=== PATIENT | male | born 1940 | race Caucasian/White ===

== ENCOUNTER → 2016-05-14 | Outpatient (CLI) | payer BC ==
[~2016-05-14] MED LIST: ASCO100T PO; CYAN3INJ IM; CYNI1000 INJ; ERGO1CAP35 PO; ERGO500037 PO; METO50TA7 PO; PANT40TA PO; PLN5 PO; SIMV40TA2 PO
[2016-05-14 15:48] LABS: BLOOD UREA NITROGEN 40 mg/dl (7-18); BUN/CREATININE RATIO 12.4 (10-20); CALCIUM 8.6 mg/dl (8.5-10.1); CARBON DIOXIDE 17 mmol/L (21-32); CHLORIDE 116 mmol/L (98-107); GLUCOSE 117 mg/dl (70-99); PHOSPHORUS 3.2 mg/dl (2.5-4.9); POTASSIUM 4.9 mmol/L (3.5-5.1); SODIUM 141 mmol/L (136-145)
[2016-05-14 15:57] LABS: THYROID STIMULATING HORMONE 0.054 uIu/ml (0.300-4.500)
[2016-05-14 15:58] LABS: URINE PROTIEN/CREAT RATIO 0.7 (0-0.2); URINE TOTAL PROTEIN 56.2 mg/dl (0-11.9)
[2016-05-14 16:02] LABS: HEMATOCRIT 35.1 % (42-52); MEAN CELL VOLUME 94.1 fL (80-100); MEAN CORPUSCULAR HEMOGLOBIN 31.9 pg (25-34); MEAN CORPUSCULAR HGB CONC 33.9 g/dl (32-36); MEAN PLATELET VOLUME 11.2 fL (7.4-10.4); PLATELET COUNT 97 K/uL (130-400); RED BLOOD COUNT 3.73 M/uL (4.7-6.1); WHITE BLOOD COUNT 7.57 K/uL (4.8-10.8)
== END | disposition home or self-care (01) ==
LOC: C.LAB1850 14:18
PROVIDERS: ATTEND Internal Medicine Nephrology
DX: E03.9 Hypothyroidism, unspecified (principal); E55.9 Vitamin D deficiency, unspecified; I12.9 Hypertensive chronic kidney disease with stage 1 through stage 4 chronic kidney disease, or unspecified chronic kidney disease; D64.9 Anemia, unspecified; N18.4 Chronic kidney disease, stage 4 (severe)

== ENCOUNTER 2016-09-03 09:46 | Inpatient (IN) | payer BC, OTHER ==
[2016-09-03] VITALS (8 sets, daily range): BP systolic 111–137; BP diastolic 71–84; PULSE 86–125; TEMP 36.3–36.8; O2SAT 90–94; Ht 185.4 cm; Wt 86.6 kg
[~2016-09-03] VITALS: Ht 185.4 cm; Wt 86.6 kg
[~2016-09-03 09:46] MED LIST changes: -CYNI1000 INJ; -ERGO500037 PO
[2016-09-03] MEDS ORDERED: ALBUT/IPRATROP 3MG/0.5MG NEB 3 ML VIAL INH ONE (10:30)
[2016-09-03 10:36] LABS: ISTAT CREATININE 3.3 mg/dl (0.6-1.3); ISTAT HEMOGLOBIN 15.3 g/dl (14.0-18.0); ISTAT IONIZED CALCIUM 1.23 mmol/l (1.12-1.32)
--- NOTE | 2016-09-03 10:36 | EMERGENCY ROOM VISIT NOTE ---
History Report prepared by Wilder: Harris Peralta Under the Supervision of: Dr. Jessee Genao M.D. First contact with patient: 09:58 Chief Complaint: SHORTNESS OF BREATH Stated Complaint: KIDNEY PROBLEMS, COUGHING UP BLOOD Nursing Triage Summary: Pt c/o kidney disease "I haven't been to dialysis yet but I think I'm headed that way, I'm short of breath". Does have a fistula. SOB worse since last night. States last night he ate pie and it tasted weird and started coughing and coughed up blood then vomited. Pt place on 2L NC in triage. History of Present Illness The patient is a 76 year old male who presents to the Emergency Room with complaints of constant shortness of breath starting around 0230 this morning. The patient states that he had a piece of pie last night, and then he went to sleep. He states that he then woke up about an hour later with some chest pain and then shortness of breath and coughing up blood. He additionally states that around 0600 he started to vomit. The patient states that he is not dialysis yet for his kidney disease. He states that he has a fistula in his left arm, and he is not on oxygen at home. Source of History: patient Onset: 0230 Position: other (global) Quality: other (shortness of breath) Timing: constant Associated Symptoms: + cough (blood), + chest pain, + vomiting Review of Systems See HPI for pertinent positives & negatives. A total of 10 systems reviewed and were otherwise negative. Past Medical & Surgical Medical Problems: (1) CHF (congestive heart failure) (2) Hemoptysis Social History Smoking Status: Former Smoker Marital Status: Occupation Status: retired Current/Historical Medications Scheduled Ascorbic Acid (Vitamin C), 100 MG PO QAM Cyanocobalamin (Cyanocobalamin), 1 ML INJ Q4WK Ergocalciferol (Vitamin D 85715 Unit), 50,000 UNIT PO Q4WK Felodipine (Felodipine ER), 2.5 MG PO QAM Metoprolol Succ (Toprol Xl) (Toprol-Xl), 75 MG PO BID Pantoprazole (Protonix), 40 MG PO QAM Simvastatin (Zocor), 60 MG PO QPM Allergies Coded Allergies: Hydrochlorothiazide (Verified Allergy, Unknown, PT. DOESN'T REMEMBER REACTION, 09/03/16) Aspirin (Verified Adverse Reaction, Intermediate, LARGE DOSES ASPIRIN- BLEEDING AND ABDOMINAL IRRITATION, 09/03/16) CAN TAKE 81 MG. ASPIRIN Q2D Paroxetine (Verified Adverse Reaction, Mild, UPSET STOMACH, 09/03/16) Sertraline (Verified Adverse Reaction, Mild, UPSET STOMACH, 09/03/16) Clopidogrel (Verified Adverse Reaction, Unknown, UPSET STOMACH, 09/03/16) Physical Exam Vital Signs Date Time Temp Pulse Resp B/P (MAP) Pulse Ox O2 Delivery O2 Flow Rate FiO2 09/03/16 11:01 156/92 09/03/16 10:46 98 17 98 09/03/16 10:35 93 16 94 Nasal Cannula 3.0 09/03/16 10:18 97 09/03/16 10:05 94 Nasal Cannula 4.0 09/03/16 10:05 94 Nasal Cannula 4.0 09/03/16 10:03 156/93 09/03/16 09:58 Nasal Cannula 2.0 09/03/16 09:55 88 Room Air 09/03/16 09:49 36.4 107 22 142/80 88 Room Air Physical Exam GENERAL: Patient is a healthy-appearing well-nourished male HEAD: Normocephalic atraumatic EYES: Ocular movements intact pupils equal and react to light OROPHARYNX mucous membranes are moist no exudates present no erythema or edema present NECK: Supple no nuchal rigidity CHEST: Good equal expansion LUNGS: Wheezes throughout lung mercado CARDIAC: Normal S1 and S2 ABDOMEN: Soft nontender no guarding BACK: No CVA tenderness EXTREMITIES: No pain upon palpation normal muscle strength in all groups no clubbing cyanosis or edema NEURO: Patient is following commands and answering questions appropriately. Alert and oriented x3 Cranial Nerves 2-12 grossly intact Medical Decision & Procedures ER Provider Diagnostic Interpretation: Radiology results as stated below per my review and radiologist interpretation: CHEST ONE VIEW PORTABLE CLINICAL HISTORY: Atypical chest pain and hemoptysis COMPARISON STUDY: No previous studies for comparison. FINDINGS: The heart is borderline enlarged. There is an asymmetric right lung pulmonary edema pattern. Clinical correlation is advocated as an infectious/inflammatory process could appear similar. Small pleural effusions are suspected. IMPRESSION: Asymmetric pulmonary edema pattern. Clinical and radiographic follow-up is recommended. Electronically signed by: Garry Higgins M.D. 09/03/2016 10:44 AM Dictated Date/Time: 09/03/2016 10:41 AM (CHEST) THORAX WITHOUT CLINICAL HISTORY: 76 years-old Male presenting with occult pneumonia, history of colorectal carcinoma. TECHNIQUE: Multidetector CT angiography was performed without the use of intravenous contrast. IV contrast: None. COMPARISON: Correlation made to PET/CT from 2013. CT DOSE: The estimated cumulative dose is 304.10 mGy.cm. FINDINGS: Operations Administrator topogram: Diffuse reticular opacities. On soft tissue windows, normal thyroid and thoracic inlet. Multiple subcentimeter mediastinal lymph nodes, possibly reactive. Atherosclerosis of the aortic arch. Top normal heart size. Aortic valve and coronary artery calcification. No pericardial effusion. Small bilateral pleural effusions. Upper abdomen unremarkable for multiple well-defined hypodensities in the liver, unchanged since 2013 and likely hepatic cysts or hamartomas. Enlarged lymph node in the gastrohepatic region measuring 11 mm in the short axis (series 2 image 61), also unchanged since 2013. On lung windows, diffuse emphysematous changes with superimposed groundglass and more solid consolidation primarily involving the right lung and dependent portions of the left lung. Airways remain patent. On bone windows, multilevel degenerative changes of the thoracic spine. IMPRESSION: 1. Multifocal pneumonia superimposed on diffuse emphysema. 2. Bilateral small parapneumonic effusions. No pleural thickening at this time to suggest pleuritis/empyema, allowing for noncontrast technique. Electronically signed by: Davis Wilkinson M.D. 09/03/2016 12:58 PM Dictated Date/Time: 09/03/2016 12:49 PM Laboratory Results 09/03/16 00:00 Red Blood Count 4.20, Mean Corpuscular Volume 93.8, Mean Corpuscular Hemoglobin 31.4, Mean Corpuscular Hemoglobin Concent 33.5, Mean Platelet Volume 10.5, Neutrophils (%) (Auto) 85.3, Lymphocytes (%) (Auto) 6.1, Monocytes (%) (Auto) 8.2, Eosinophils (%) (Auto) 0.1, Basophils (%) (Auto) 0.1, Neutrophils # (Auto) 11.59, Lymphocytes # (Auto) 0.83, Monocytes # (Auto) 1.12, Eosinophils # (Auto) 0.01, Basophils # (Auto) 0.01 09/03/16 11:12 Test 09/03/16 00:00 09/03/16 10:15 09/03/16 10:25 09/03/16 11:12 White Blood Count 13.59 K/uL (4.8-10.8) Red Blood Count 4.20 M/uL (4.7-6.1) Hemoglobin 13.2 g/dL (14.0-18.0) Hematocrit 39.4 % (42-52) Mean Corpuscular Volume 93.8 fL (80-100) Mean Corpuscular Hemoglobin 31.4 pg (25-34) Mean Corpuscular Hemoglobin Concent 33.5 g/dl (32-36) Platelet Count 86 K/uL (130-400) Mean Platelet Volume 10.5 fL (7.4-10.4) Neutrophils (%) (Auto) 85.3 % Lymphocytes (%) (Auto) 6.1 % Monocytes (%) (Auto) 8.2 % Eosinophils (%) (Auto) 0.1 % Basophils (%) (Auto) 0.1 % Neutrophils # (Auto) 11.59 K/uL (1.4-6.5) Lymphocytes # (Auto) 0.83 K/uL (1.2-3.4) Monocytes # (Auto) 1.12 K/uL (0.11-0.59) Eosinophils # (Auto) 0.01 K/uL (0-0.5) Basophils # (Auto) 0.01 K/uL (0-0.2) RDW Standard Deviation 46.7 fL (36.4-46.3) RDW Coefficient of Variation 13.7 % (11.5-14.5) Immature Granulocyte % (Auto) 0.2 % Immature Granulocyte # (Auto) 0.03 K/uL (0.00-0.02) Platelet Estimate DECREASED Total Bilirubin 0.9 mg/dl (0.2-1) Direct Bilirubin mg/dl (0-0.2) Aspartate Amino Transf (AST/SGOT) U/L (15-37) Alanine Aminotransferase (ALT/SGPT) 16 U/L (12-78) Alkaline Phosphatase 73 U/L (45-117) Total Creatine Kinase U/L (39-308) Creatine Kinase MB 16.8 ng/ml (0.5-3.6) Creatine Kinase MB Ratio (0-3.0) Total Protein 7.9 gm/dl (6.4-8.2) Albumin 3.7 gm/dl (3.4-5.0) Lipase 172 U/L (73-393) Bedside Hemoglobin 15.3 g/dl (14.0-18.0) Bedside Hematocrit 45 % (42-52) Bedside Sodium 141 mEq/L (135-144) Bedside Potassium 5.3 mEq/L (3.3-5.0) Bedside Chloride 114 mEq/L (101-112) Bedside Total CO2 18 mEq/l (24-31) Bedside Blood Urea Nitrogen 52 mg/dl (7-18) Bedside Creatinine 3.3 mg/dl (0.6-1.3) Bedside Glucose (other) 188 mg/dl (70-99) Bedside Ionized Calcium (Janes) 1.23 mmol/l (1.12-1.32) Prothrombin Time 10.9 SECONDS (9.0-12.0) Prothromb Time International Ratio 1.0 (0.9-1.1) Activated Partial Thromboplast Time 26.9 SECONDS (21.0-31.0) Partial Thromboplastin Ratio 1.0 Anion Gap 10.0 mmol/L (3-11) Est Creatinine Clear Calc Drug Dose 21.5 ml/min Estimated GFR () 19.9 Estimated GFR (Non- 17.2 BUN/Creatinine Ratio 14.1 (10-20) Calcium Level 9.2 mg/dl (8.5-10.1) Labs reviewed by ED physician. Medications Administered Medications (Trade) Dose Ordered Sig/Edilson Route Start Time Stop Time Status Last Admin Dose Admin Albuterol/ Ipratropium (Duoneb) 12 ml ONE ONCE INH 09/03/16 10:30 09/03/16 10:31 DC 09/03/16 10:35 12 ML Morphine Sulfate (MoRPHine SULFATE INJ) 2 mg Q30M PRN IV 09/03/16 11:30 09/17/16 11:29 09/03/16 13:03 2 MG ECG Indication: SOB/dyspnea Rate (beats per minute): 100 Rhythm: sinus rhythm Findings: 1st degree AV block, RBBB, ST elevation, other (AVR. Depression in the anterior leads) Change: POSTERIOR EKG showed: Normal sinus rhythm at 98. 1st degree AV block and Right bundle branch block ED Course 1012: Past medical records reviewed. The patient was evaluated in room C8. A complete history and physical examination was performed. 1030: DuoNeb 12ml INH 1120: I reevaluated the patient, and he was resting. 1125: I discussed the patient's case with Elaine Arredondo. He is going to evaluate the patient for further treatment. Medical Decision Differential diagnosis: Etiologies such as infections, reactive airway disease, pneumonia, pneumothorax , COPD, CHF, cardiac ischemia, pulmonary embolism, musculoskeletal, gastrointestinal, as well as others were entertained. Blood Pressure Screening: Patient was found to have an elevated blood pressure and was referred to their primary care doctor for recheck and further treatment Medication Reconciliation: I attest that I have personally reviewed the patient' s current medication list This is a 76-year-old male who presents emergency department complaining of hypoxia. The patient has a history of renal failure describing today's 3.3. His chest x-rays concerning for pulmonary edema. He was given an hour-long breathing treatment in the emergency department however I am most concerned patient may have a blood clot. I did discuss the case with the hospitalist service who agreed to admit the patient. Patient was in agreement with the treatment plan. Consults Time Called: 112 Consulting Physician: Elaine Arredondo Returned Call: 1125 I discussed the patient's case with Elaine Arredondo. He is going to evaluate the patient for further treatment. Impression Primary Impression: Hypoxia Scribe Attestation The scribe's documentation has been prepared under my direction and personally reviewed by me in its entirety. I confirm that the note above accurately reflects all work, treatment, procedures, and medical decision making performed by me. Departure Information Dispostion Being Evaluated By Hospitalist Referrals No Doctor, Assigned (PCP)
--- NOTE | 2016-09-03 10:46 | DIAGNOSTIC IMAGING REPORT ---
CHEST ONE VIEW PORTABLE CLINICAL HISTORY: Atypical chest pain and hemoptysis COMPARISON STUDY: No previous studies for comparison. FINDINGS: The heart is borderline enlarged. There is an asymmetric right lung pulmonary edema pattern. Clinical correlation is advocated as an infectious/inflammatory process could appear similar. Small pleural effusions are suspected. IMPRESSION: Asymmetric pulmonary edema pattern. Clinical and radiographic follow-up is recommended. Electronically signed by: Garry Higgins M.D. 09/03/2016 10:44 AM Dictated Date/Time: 09/03/2016 10:41 AM
[2016-09-03] MEDS ORDERED: ATROPINE SULFATE 0.1 MG/ML 10 ML SYR IV ONE (10:59)
[2016-09-03] MEDS ORDERED: DEXTROSE 50% 50 ML SYR IV ONE (10:59)
[2016-09-03] MEDS ORDERED: AMIODARONE HCL INJ 50 MG/ML 3 ML VIAL IV ONE (10:59)
[2016-09-03] MEDS ORDERED: DOBUTamine 500MG / 250ML D5W IV ONE (10:59)
[2016-09-03] MEDS ORDERED: SODIUM CHLORIDE 0.9% 10ML FLUSH IV ONE (10:59)
[2016-09-03] MEDS ORDERED: MAGNESIUM SULFATE 1GM / D5W 1 GM BAG IV ONE (10:59)
[2016-09-03] MEDS ORDERED: DEXTROSE 5% 100 ML BAG IV ONE (10:59)
[2016-09-03] MEDS ORDERED: SODIUM BICARB 8.4% INJ 50 MEQ/50 ML SYR IV ONE (10:59)
[2016-09-03 11:20] LABS: ALKALINE PHOSPHATASE 73 U/L (45-117); ALT/SGPT 16 U/L (12-78); BLOOD UREA NITROGEN 49 mg/dl (7-18); BUN/CREATININE RATIO 14.3 (10-20); CARBON DIOXIDE 17 mmol/L (21-32); CHLORIDE 114 mmol/L (98-107); GLUCOSE 181 mg/dl (70-99); SODIUM 141 mmol/L (136-145)
[2016-09-03] MEDS ORDERED: ACETAMINOPHEN 325 MG TAB PO PRN (11:30)
[2016-09-03] MEDS ORDERED: ALUMINUM/MAGNESIUM/SIMETH (MAALOX MAX) 30 ML UDC PO PRN (11:30)
[2016-09-03] MEDS ORDERED: NITROGLYCERIN 0.4 MG SL PER TAB CHARGE SL PRN (11:30)
[2016-09-03] MEDS ORDERED: POLYETHYLENE (MIRALAX) 17 GM PACK PO PRN (11:30)
[2016-09-03] MEDS ORDERED: MAGNESIUM HYDROXIDE SUSP 30 ML UDC PO PRN (11:30)
[2016-09-03 11:52] LABS: BASO % 0.1 %; BASO ABS # 0.01 K/uL (0-0.2); COMPLETE YES; EOS % 0.1 %; HEMATOCRIT 39.4 % (42-52); IG% 0.2 %; LYMPH % 6.1 %; LYMPH ABS # 0.83 K/uL (1.2-3.4); MEAN CELL VOLUME 93.8 fL (80-100); MEAN CORPUSCULAR HEMOGLOBIN 31.4 pg (25-34); MEAN CORPUSCULAR HGB CONC 33.5 g/dl (32-36); MEAN PLATELET VOLUME 10.5 fL (7.4-10.4); MONO % 8.2 %; NEUT % 85.3 %; PLATELET COUNT 86 K/uL (130-400); PLT ESTIMATE DECREASED; WHITE BLOOD COUNT 13.59 K/uL (4.8-10.8)
[2016-09-03 11:52] LABS: PROTHROMBIN TIME (PATIENT) 10.9 SECONDS (9.0-12.0)
[2016-09-03] MEDS ORDERED: ERGO500037 PO (11:52)
[2016-09-03] MEDS ORDERED: CYNI1000 INJ (11:53)
[2016-09-03 11:58] LABS: BUN/CREATININE RATIO 14.1 (10-20); CALCIUM 9.2 mg/dl (8.5-10.1); CREATININE 3.3 mg/dl (0.60-1.40); POTASSIUM 4.9 mmol/L (3.5-5.1)
--- NOTE | 2016-09-03 12:29 | History and Physical ---
History & Physical Date & Time of Service: Sep 03, 2016 at 11:57 Chief Complaint: Kidney Problems, Coughing Up Blood Primary Care Physician: Davis Kendall M.D. History of Present Illness Source: patient 76 y/o M Hx HTN, HPL, BPH, AAA, CKD IV - Pt had enjoyed a slice of pie before retiring to bed the prior evening. He pt woke up from sleep with SOB and a coughing fit. He then had a few episodes of hemoptysis described as sputum mixed with bright red blood. On arrival to the ER he was tachycardic and hypoxic into the mid 80s. He denies significant CP, N/V or diaphoresis. Initial CXR is read as R sided, asymmetric pulmonary edema. Initial labs reveal a slight troponin elevation in the context of CKD. His creatinine is at baseline. He does not have a history of CHF. Past Medical/Surgical History 1) HTN 2) AAA - stenting x 2 3) R carotid stenosis - CEA 2013 4) Colon CA - partial colectomy 1995 5) BPH 6) CKD IV-V - pt has a fistula in place but has not yet required dialysis. 7) DVT R leg 2008 - states that this was not treated - insisting that he was never on COumadin and does not have a filter. 8) HPL Family History Reviewed - noncontributory Social History Smoking Status: Former Smoker Immunizations History of Influenza Vaccine: No History of Tetanus Vaccine?: No History of Pneumococcal: No History of Hepatitis B Vaccine: No Multi-Drug Resistant Organisms History of MDRO: No Allergies Coded Allergies: Hydrochlorothiazide (Verified Allergy, Unknown, PT. DOESN'T REMEMBER REACTION, 09/03/16) Aspirin (Verified Adverse Reaction, Intermediate, LARGE DOSES ASPIRIN- BLEEDING AND ABDOMINAL IRRITATION, 09/03/16) CAN TAKE 81 MG. ASPIRIN Q2D Paroxetine (Verified Adverse Reaction, Mild, UPSET STOMACH, 09/03/16) Sertraline (Verified Adverse Reaction, Mild, UPSET STOMACH, 09/03/16) Clopidogrel (Verified Adverse Reaction, Unknown, UPSET STOMACH, 09/03/16) Home Medications Scheduled Ascorbic Acid (Vitamin C), 100 MG PO QAM Cyanocobalamin (Cyanocobalamin), 1 ML INJ Q4WK Ergocalciferol (Vitamin D 95338 Unit), 50,000 UNIT PO Q4WK Felodipine (Felodipine ER), 2.5 MG PO QAM Metoprolol Succ (Toprol Xl) (Toprol-Xl), 75 MG PO BID Pantoprazole (Protonix), 40 MG PO QAM Simvastatin (Zocor), 60 MG PO QPM Review of Systems Constitutional: No fever, No chills, No sweats Eyes: No worsening of vision ENT: No hearing loss, No unusual epistaxis, No nasal symptoms Respiratory: + cough, + shortness of breath, + dyspnea on exertion, + dyspnea at rest, + hemoptysis Cardiovascular: + PND, No chest pain, No orthopnea Abdomen: No pain, No nausea, No vomiting Musculoskeletal: No joint pain Genitourinary - Male: No hematuria, No dysuria, No urinary frequency Neurologic: No memory loss, No paralysis, No weakness Psychiatric: No depression symptoms Endocrine: No fatigue Hematologic / Lymphatic: No abnormal bleeding/bruising Integumentary: No rash Allergic / Immunologic: No environmental allergies Physical Exam Vital Signs Date Time Temp Pulse Resp B/P (MAP) Pulse Ox O2 Delivery O2 Flow Rate FiO2 09/03/16 10:35 93 16 94 Nasal Cannula 3.0 09/03/16 10:18 97 09/03/16 10:05 94 Nasal Cannula 4.0 09/03/16 10:05 94 Nasal Cannula 4.0 09/03/16 09:58 Nasal Cannula 2.0 09/03/16 09:55 88 Room Air 09/03/16 09:49 36.4 107 22 142/80 88 Room Air General Appearance: WD/WN, no apparent distress, + pertinent finding (Thin, pleasant, elderly male in no distress) Head: normocephalic, atraumatic Eyes: normal inspection, EOMI ENT: normal ENT inspection, hearing grossly normal, TMs normal, pharynx normal Neck: supple, + JVD (Mostly on R side - slight) Respiratory/Chest: chest non-tender, + crackles (R side only - L lung clear - no wheezing) Cardiovascular: no gallop, no murmur, + tachycardia (regular ), + pertinent finding (Slight JVD) Abdomen/GI: normal bowel sounds, non tender, soft Back: normal inspection, no CVA tenderness Extremities/Musculoskelatal: normal inspection, no calf tenderness, normal capillary refill Neurologic/Psych: commercial relationship manager II-XII nml as tested, no motor/sensory deficits, alert, normal mood/affect, normal reflexes, oriented x 3 Skin: normal color, warm/dry, no rash Diagnostics Laboratory Results Results Past 24 Hours Test 09/03/16 00:00 09/03/16 10:15 09/03/16 10:25 09/03/16 11:12 Range/Units White Blood Count 13.59 4.8-10.8 K/uL Red Blood Count 4.20 4.7-6.1 M/uL Hemoglobin 13.2 14.0-18.0 g/dL Hematocrit 39.4 42-52 % Mean Corpuscular Volume 93.8 80-100 fL Mean Corpuscular Hemoglobin 31.4 25-34 pg Mean Corpuscular Hemoglobin Concent 33.5 32-36 g/dl Platelet Count 86 130-400 K/uL Mean Platelet Volume 10.5 7.4-10.4 fL Neutrophils (%) (Auto) 85.3 % Lymphocytes (%) (Auto) 6.1 % Monocytes (%) (Auto) 8.2 % Eosinophils (%) (Auto) 0.1 % Basophils (%) (Auto) 0.1 % Neutrophils # (Auto) 11.59 1.4-6.5 K/uL Lymphocytes # (Auto) 0.83 1.2-3.4 K/uL Monocytes # (Auto) 1.12 0.11-0.59 K/uL Eosinophils # (Auto) 0.01 0-0.5 K/uL Basophils # (Auto) 0.01 0-0.2 K/uL RDW Standard Deviation 46.7 36.4-46.3 fL RDW Coefficient of Variation 13.7 11.5-14.5 % Immature Granulocyte % (Auto) 0.2 % Immature Granulocyte # (Auto) 0.03 0.00-0.02 K/uL Platelet Estimate DECREASED Sodium Level 141 136-145 mmol/L Potassium Level 3.5-5.1 mmol/L Chloride Level 114 98-107 mmol/L Carbon Dioxide Level 17 21-32 mmol/L Anion Gap 10.0 15.0 16-25 mmol/L Blood Urea Nitrogen 49 7-18 mg/dl Creatinine 3.40 0.60-1.40 mg/dl Est Creatinine Clear Calc Drug Dose 20.9 ml/min Estimated GFR () 19.2 Estimated GFR (Non- 16.6 BUN/Creatinine Ratio 14.3 10-20 Random Glucose 181 70-99 mg/dl Calcium Level 9.0 8.5-10.1 mg/dl Total Bilirubin 0.9 0.2-1 mg/dl Direct Bilirubin 0-0.2 mg/dl Aspartate Amino Transf (AST/SGOT) 15-37 U/L Alanine Aminotransferase (ALT/SGPT) 16 12-78 U/L Alkaline Phosphatase 73 45-117 U/L Total Creatine Kinase 39-308 U/L Creatine Kinase MB 16.8 0.5-3.6 ng/ml Creatine Kinase MB Ratio 0-3.0 Troponin I 0.923 0-0.045 ng/ml Total Protein 7.9 6.4-8.2 gm/dl Albumin 3.7 3.4-5.0 gm/dl Lipase 172 73-393 U/L Bedside Hemoglobin 15.3 14.0-18.0 g/dl Bedside Hematocrit 45 42-52 % Bedside Sodium 141 135-144 mEq/L Bedside Potassium 5.3 3.3-5.0 mEq/L Bedside Chloride 114 101-112 mEq/L Bedside Total CO2 18 24-31 mEq/l Bedside Blood Urea Nitrogen 52 7-18 mg/dl Bedside Creatinine 3.3 0.6-1.3 mg/dl Bedside Glucose (other) 188 70-99 mg/dl Bedside Ionized Calcium (Janes) 1.23 1.12-1.32 mmol/l Prothrombin Time 10.9 9.0-12.0 SECONDS Prothromb Time International Ratio 1.0 0.9-1.1 Activated Partial Thromboplast Time 26.9 21.0-31.0 SECONDS Partial Thromboplastin Ratio 1.0 Diagnostic Radiology CXR read as R sided pulmonary edema - L lung clear EKG Sinus 1st degree AV RBBB Inf and Lat ST changes - depressions - mat represent a strain pattern Impression Assessment and Plan 76 y/o M Hx HTN, HPL, BPH, AAA, CKD IV - Pt had enjoyed a slice of pie before retiring to bed the prior evening. He pt woke up from sleep with SOB and a coughing fit. He then had a few episodes of hemoptysis described as sputum mixed with bright red blood. On arrival to the ER he was tachycardic and hypoxic into the mid 80s. He denies significant CP, N/V or diaphoresis. Initial CXR is read as R sided, asymmetric pulmonary edema. Initial labs reveal a slight troponin elevation in the context of CKD. His creatinine is at baseline. He does not have a history of CHF. 1) Cough/SOB/hemoptysis - differential includes acute CHF/pulmonary edema, aspiration possible plugging of R bronchus, PE. Cannot obtain a CT with contract as he has been teetering on ESRD and dialysis. We have requested an echo, VQ and CT without contrast. We will obtain serial troponins and hold off on anticoagulation pending test results. He states that he may have had R leg swelling a few days ago so we will obtain LE dopplers. NTG paste has been placed. Will consider Lasix again based on imaging results. We may need to consult cardio and/or pulmonary. 2) CKD - per pt creat is approximately baseline - he does have slight hyperK. Placed on low K diet and will trend function. He is receiving an albuterol treatment and we will consider a dose of Lasix or can provide Kayexalate with worsening hyperK. 3) Troponin is above reference range - EKG shows inf and lat depressions - more consistent with strain. We will trend troponins - he has had a hard time tolerating ASA ad Plavix due to gastric issues - we will provide regardless if there is evidence of an evolving [place] 4) HTN - cont Felodipine, Toprol 5) HPL - cont Zocor 6) BPH - cont Flomax - addendum will be provided following test results Full code - SCDs pending test results due to hemoptysis Total time for this admit including review of labs, meds, EKG, imaging, records - discussion with pt and ER attending - 38 min Level of Care Telemetry Resuscitation Status FULL RESUSCITATION VTE Prophylaxis VTE Risk Assessment Done? Y/N: Yes Risk Level: Moderate Given or contraindicated: SCD's
[2016-09-03] MEDS ORDERED: ALBUT/IPRATROP 3MG/0.5MG NEB 3 ML VIAL INH PRN (12:30)
--- NOTE | 2016-09-03 12:59 | DIAGNOSTIC IMAGING REPORT ---
(CHEST) THORAX WITHOUT CLINICAL HISTORY: 76 years-old Male presenting with occult pneumonia, history of colorectal carcinoma. TECHNIQUE: Multidetector CT angiography was performed without the use of intravenous contrast. IV contrast: None. COMPARISON: Correlation made to PET/CT from 2014. CT DOSE: The estimated cumulative dose is 304.10 mGy.cm. FINDINGS: Topography Technician topogram: Diffuse reticular opacities. On soft tissue windows, normal thyroid and thoracic inlet. Multiple subcentimeter mediastinal lymph nodes, possibly reactive. Atherosclerosis of the aortic arch. Top normal heart size. Aortic valve and coronary artery calcification. No pericardial effusion. Small bilateral pleural effusions. Upper abdomen unremarkable for multiple well-defined hypodensities in the liver, unchanged since 2014 and likely hepatic cysts or hamartomas. Enlarged lymph node in the gastrohepatic region measuring 11 mm in the short axis (series 2 image 61), also unchanged since 2014. On lung windows, diffuse emphysematous changes with superimposed groundglass and more solid consolidation primarily involving the right lung and dependent portions of the left lung. Airways remain patent. On bone windows, multilevel degenerative changes of the thoracic spine. IMPRESSION: 1. Multifocal pneumonia superimposed on diffuse emphysema. 2. Bilateral small parapneumonic effusions. No pleural thickening at this time to suggest pleuritis/empyema, allowing for noncontrast technique. Electronically signed by: Davis Wilkinson M.D. 09/03/2016 12:58 PM Dictated Date/Time: 09/03/2016 12:49 PM
[2016-09-03] MEDS: MoRPHine SULFATE 2 MG/ML CARP IV PRN (13:03)
[2016-09-03] MEDS ORDERED: NITROGLYCERIN OINT 2% 1GM PACKET EXT ONE (13:15)
[2016-09-03] MEDS ORDERED: ALBUTEROL 0.083% NEBU SOLN 3 ML VIAL INH PRN (14:30)
[2016-09-03] MEDS ORDERED: AMPICILLIN/SULBACTAM CONSULT ACTIVE PRN ×2 (15:15)
[2016-09-03] MEDS ORDERED: AZITHROMYCIN~PHARMACY CONSULT IN PROGRESS PRN (15:15)
[2016-09-03] MEDS: AMPICILLIN/SULBACTAM SOD INJ 3,000 MG in SODIUM CHLORIDE 0.9% 100ML 100 ML IV SCH (15:36)
[2016-09-03] MEDS: AZITHROMYCIN IV 500 MG in DEXTROSE 5% 250ML 250 ML IV SCH (16:00)
--- NOTE | 2016-09-03 16:41 | ECHOCARDIOGRAM REPORT ---
*NOTICE TO RECEIVING CONSTITUTION PARTY AGENCY This information is strictly Confidential and protected under [place] law. [place] law prohibits you from making any further disclosure of this information unless further disclosure is expressly permitted by the written consent of the person to whom it pertains or is authorized by law. A general authorization for the release of medical or other information is not sufficient for this purpose. Hospital accepts no responsibility if the information is made available to any other person, INCLUDING THE PATIENT. Interpretation Summary * Name: RONNIE MUNOZ Study Date: 09/03/2016 02:15 PM BP: 150/88 mmHg * Patient Location: C.2T\S\S239\S\1 HR: 123 * : 1940 (M/d/yyyy) Gender: Male Height: 72 in * Age: 76 yrs Ethnicity: CA Weight: 189 lb * Ordering Physician: Sarath Colvin * Referring Physician: Self, Referred * Performed By: Ike Bass RCS * * Reason For Study: CHF * BSA: 2.1 m2 * -- Conclusions -- * 1. Normal left ventricular size with moderately reduced systolic function. EF 35-40%. Global hypokinesis. No left ventricular hypertrophy. * 2. The left atrium is mildly dilated. * 3. There is mild mitral regurgitation. * 4. Patient was tachycardic with heart rate mostly in the 120s to 130s throughout the study. * 5. Mildly elevated right ventricular systolic pressure; 40 mmHg. * 6. No prior study available for comparison. Procedure Details * Left Ventricle Normal left ventricular size with moderately reduced systolic function. EF 35-40%. Global hypokinesis. No left ventricular hypertrophy. * Right Ventricle The right ventricle is normal in size and function. The right ventricular systolic function is normal as assessed by tricuspid annular plane systolic excursion (TAPSE) (normal >1.5 cm). * Atria The left atrium is mildly dilated. Right atrial size is normal. There is no evidence of atrial septal defect, but resolution does not allow assessment for a patent foramen ovale. * Mitral Valve The mitral valve is grossly normal. There is no mitral valve stenosis. There is mild mitral regurgitation. * Tricuspid Valve The tricuspid valve is not well visualized, but is grossly normal. There is no tricuspid stenosis. There is mild tricuspid regurgitation. * Aortic Valve The aortic valve is not well visualized. No hemodynamically significant valvular aortic stenosis. There is no significant aortic regurgitation. * Pulmonic Valve The pulmonary valve is inadequately visualized, but the Doppler data is adequate for interpretation. There is no pulmonic valvular stenosis. There is no significant pulmonary regurgitation. * Great Vessels The aortic root is normal size. * Pericardium/Pleural There is no pericardial effusion. * Great Vessels Normal inferior vena cava size and collapsability with sniff indicates a normal right atrial pressure of 3 mmHg * * MMode 2D Measurements and Calculations * IVSd 1.1 cm * * LVIDd 4.4 cm * LVIDs 3.6 cm * LVPWd 1.1 cm * * IVS/LVPW 0.98 * FS 17.2 % * EDV(Teich) 87.9 ml * ESV(Teich) 56.1 ml * EF(Teich) 36.2 % * * EDV(cubed) 85.5 ml * ESV(cubed) 48.5 ml * EF(cubed) 43.3 % * * LV mass(C)d 162.3 grams * LV mass(C)dI 78.0 grams/m\S\2 * * SV(Teich) 31.8 ml * SI(Teich) 15.3 ml/m\S\2 * SV(cubed) 37.0 ml * SI(cubed) 17.8 ml/m\S\2 * * Ao root diam 3.6 cm * Ao root area 10.3 cm\S\2 * * LVOT diam 2.0 cm * LVOT area 3.3 cm\S\2 * * LVAd ap4 27.8 cm\S\2 * LVLd ap4 7.2 cm * EDV(MOD-sp4) 88.7 ml * EDV(sp4-el) 91.5 ml * LVAs ap4 21.3 cm\S\2 * LVLs ap4 6.7 cm * ESV(MOD-sp4) 57.8 ml * ESV(sp4-el) 57.4 ml * EF(MOD-sp4) 34.9 % * EF(sp4-el) 37.3 % * * LVAd ap2 28.5 cm\S\2 * LVLd ap2 7.4 cm * EDV(MOD-sp2) 91.0 ml * EDV(sp2-el) 93.3 ml * LVAs ap2 20.9 cm\S\2 * LVLs ap2 6.8 cm * ESV(MOD-sp2) 53.4 ml * ESV(sp2-el) 54.8 ml * EF(MOD-sp2) 41.3 % * EF(sp2-el) 41.3 % * * LVLd %diff 4.7 % * EDV(MOD-bp) 97.3 ml * LVLs %diff -1.59 % * ESV(MOD-bp) 52.0 ml * EF(MOD-bp) 46.5 % * * SV(MOD-sp4) 30.9 ml * SI(MOD-sp4) 14.9 ml/m\S\2 * * SV(MOD-sp2) 37.6 ml * SI(MOD-sp2) 18.1 ml/m\S\2 * * SV(MOD-bp) 45.2 ml * SI(MOD-bp) 21.8 ml/m\S\2 * * SV(sp4-el) 34.1 ml * SI(sp4-el) 16.4 ml/m\S\2 * * SV(sp2-el) 38.5 ml * SI(sp2-el) 18.5 ml/m\S\2 * * * Doppler Measurements and Calculations * MV E max alejandra 154.9 cm/sec * MV A max alejandra 73.4 cm/sec * * MV E/A 2.1 * * MV dec time 0.08 sec * * Ao V2 max 125.3 cm/sec * Ao max PG 6.3 mmHg * Ao max PG (full) 2.9 mmHg * VINCENT(V,A) 2.4 cm\S\2 * VINCENT(V,D) 2.4 cm\S\2 * * LV V1 max PG 3.4 mmHg * * LV V1 max 91.9 cm/sec * * TR max alejandra 304.1 cm/sec * RVSP(TR) 40.0 mmHg * * RAP systole 3.0 mmHg * *
[2016-09-03] MEDS: ONDANSETRON INJ 2 MG/ML 2 ML VIAL IV PRN (17:14)
[2016-09-03] MEDS ORDERED: SODIUM BICARBONATE 650 MG TAB PO ONE (17:17)
--- NOTE | 2016-09-03 17:22 | Nephrology Consultation ---
Nephrology Consultation Date & Providers Date of Consultation: Sep 03, 2016. Primary Care Provider: Davis Kendall M.D. Referring Provider: Reason for Consultation Assess need for HD in this patient w/ advanced stage IV CKD History of Present Illness Mr. Gardner is a 76 year old white male who is seen at the request of Dr. Colvin to evaluate need to start HD. Medical records in the hospital EMR were reviewed today and are summarized as follows: Mr. Gardner has stage IV CKD w/ baseline creatinine 3.3 (EGFR 17 cc/min). His renal impairment is due to injury at the time of AAA repair, HTN and microvascular disease. He underwent L wrist AVF creation by Dr. Lemus 05/07. His medical history is also significant for HTN, hyperlipidemia, PVD (R CEA, AAA repair w/ reimplantation of L renal artery 2002 [facility] [place]), colon CA s/p partial colectomy 1995, remote tobacco use. Mr. Gardner reports that he has had a productive cough for the last 48 hours. He was woken up last night due to progressive dyspnea and hemoptysis. CXR revealed asymmetric R pulmonary infiltrates. Noncontrast chest CT revealed patchy consolidation throughout the right lung. Patient has been admitted to the PCU and started on antibiotic therapy. Creatinine remains stable at 3.3. Patient has a non-gap metabolic acidosis related to his renal insufficiency. Past Medical/Surgical History Medical: # Stage IV CKD w/ baseline creatinine 3.3 & EGFR 17 cc/min # AAA repair w/ reimplantation of L renal artery 2002 # HTN # Hypercholesterolemia # PVD - s/p R CEA, AAA repair w/ reimplantation of L renal artery 2002 # Colon CA s/p partial colectomy 1995 # Tobacco use - quit smoking 11/05 # Dubose's esophagus requiring assisted PPI therapy Surgical: # R CEA # AAA w/ reimplantation L renal artery 2002 # Colon CA s/p partial colectomy 1995 # AVF created 05/07 with revision 06/07 Allergies Coded Allergies: Hydrochlorothiazide (Verified Allergy, Unknown, PT. DOESN'T REMEMBER REACTION, 09/03/16) Aspirin (Verified Adverse Reaction, Intermediate, LARGE DOSES ASPIRIN- BLEEDING AND ABDOMINAL IRRITATION, 09/03/16) CAN TAKE 81 MG. ASPIRIN Q2D Paroxetine (Verified Adverse Reaction, Mild, UPSET STOMACH, 09/03/16) Sertraline (Verified Adverse Reaction, Mild, UPSET STOMACH, 09/03/16) Clopidogrel (Verified Adverse Reaction, Unknown, UPSET STOMACH, 09/03/16) Inpatient Medications Current Inpatient Medications Medications (Trade) Dose Ordered Sig/Edilson Route Start Time Stop Time Status Last Admin Dose Admin Felodipine (Plendil Tabcr) 2.5 mg QAM PO 09/04/16 09:00 10/04/16 08:59 Metoprolol Succinate (Toprol Xl Tab) 75 mg BID PO 09/03/16 21:00 10/03/16 20:59 Pantoprazole Sodium (Protonix Tab) 40 mg QAM PO 09/04/16 09:00 10/04/16 08:59 Simvastatin (Zocor Tab) 60 mg QPM PO 09/03/16 21:00 10/03/16 20:59 Ascorbic Acid (Vitamin C Tab) 250 mg QAM PO 09/04/16 09:00 10/04/16 08:59 Acetaminophen (Tylenol Tab) 650 mg Q4H PRN PO 09/03/16 11:30 10/03/16 11:29 Al Hydrox/Mg Hydrox/Simethicone (Maalox Max Susp) 15 ml Q4H PRN PO 09/03/16 11:30 10/03/16 11:29 Magnesium Hydroxide (Milk Of Magnesia Susp) 30 ml Q12H PRN PO 09/03/16 11:30 10/03/16 11:29 Zolpidem Tartrate (Ambien Tab) 5 mg HSZ PRN PO 09/03/16 11:30 10/03/16 11:29 Ondansetron HCl (Zofran Inj) 4 mg Q6H PRN IV 09/03/16 11:30 10/03/16 11:29 09/03/16 17:14 4 MG Nitroglycerin (Nitrostat Tab) 0.4 mg UD PRN SL 09/03/16 11:30 10/03/16 11:29 Morphine Sulfate (MoRPHine SULFATE INJ) 2 mg Q30M PRN IV 09/03/16 11:30 09/17/16 11:29 09/03/16 13:03 2 MG Polyethylene (Miralax Powder Packet) 17 gm DAILY PRN PO 09/03/16 11:30 10/03/16 11:29 Albuterol/ Ipratropium (Duoneb) 3 ml Q6R INH 09/03/16 15:00 10/03/16 14:59 Ampicillin Sodium/ Sulbactam Sodium 3000 mg/Sodium Chloride 108 ml @ 200 mls/hr Q12@0400,1600 IV 09/03/16 16:00 09/10/16 15:59 09/03/16 15:36 200 MLS/HR Azithromycin 500 mg/Dextrose 255 ml @ 125 mls/hr DAILY@1600 IV 09/03/16 16:00 09/10/16 15:59 09/03/16 16:00 125 MLS/HR Albuterol Sulfate (Ventolin 0.083% 2.5MG/3ML Neb) 2.5 mg Q4H PRN INH 09/03/16 14:30 10/03/16 14:29 Ampicillin Sodium/ Sulbactam Sodium (Consult) 1 ea UD PRN N/A 09/03/16 15:15 10/03/16 15:14 Miscellaneous Information 1 ea UD PRN N/A 09/03/16 15:15 10/03/16 15:14 Family History Negative for CKD / ESRD Social History Smoking Status: Former Smoker Marital Status: Occupation: retired . Retired. Former smoker Review of Systems Constitutional: No fever Respiratory: + cough, + sputum Cardiovascular: No chest pain Abdomen: + nausea, + vomiting, No pain A complete review of systems was performed. Pertinent positives are noted above. All other systems are negative. Physical Exam Date Time Temp Pulse Resp B/P (MAP) Pulse Ox O2 Delivery O2 Flow Rate FiO2 09/03/16 16:00 91 Nasal Cannula 2.0 09/03/16 15:04 36.8 114 20 137/81 (99) 91 Nasal Cannula 2.0 09/03/16 12:50 36.3 125 20 134/84 (101) 93 Nasal Cannula 2.0 09/03/16 12:41 88 22 150/88 98 09/03/16 12:01 160/84 09/03/16 11:50 94 Nasal Cannula 3.0 09/03/16 11:46 115 19 90 09/03/16 11:01 156/92 09/03/16 10:46 98 17 98 09/03/16 10:35 93 16 94 Nasal Cannula 3.0 09/03/16 10:18 97 09/03/16 10:05 94 Nasal Cannula 4.0 09/03/16 10:05 94 Nasal Cannula 4.0 09/03/16 10:03 156/93 09/03/16 09:58 Nasal Cannula 2.0 09/03/16 09:55 88 Room Air 09/03/16 09:49 36.4 107 22 142/80 88 Room Air General Appearance: no apparent distress Head: normocephalic, atraumatic Eyes: PERRL, EOMI Neck: no adenopathy Respiratory/Chest: + crackles (R >> L) Cardiovascular: + tachycardia Abdomen/GI: normal bowel sounds, non tender, soft Extremities/Musculoskelatal: no calf tenderness, no pedal edema Neurologic/Psych: alert Laboratory Results Last 24 Hours Test 09/03/16 00:00 09/03/16 10:15 09/03/16 10:25 09/03/16 11:12 White Blood Count 13.59 K/uL Red Blood Count 4.20 M/uL Hemoglobin 13.2 g/dL Hematocrit 39.4 % Mean Corpuscular Volume 93.8 fL Mean Corpuscular Hemoglobin 31.4 pg Mean Corpuscular Hemoglobin Concent 33.5 g/dl Platelet Count 86 K/uL Mean Platelet Volume 10.5 fL Neutrophils (%) (Auto) 85.3 % Lymphocytes (%) (Auto) 6.1 % Monocytes (%) (Auto) 8.2 % Eosinophils (%) (Auto) 0.1 % Basophils (%) (Auto) 0.1 % Neutrophils # (Auto) 11.59 K/uL Lymphocytes # (Auto) 0.83 K/uL Monocytes # (Auto) 1.12 K/uL Eosinophils # (Auto) 0.01 K/uL Basophils # (Auto) 0.01 K/uL RDW Standard Deviation 46.7 fL RDW Coefficient of Variation 13.7 % Immature Granulocyte % (Auto) 0.2 % Immature Granulocyte # (Auto) 0.03 K/uL Platelet Estimate DECREASED Sodium Level 141 mmol/L 140 mmol/L Potassium Level mmol/L 4.9 mmol/L Chloride Level 114 mmol/L 115 mmol/L Carbon Dioxide Level 17 mmol/L 15 mmol/L Anion Gap 10.0 mmol/L 15.0 mmol/L 10.0 mmol/L Blood Urea Nitrogen 49 mg/dl 46 mg/dl Creatinine 3.40 mg/dl 3.30 mg/dl Est Creatinine Clear Calc Drug Dose 20.9 ml/min 21.5 ml/min Estimated GFR () 19.2 19.9 Estimated GFR (Non- 16.6 17.2 BUN/Creatinine Ratio 14.3 14.1 Random Glucose 181 mg/dl 173 mg/dl Calcium Level 9.0 mg/dl 9.2 mg/dl Total Bilirubin 0.9 mg/dl Direct Bilirubin mg/dl Aspartate Amino Transf (AST/SGOT) U/L Alanine Aminotransferase (ALT/SGPT) 16 U/L Alkaline Phosphatase 73 U/L Total Creatine Kinase U/L Creatine Kinase MB 16.8 ng/ml Creatine Kinase MB Ratio Troponin I 0.923 ng/ml Total Protein 7.9 gm/dl Albumin 3.7 gm/dl Lipase 172 U/L Bedside Hemoglobin 15.3 g/dl Bedside Hematocrit 45 % Bedside Sodium 141 mEq/L Bedside Potassium 5.3 mEq/L Bedside Chloride 114 mEq/L Bedside Total CO2 18 mEq/l Bedside Blood Urea Nitrogen 52 mg/dl Bedside Creatinine 3.3 mg/dl Bedside Glucose (other) 188 mg/dl Bedside Ionized Calcium (Janes) 1.23 mmol/l Prothrombin Time 10.9 SECONDS Prothromb Time International Ratio 1.0 Activated Partial Thromboplast Time 26.9 SECONDS Partial Thromboplastin Ratio 1.0 Test 09/03/16 14:50 Troponin I 4.190 ng/ml Impression (1) Kidney disease, chronic, stage IV (GFR 15-29 ml/min) (2) Pneumonia (3) Hypoxia (4) Hemoptysis (5) Elevated troponin Mr. Gardner was admitted for evaluation of productive cough, hemoptysis and hypoxemia. Chest CT shows patchy consolidation on the R side. Kidney function is stable w/ baseline creatinine 3.3 (EGFR 17). Metabolic acidosis is on the basis of renal insufficiency and infection. Patient appears to be euvolemic. Recommendations CHRONIC KIDNEY DISEASE: -- Kidney function is stable at this time. Volume status and electrolyte balance are acceptable. No acute indication for HD at this time. -- Monitor serial PRP ID: -- Agree with empiric broad spectrum antibiotics. Recommend dosing for EGFR 17 cc/min CV: -- Positive troponin. Continue to trend. Await Cardiology input.
--- NOTE | 2016-09-03 18:28 | DIAGNOSTIC IMAGING REPORT ---
NUCLEAR PULMONARY VENTILATION/PERFUSION SCAN CLINICAL HISTORY: Hemoptysis. COMPARISON STUDY: Chest x-ray dated 09/03/2016. VQ scan dated 11/24/2013. Chest CT dated 09/03/2016. TECHNIQUE: Initially, ventilation images of both lungs are obtained following the inhalation of 32.8 mCi of aerosolized technetium 99m DTPA. Subsequently, perfusion images of both lungs were obtained following the IV administration of 6.6 mCi of technetium 99m MAA. Ventilation and perfusion images were acquired in the anterior, posterior, and oblique projections. FINDINGS: A chest x-ray and chest CT dated 09/03/2016 show advanced emphysema with extensive airspace consolidation throughout the right lung, consolidative change in the left upper lobe, and small pleural effusions. The ventilation of both lungs is markedly heterogeneous. There is deposition of tracer within the central airways consistent with obstructive physiology. Pulmonary perfusion is markedly heterogeneous. IMPRESSION: Markedly heterogeneous ventilation and perfusion. Findings are indeterminant for pulmonary embolus. Electronically signed by: Johnny Montes M.D. 09/03/2016 6:27 PM Dictated Date/Time: 09/03/2016 6:24 PM
[2016-09-03] MEDS: ALBUT/IPRATROP 3MG/0.5MG NEB 3 ML VIAL INH SCH (19:05)
[2016-09-03 20:49] LABS: BUN/CREATININE RATIO 13.7 (10-20); CALCIUM 8.9 mg/dl (8.5-10.1); CREATININE 3.4 mg/dl (0.60-1.40); POTASSIUM 5.4 mmol/L (3.5-5.1)
[2016-09-03] MEDS: SIMVASTATIN 20 MG TAB PO SCH (21:26)
[2016-09-03] MEDS: METOPROLOL SUCC 25MG EXT REL TAB PO SCH (21:27)
--- NOTE | 2016-09-03 23:00 | DIAGNOSTIC IMAGING REPORT ---
SINGLE VIEW CHEST CLINICAL HISTORY: Dyspnea. Elevated troponin. FINDINGS: An AP, portable, upright chest radiograph is compared to chest x-ray and chest CT performed earlier the same day 09/03/2016. The examination is degraded by portable technique and patient rotation. The cardiomediastinal silhouette is unremarkable. There is atherosclerotic calcification of the thoracic aorta. Advanced emphysema is again noted. There are diffuse bilateral airspace opacities seen throughout both lungs, right greater than left. This is most confluent at the lung bases. There are trace pleural effusions. No pneumothorax is seen. The bony thorax is grossly intact. IMPRESSION: 1. No significant change from today's earlier examinations. 2. Advanced emphysema. 3. Diffuse bilateral airspace opacity, right greater than left. This could represent pneumonia, pulmonary edema, ARDS, and/or pulmonary hemorrhage. Clinical correlation will be required. 4. Small pleural effusions. Electronically signed by: Johnny Montes M.D. 09/03/2016 10:59 PM Dictated Date/Time: 09/03/2016 10:56 PM
[2016-09-04] VITALS (15 sets, daily range): BP systolic 91–106; BP diastolic 57–71; PULSE 81–98; TEMP 36.3–36.7; O2SAT 73–97
[2016-09-04] MEDS ORDERED: VANCOMYCIN INJ 1,000 MG in SODIUM CHLORIDE 0.9% 250ML 250 ML IV STA (00:25)
[2016-09-04] MEDS ORDERED: VANCOMYCIN INJ 1,750 MG in SODIUM CHLORIDE 0.9% 500ML 500 ML IV STA (00:32)
[2016-09-04] MEDS ORDERED: VANCOMYCIN CONSULT ACTIVE PRN (00:45)
[2016-09-04] MEDS: ONDANSETRON INJ 2 MG/ML 2 ML VIAL IV PRN (00:47)
[2016-09-04] MEDS: METHYLPREDNISOLONE IV 60 MG in SYRINGE 0 ML IV SCH ×4 (01:17→16:48)
[2016-09-04] MEDS: ZOLPIDEM TARTRATE 5 MG TAB PO PRN (02:18)
[2016-09-04 03:08] LABS: HEMATOCRIT 43.6 % (42-52); MEAN CELL VOLUME 96.5 fL (80-100); MEAN CORPUSCULAR HEMOGLOBIN 32.5 pg (25-34); MEAN CORPUSCULAR HGB CONC 33.7 g/dl (32-36); MEAN PLATELET VOLUME 11.8 fL (7.4-10.4); PLATELET COUNT 120 K/uL (130-400); RED BLOOD COUNT 4.52 M/uL (4.7-6.1); WHITE BLOOD COUNT 22.05 K/uL (4.8-10.8)
[2016-09-04] MEDS ORDERED: NURSING VERBAL MED ORDER ONE (03:15)
[2016-09-04] MEDS: ALBUT/IPRATROP 3MG/0.5MG NEB 3 ML VIAL INH SCH ×4 (03:21→19:58)
[2016-09-04 03:22] LABS: BUN/CREATININE RATIO 15.4 (10-20); CALCIUM 8.4 mg/dl (8.5-10.1); CREATININE 3.4 mg/dl (0.60-1.40); MAGNESIUM 1.9 mg/dl (1.8-2.4); PHOSPHORUS 3.7 mg/dl (2.5-4.9); POTASSIUM 5.7 mmol/L (3.5-5.1)
[2016-09-04] MEDS: BENZONATATE 100MG CAP PO SCH ×4 (03:48→20:30)
[2016-09-04] MEDS ORDERED: FUROSEMIDE 40 MG/4 ML VIAL ONE ×2 (04:38→05:23)
[2016-09-04] MEDS ORDERED: FUROSEMIDE 40 MG/4 ML VIAL IV STA (04:54)
[2016-09-04] MEDS: AMPICILLIN/SULBACTAM SOD INJ 3,000 MG in SODIUM CHLORIDE 0.9% 100ML 100 ML IV SCH ×2 (05:17→16:36)
[2016-09-04] MEDS: MoRPHine SULFATE 2 MG/ML CARP IV PRN (05:18)
[2016-09-04] MEDS ORDERED: ASPIRIN 325 MG ECTAB PO ONE (07:45)
[2016-09-04] MEDS: PANTOprazole SOD 40 MG TAB PO SCH (07:46)
[2016-09-04] MEDS: ASCORBIC ACID 500 MG TAB PO SCH (07:46)
--- NOTE | 2016-09-04 08:29 | Clinical Documentation Query ---
CLINICAL DOCUMENTATION QUERY 76 year old male who presents to the Emergency Room with complaints of constant shortness of breath. Query #1/3 In your clinical opinion is this patient being managed for: ( x ) NSTEMI/Type II ID in setting of pneumonia, respiratory failure/hypoxia, and CKD IV treated with O2, Lasix, Echo, Cardiology consult. ( ) Other explanation of clinical findings (Please Explain) ( ) Unable to determine (Please Define) ( ) Need to Discuss ( ) Not Agree The medical record reflects the following clinical findings, treatment, and risk factors. Clinical Indicators: crackle by lung exam, Nursing notes hypoxia of 73% on 6L NC. Troponin's 0.923, 4.190, 15.800. +JVD, Echo with EF of 35-40% with global hypokinesis. Anterolateral infarct by ECG and arrhythmia of Atrial flutter. Treatment: IV Lasix, O2 at 15L via Oxymask, BiPAP, Echo, telemetry, Tobar, I/O's, daily weights, Risk Factors: Age, HTN, HPL, Query #2/3 In your clinical opinion is this patient being managed for: ( ) Acute systolic CHF ( ) Other explanation of clinical findings (Please Explain) ( x ) Unable to determine (Please Define) He also presented with signs of pneumonia with leukocytosis and ground glass opacities ( ) Need to Discuss ( ) Not Agree The medical record reflects the following clinical findings, treatment, and risk factors. Clinical Indicators: Crackles and JVD by exam, hypoxia 73% on 6L NC, tachycardia 107+, Echo with EF of 35-40% with global hypokinesis Treatment: IV Lasix, O2 at 15L via Oxymask, BiPAP, Echo, telemetry, Tobar, I/O's, daily weights, Cardiology consult Risk Factors: Age, HTN, CKD IV, tachycardia, ?NSTEMI, Atrial arrhythmia. Query #3/3 On early AM of 09/04 patient is documented as by hypoxic of 73% on 6L NC and noted to be in respiratory distress. In your clinical opinion is this patient being managed for: ( x ) Acute respiratory failure in setting of pneumonia, ?CHF, and ?of NSTEMI. ( ) Other explanation of clinical findings (Please Explain) ( ) Unable to determine (Please Define) ( ) Need to Discuss ( ) Not Agree The medical record reflects the following clinical findings, treatment, and risk factors. Clinical Indicators: Per nursing notes 73% on 6L NC and in respiratory distress. + JVD, + crackles by H&P exam. Reduced EF by Echo and global hypokinesis. Treatment: IV Lasix, O2 at 15L via Oxymask, BiPAP, Echo, telemetry, Tobar, I/O's, daily weights, Cardiology consult, IV Vancomycin, IV Azithromycin, IV Unasyn, Risk Factors: Age, Underlying pneumonia, and question of NSTEMI and CHF. Please clarify and document your clinical opinion in the progress notes and discharge summary. Terms such as "probable", "suspected", "likely", "questionable", "possible", or "still to be ruled out" are acceptable. IF IN AGREEMENT, YOU MUST DOCUMENT ABOVE DIAGNOSTIC STATEMENT IN DAILY PROGRESS NOTES AND DISCHARGE SUMMARY. This document is not part of the patient's record. Thank You, Narciso Sanchez, RN [phone]
[2016-09-04] MEDS ORDERED: SODIUM BICARBONATE 650 MG TAB PO ONE (08:57)
[2016-09-04] MEDS ORDERED: SODIUM POLYST. SULF SUSP 15G/60ML PO STA (08:59)
[2016-09-04] MEDS ORDERED: SODIUM BICARBONATE 650 MG TAB PO SCH (09:00)
--- NOTE | 2016-09-04 09:37 | Progress Note ---
Subjective Date of Service: Sep 04, 2016. Subjective Pt evaluation today including: conversation w/ patient, physical exam, lab review, review of studies, conversation w/ career consultant, review of inpatient medication list Pain: denies pain PO Intake: tolerated breakfast Voiding: crawford catheter in place patient breathing on BIPAP, appears comfortable, says that his breathing is better since time of admission says that he was feeling bloated for several days prior to admission, but dyspnea and cough started suddenly had reported hemoptysis on admission but has resolved, white sputum this AM has an appetite, had a BM yesterday denies any chest pain, discussed troponin elevation to 15 reviewed labs, Cr stable at 3.4, K high at 5.7, troponin elevated at 15, evidence of metabolic acidosis with HCO3 15 reviewed images personally discussed the case with Dr. Romero, knows patient well from following as outpatient Problem List Medical Problems: (1) Hypoxia Status: Acute Review of Systems Constitutional: + weakness, + fatigue Respiratory: + cough, + sputum, + shortness of breath, + dyspnea at rest Abdomen: + problem reported (mild bloating) All Other Systems: Reviewed and Negative Medications Current Inpatient Medications Medications (Trade) Dose Ordered Sig/Edilson Route Start Time Stop Time Status Last Admin Dose Admin Felodipine (Plendil Tabcr) 2.5 mg QAM PO 09/04/16 09:00 10/04/16 08:59 Metoprolol Succinate (Toprol Xl Tab) 75 mg BID PO 09/03/16 21:00 10/03/16 20:59 09/03/16 21:27 75 MG Pantoprazole Sodium (Protonix Tab) 40 mg QAM PO 09/04/16 09:00 10/04/16 08:59 09/04/16 07:46 40 MG Simvastatin (Zocor Tab) 60 mg QPM PO 09/03/16 21:00 10/03/16 20:59 09/03/16 21:26 60 MG Ascorbic Acid (Vitamin C Tab) 250 mg QAM PO 09/04/16 09:00 10/04/16 08:59 09/04/16 07:46 250 MG Acetaminophen (Tylenol Tab) 650 mg Q4H PRN PO 09/03/16 11:30 10/03/16 11:29 Al Hydrox/Mg Hydrox/Simethicone (Maalox Max Susp) 15 ml Q4H PRN PO 09/03/16 11:30 10/03/16 11:29 Magnesium Hydroxide (Milk Of Magnesia Susp) 30 ml Q12H PRN PO 09/03/16 11:30 10/03/16 11:29 Zolpidem Tartrate (Ambien Tab) 5 mg HSZ PRN PO 09/03/16 11:30 10/03/16 11:29 09/04/16 02:18 5 MG Ondansetron HCl (Zofran Inj) 4 mg Q6H PRN IV 09/03/16 11:30 10/03/16 11:29 09/04/16 00:47 4 MG Nitroglycerin (Nitrostat Tab) 0.4 mg UD PRN SL 09/03/16 11:30 10/03/16 11:29 Morphine Sulfate (MoRPHine SULFATE INJ) 2 mg Q30M PRN IV 09/03/16 11:30 09/17/16 11:29 09/04/16 05:18 2 MG Polyethylene (Miralax Powder Packet) 17 gm DAILY PRN PO 09/03/16 11:30 10/03/16 11:29 Albuterol/ Ipratropium (Duoneb) 3 ml Q6R INH 09/03/16 15:00 10/03/16 14:59 09/04/16 07:15 3 ML Ampicillin Sodium/ Sulbactam Sodium 3000 mg/Sodium Chloride 108 ml @ 200 mls/hr Q12@0400,1600 IV 09/03/16 16:00 09/10/16 15:59 09/04/16 05:17 200 MLS/HR Azithromycin 500 mg/Dextrose 255 ml @ 125 mls/hr DAILY@1600 IV 09/03/16 16:00 09/10/16 15:59 09/03/16 16:00 125 MLS/HR Albuterol Sulfate (Ventolin 0.083% 2.5MG/3ML Neb) 2.5 mg Q4H PRN INH 09/03/16 14:30 10/03/16 14:29 09/04/16 05:00 2.5 MG Ampicillin Sodium/ Sulbactam Sodium (Consult) 1 ea UD PRN N/A 09/03/16 15:15 10/03/16 15:14 Miscellaneous Information 1 ea UD PRN N/A 09/03/16 15:15 10/03/16 15:14 Methylprednisolone Sodium Succinate 60 mg/Syringe 0.96 ml @ 1.5 mls/min Q6H IV 09/04/16 00:30 10/04/16 00:29 09/04/16 06:31 1.5 MLS/MIN Vancomycin HCl (Consult) 1 ea UD PRN N/A 09/04/16 00:45 10/04/16 00:44 Benzonatate (Tessalon Perles Cap) 100 mg TID PO 09/04/16 09:00 10/04/16 08:59 09/04/16 07:44 100 MG Sodium Bicarbonate (Sodium Bicarbonate Tab) 650 mg BID PO 09/04/16 09:00 10/04/16 08:59 Objective Vital Signs Date Time Temp Pulse Resp B/P (MAP) Pulse Ox O2 Delivery O2 Flow Rate FiO2 09/04/16 07:24 36.5 85 18 91/57 (68) 92 BiPAP 09/04/16 07:15 83 36 92 BiPAP/CPAP 60 09/04/16 07:15 83 92 60 09/04/16 05:01 86 94 60 09/04/16 05:00 89 28 94 BiPAP/CPAP 60 09/04/16 04:40 36.4 98 18 101/67 (78) 73 5.0 09/04/16 04:00 Nasal Cannula 6.0 09/04/16 03:00 88 18 94 Nasal Cannula 6.0 09/03/16 23:59 Nasal Cannula 5.0 09/03/16 23:32 36.8 93 18 114/73 (87) 90 5.0 09/03/16 20:00 Nasal Cannula 6.0 09/03/16 19:05 86 18 94 Nasal Cannula 6.0 09/03/16 18:58 36.6 96 22 111/71 (84) 92 Nasal Cannula 5.0 09/03/16 16:00 91 Nasal Cannula 2.0 09/03/16 15:04 36.8 114 20 137/81 (99) 91 Nasal Cannula 2.0 09/03/16 12:50 36.3 125 20 134/84 (101) 93 Nasal Cannula 2.0 09/03/16 12:41 88 22 150/88 98 09/03/16 12:01 160/84 09/03/16 11:50 94 Nasal Cannula 3.0 09/03/16 11:46 115 19 90 09/03/16 11:01 156/92 09/03/16 10:46 98 17 98 09/03/16 10:35 93 16 94 Nasal Cannula 3.0 09/03/16 10:18 97 09/03/16 10:05 94 Nasal Cannula 4.0 09/03/16 10:05 94 Nasal Cannula 4.0 09/03/16 10:03 156/93 09/03/16 09:58 Nasal Cannula 2.0 09/03/16 09:55 88 Room Air 09/03/16 09:49 36.4 107 22 142/80 88 Room Air Physical Exam General Appearance: WD/WN, no apparent distress Neck: supple, no adenopathy, no JVD, trachea midline Respiratory/Chest: chest non-tender, no respiratory distress, no accessory muscle use, + decreased breath sounds, + crackles Cardiovascular: regular rate, rhythm, no edema, no gallop, no JVD, no murmur Abdomen: normal bowel sounds, non tender, soft, no organomegaly Extremities: normal range of motion, non-tender, normal inspection, no pedal edema, no calf tenderness, normal capillary refill, pelvis stable Neurologic/Psychiatric: 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, no motor/sensory deficits, alert, normal mood/affect, oriented x 3 Skin: normal color, warm/dry, no rash Laboratory Results Last 24 Hours Test 09/03/16 10:15 09/03/16 10:25 09/03/16 11:12 09/03/16 14:50 Sodium Level 141 mmol/L 140 mmol/L Potassium Level mmol/L 4.9 mmol/L Chloride Level 114 mmol/L 115 mmol/L Carbon Dioxide Level 17 mmol/L 15 mmol/L Anion Gap 10.0 mmol/L 15.0 mmol/L 10.0 mmol/L Blood Urea Nitrogen 49 mg/dl 46 mg/dl Creatinine 3.40 mg/dl 3.30 mg/dl Est Creatinine Clear Calc Drug Dose 20.9 ml/min 21.5 ml/min Estimated GFR () 19.2 19.9 Estimated GFR (Non- 16.6 17.2 BUN/Creatinine Ratio 14.3 14.1 Random Glucose 181 mg/dl 173 mg/dl Calcium Level 9.0 mg/dl 9.2 mg/dl Total Bilirubin 0.9 mg/dl Direct Bilirubin mg/dl Aspartate Amino Transf (AST/SGOT) U/L Alanine Aminotransferase (ALT/SGPT) 16 U/L Alkaline Phosphatase 73 U/L Total Creatine Kinase U/L Creatine Kinase MB 16.8 ng/ml Creatine Kinase MB Ratio Troponin I 0.923 ng/ml 4.190 ng/ml Total Protein 7.9 gm/dl Albumin 3.7 gm/dl Lipase 172 U/L Bedside Hemoglobin 15.3 g/dl Bedside Hematocrit 45 % Bedside Sodium 141 mEq/L Bedside Potassium 5.3 mEq/L Bedside Chloride 114 mEq/L Bedside Total CO2 18 mEq/l Bedside Blood Urea Nitrogen 52 mg/dl Bedside Creatinine 3.3 mg/dl Bedside Glucose (other) 188 mg/dl Bedside Ionized Calcium (Janes) 1.23 mmol/l Prothrombin Time 10.9 SECONDS Prothromb Time International Ratio 1.0 Activated Partial Thromboplast Time 26.9 SECONDS Partial Thromboplastin Ratio 1.0 Test 09/03/16 20:04 09/04/16 02:55 09/04/16 08:32 Sodium Level 141 mmol/L 140 mmol/L Potassium Level 5.4 mmol/L 5.7 mmol/L Chloride Level 114 mmol/L 115 mmol/L Carbon Dioxide Level 14 mmol/L 15 mmol/L Anion Gap 13.0 mmol/L 10.0 mmol/L Blood Urea Nitrogen 47 mg/dl 52 mg/dl Creatinine 3.40 mg/dl 3.40 mg/dl Est Creatinine Clear Calc Drug Dose 20.9 ml/min 20.9 ml/min Estimated GFR () 19.2 19.2 Estimated GFR (Non- 16.6 16.6 BUN/Creatinine Ratio 13.7 15.4 Random Glucose 168 mg/dl 149 mg/dl Calcium Level 8.9 mg/dl 8.4 mg/dl Troponin I 15.800 ng/ml White Blood Count 22.05 K/uL Red Blood Count 4.52 M/uL Hemoglobin 14.7 g/dL Hematocrit 43.6 % Mean Corpuscular Volume 96.5 fL Mean Corpuscular Hemoglobin 32.5 pg Mean Corpuscular Hemoglobin Concent 33.7 g/dl RDW Standard Deviation 49.5 fL RDW Coefficient of Variation 14.1 % Platelet Count 120 K/uL Mean Platelet Volume 11.8 fL Nucleated RBC Absolute Count (auto) 0.02 K/uL Nucleated Red Blood Cells % 0.1 % Phosphorus Level 3.7 mg/dl Magnesium Level 1.9 mg/dl Assessment and Plan 76 y/o M Hx HTN, HPL, BPH, AAA, CKD IV - patient woke up suddenly with coughing spell, no dyspnea or cough prior to going to sleep. He then had a few episodes of hemoptysis described as sputum mixed with bright red blood. On arrival to the ER he was tachycardic and hypoxic into the mid 80s. - Severe sepsis secondary to multifocal pneumonia, POA: continue Vancomycin, Unasyn and Zithromax leukocytosis trending up, afebrile consult pulmonology for recommendations going forward interesting because he had no symptoms leading up to time of presentation, woke up suddenly raises possibility that he may have had significant aspiration event while sleeping - Acute hypoxic respiratory failure: requiring BIPAP currently not ideal with pneumonia as we want to get out sputum try to titrate off BIPAP, currently breathing comfortably, no signs of distress or accessory muscles, speaking in sentences cause is multifocal pneumonia on emphysema V/Q indeterminate, will check dopplers to r/o DVT - NSTEMI: troponin rising, up to 15 this AM, denies any chest pain, ST depression on tele monitor, will order stat EKG echocardiogram shows EF 35-40% with global hypokinesis aspirin 325mg this AM, hesitant to start heparin gtt with reported hemoptysis but unsure if he actually had hemoptysis on metoprolol and Zocor difficult situation with CKD stage IV, heart cath could potentially push him into ESRD consult cardiology for recommendations - CKD stage IV: Cr stable at 3.4, K elevated at 5.7, will give Kayexalate this AM and repeat labs later today metabolic acidosis, bicarbonate ordered by nephrology to correct, follow labs - HTN: continue Metoprolol - Dyslipidemia: Zocor - BPH: Flomax full code DVT prophylaxis: hold on chemical prophylaxis with reported hemoptysis
--- NOTE | 2016-09-04 10:02 | Nephrology Progress Note ---
Nephrology Progress Note Date of Service Sep 04, 2016. Chief Complaint Assess need for HD in this patient w/ advanced stage IV CKD Subjective Mr. Gardner was seen & examined in the PCU this morning. Care was discussed w/ the hospitalist service. Mr. Gardner has become progressively short of breath overnight. He required initiation of BiPAP therapy. V/Q scan has been indeterminated. LE doppler has not yet been completed. Kidney function is stable. Tobar catheter is in place draining clear yellow urine. Troponin continues to trend upward. Patient denies angina or pleurisy. Review of Systems Constitutional: No fever Cardiovascular: No chest pain Respiratory: + productive cough, + dyspnea at rest Abdomen: No pain, No nausea, No vomiting Extremities: No leg edema A complete review of systems was performed. Pertinent positives are noted above. All other systems are negative. Vital Signs Last 8 Hrs Date Time Temp Pulse Resp B/P (MAP) Pulse Ox O2 Delivery O2 Flow Rate FiO2 09/04/16 07:40 BiPAP 60 09/04/16 07:24 36.5 85 18 91/57 (68) 92 BiPAP 09/04/16 07:15 83 36 92 BiPAP/CPAP 60 09/04/16 07:15 83 92 60 09/04/16 05:01 86 94 60 09/04/16 05:00 89 28 94 BiPAP/CPAP 60 09/04/16 04:40 36.4 98 18 101/67 (78) 73 5.0 09/04/16 04:00 Nasal Cannula 6.0 09/04/16 03:00 88 18 94 Nasal Cannula 6.0 Last Recorded Weight Weight (Kilograms): 86.400 Physical Exam General Appearance: no apparent distress (appears comfortable on BiPAP) Head: normocephalic, atraumatic Eyes: PERRL Neck: no adenopathy Respiratory/Chest: + crackles (R >> L) Cardiovascular: + tachycardia Abdomen/GI: normal bowel sounds, non tender, soft Extremities/Musculoskelatal: no calf tenderness, no pedal edema Neurologic/Psych: alert Family History Negative for CKD / ESRD Social History Marital Status: Occupation: retired . Retired. Former smoker Laboratory Results Past 24 Hours ECHOCARDIOGRAM 09/03/16: * 1. Normal left ventricular size with moderately reduced systolic function. EF 35-40%. Global hypokinesis. No left ventricular hypertrophy. * 2. The left atrium is mildly dilated. * 3. There is mild mitral regurgitation. * 4. Patient was tachycardic with heart rate mostly in the 120s to 130s throughout the study. * 5. Mildly elevated right ventricular systolic pressure; 40 mmHg. 09/04/16 02:55 09/03/16 10:15 09/03/16 11:12 09/03/16 20:04 09/04/16 02:55 Test 09/03/16 10:15 09/03/16 10:25 09/03/16 11:12 09/03/16 14:50 Anion Gap 10.0 mmol/L (3-11) 15.0 mmol/L (16-25) 10.0 mmol/L (3-11) Est Creatinine Clear Calc Drug Dose 20.9 ml/min 21.5 ml/min Estimated GFR () 19.2 19.9 Estimated GFR (Non- 16.6 17.2 BUN/Creatinine Ratio 14.3 (10-20) 14.1 (10-20) Calcium Level 9.0 mg/dl (8.5-10.1) 9.2 mg/dl (8.5-10.1) Total Bilirubin 0.9 mg/dl (0.2-1) Direct Bilirubin mg/dl (0-0.2) Aspartate Amino Transf (AST/SGOT) U/L (15-37) Alanine Aminotransferase (ALT/SGPT) 16 U/L (12-78) Alkaline Phosphatase 73 U/L (45-117) Total Creatine Kinase U/L (39-308) Creatine Kinase MB 16.8 ng/ml (0.5-3.6) Creatine Kinase MB Ratio (0-3.0) Troponin I 0.923 ng/ml (0-0.045) 4.190 ng/ml (0-0.045) Total Protein 7.9 gm/dl (6.4-8.2) Albumin 3.7 gm/dl (3.4-5.0) Lipase 172 U/L (73-393) Bedside Hemoglobin 15.3 g/dl (14.0-18.0) Bedside Hematocrit 45 % (42-52) Bedside Sodium 141 mEq/L (135-144) Bedside Potassium 5.3 mEq/L (3.3-5.0) Bedside Chloride 114 mEq/L (101-112) Bedside Total CO2 18 mEq/l (24-31) Bedside Blood Urea Nitrogen 52 mg/dl (7-18) Bedside Creatinine 3.3 mg/dl (0.6-1.3) Bedside Glucose (other) 188 mg/dl (70-99) Bedside Ionized Calcium (Janes) 1.23 mmol/l (1.12-1.32) Prothrombin Time 10.9 SECONDS (9.0-12.0) Prothromb Time International Ratio 1.0 (0.9-1.1) Activated Partial Thromboplast Time 26.9 SECONDS (21.0-31.0) Partial Thromboplastin Ratio 1.0 Test 09/03/16 20:04 09/04/16 02:55 09/04/16 08:32 Anion Gap 13.0 mmol/L (3-11) 10.0 mmol/L (3-11) Est Creatinine Clear Calc Drug Dose 20.9 ml/min 20.9 ml/min Estimated GFR () 19.2 19.2 Estimated GFR (Non- 16.6 16.6 BUN/Creatinine Ratio 13.7 (10-20) 15.4 (10-20) Calcium Level 8.9 mg/dl (8.5-10.1) 8.4 mg/dl (8.5-10.1) Troponin I 15.800 ng/ml (0-0.045) Red Blood Count 4.52 M/uL (4.7-6.1) Mean Corpuscular Volume 96.5 fL (80-100) Mean Corpuscular Hemoglobin 32.5 pg (25-34) Mean Corpuscular Hemoglobin Concent 33.7 g/dl (32-36) RDW Standard Deviation 49.5 fL (36.4-46.3) RDW Coefficient of Variation 14.1 % (11.5-14.5) Mean Platelet Volume 11.8 fL (7.4-10.4) Nucleated RBC Absolute Count (auto) 0.02 K/uL (0-0) Nucleated Red Blood Cells % 0.1 % Phosphorus Level 3.7 mg/dl (2.5-4.9) Magnesium Level 1.9 mg/dl (1.8-2.4) Random Vancomycin Level 22.6 mcg/ml Allergies Coded Allergies: Hydrochlorothiazide (Verified Allergy, Unknown, PT. DOESN'T REMEMBER REACTION, 09/03/16) Aspirin (Verified Adverse Reaction, Intermediate, LARGE DOSES ASPIRIN- BLEEDING AND ABDOMINAL IRRITATION, 09/03/16) CAN TAKE 81 MG. ASPIRIN Q2D Paroxetine (Verified Adverse Reaction, Mild, UPSET STOMACH, 09/03/16) Sertraline (Verified Adverse Reaction, Mild, UPSET STOMACH, 09/03/16) Clopidogrel (Verified Adverse Reaction, Unknown, UPSET STOMACH, 09/03/16) Medications Current Inpatient Medications Medications (Trade) Dose Ordered Sig/Edilson Route Start Time Stop Time Status Last Admin Dose Admin Felodipine (Plendil Tabcr) 2.5 mg QAM PO 09/04/16 09:00 10/04/16 08:59 Metoprolol Succinate (Toprol Xl Tab) 75 mg BID PO 09/03/16 21:00 10/03/16 20:59 09/03/16 21:27 75 MG Pantoprazole Sodium (Protonix Tab) 40 mg QAM PO 09/04/16 09:00 10/04/16 08:59 09/04/16 07:46 40 MG Simvastatin (Zocor Tab) 60 mg QPM PO 09/03/16 21:00 10/03/16 20:59 09/03/16 21:26 60 MG Ascorbic Acid (Vitamin C Tab) 250 mg QAM PO 09/04/16 09:00 10/04/16 08:59 09/04/16 07:46 250 MG Acetaminophen (Tylenol Tab) 650 mg Q4H PRN PO 09/03/16 11:30 10/03/16 11:29 Al Hydrox/Mg Hydrox/Simethicone (Maalox Max Susp) 15 ml Q4H PRN PO 09/03/16 11:30 10/03/16 11:29 Magnesium Hydroxide (Milk Of Magnesia Susp) 30 ml Q12H PRN PO 09/03/16 11:30 10/03/16 11:29 Zolpidem Tartrate (Ambien Tab) 5 mg HSZ PRN PO 09/03/16 11:30 10/03/16 11:29 09/04/16 02:18 5 MG Ondansetron HCl (Zofran Inj) 4 mg Q6H PRN IV 09/03/16 11:30 10/03/16 11:29 7/14/17 00:47 4 MG Nitroglycerin (Nitrostat Tab) 0.4 mg UD PRN SL 09/03/16 11:30 10/03/16 11:29 Morphine Sulfate (MoRPHine SULFATE INJ) 2 mg Q30M PRN IV 09/03/16 11:30 09/17/16 11:29 09/04/16 05:18 2 MG Polyethylene (Miralax Powder Packet) 17 gm DAILY PRN PO 09/03/16 11:30 10/03/16 11:29 Albuterol/ Ipratropium (Duoneb) 3 ml Q6R INH 09/03/16 15:00 10/03/16 14:59 09/04/16 07:15 3 ML Ampicillin Sodium/ Sulbactam Sodium 3000 mg/Sodium Chloride 108 ml @ 200 mls/hr Q12@0400,1600 IV 09/03/16 16:00 09/10/16 15:59 09/04/16 05:17 200 MLS/HR Azithromycin 500 mg/Dextrose 255 ml @ 125 mls/hr DAILY@1600 IV 09/03/16 16:00 09/10/16 15:59 09/03/16 16:00 125 MLS/HR Albuterol Sulfate (Ventolin 0.083% 2.5MG/3ML Neb) 2.5 mg Q4H PRN INH 09/03/16 14:30 10/03/16 14:29 09/04/16 05:00 2.5 MG Ampicillin Sodium/ Sulbactam Sodium (Consult) 1 ea UD PRN N/A 09/03/16 15:15 10/03/16 15:14 Miscellaneous Information 1 ea UD PRN N/A 09/03/16 15:15 10/03/16 15:14 Methylprednisolone Sodium Succinate 60 mg/Syringe 0.96 ml @ 1.5 mls/min Q6H IV 09/04/16 00:30 10/04/16 00:29 09/04/16 06:31 1.5 MLS/MIN Vancomycin HCl (Consult) 1 ea UD PRN N/A 09/04/16 00:45 10/04/16 00:44 Benzonatate (Tessalon Perles Cap) 100 mg TID PO 09/04/16 09:00 10/04/16 08:59 7/14/17 07:44 100 MG Sodium Bicarbonate (Sodium Bicarbonate Tab) 650 mg BID PO 09/04/16 09:00 10/04/16 08:59 Impression (1) Kidney disease, chronic, stage IV (GFR 15-29 ml/min) (2) Pneumonia (3) Hypoxia (4) Hemoptysis (5) Elevated troponin Mr. Gardner was admitted for evaluation of productive cough, hemoptysis and hypoxemia. Chest CT shows patchy consolidation on the R side. V/Q scan is indeterminate. Kidney function is stable w/ baseline creatinine 3.3 (EGFR 17). Metabolic acidosis is on the basis of renal insufficiency and infection. Patient appears to be euvolemic. Troponin is progressively increasing. Echocardiogram 09/03 LVEF 35 - 40% w/ global hypokinesis. 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 Volume status is acceptable. No acute indication for HD at this time. -- Will provide NaHCO3 650 mg po BID to correct metabolic acidosis -- Will provide 30 g Kayexelate po x 1 this am to correct hyperkalemia -- Will recheck PRP this afternoon ID: -- Agree with empiric broad spectrum antibiotics. Recommend dosing for EGFR 17 cc/min -- WBC # is increasing. Recommend blood & sputum cultures. Recommend consultation w/ Pulmonology. Patient may require bronchoscopy due to patchy R lung consolidations CV: -- Troponin is trending up. Patient remains asymptomatic. 09/03 Echocardiogram results reviewed today. Recommend consultation w/ Cardiology
--- NOTE | 2016-09-04 11:08 | Pharmacy Progress Note ---
Pharmacy Abx Initial Consult Date of Service Sep 04, 2016. Pharmacy Dosing Scope Date of Consult: 09/04/16 Consultation requested by: Dr. Colvin Pharmacy is consulted to initiate Vanco/Azithromycin/Unasyn therapy, order appropriate labs and adjust drug dose/frequency. Subjective The patient is a 76 year old male admitted on Sep 03, 2016 at 11:36. Objective Height (Feet): 6 Height (Inches): 1.00 Weight (Kilograms): 86.400 Vital Signs (Past 12Hrs) Vital Signs Past 12 Hours Date Time Temp Pulse Resp B/P (MAP) Pulse Ox O2 Delivery O2 Flow Rate FiO2 09/04/16 07:40 BiPAP 60 09/04/16 07:24 36.5 85 18 91/57 (68) 92 BiPAP 09/04/16 07:15 83 36 92 BiPAP/CPAP 60 09/04/16 07:15 83 92 60 09/04/16 05:01 86 94 60 09/04/16 05:00 89 28 94 BiPAP/CPAP 60 09/04/16 04:40 36.4 98 18 101/67 (78) 73 5.0 09/04/16 04:00 Nasal Cannula 6.0 09/04/16 03:00 88 18 94 Nasal Cannula 6.0 09/03/16 23:59 Nasal Cannula 5.0 09/03/16 23:32 36.8 93 18 114/73 (87) 90 5.0 Lab Results (24Hrs) Laboratory Tests (24 Hours) Test 09/04/16 02:55 White Blood Count 22.05 K/uL (4.8-10.8) H Micro Results Date/Time Source Procedure Growth Status 09/03/16 00:00 Sputum Expectorated Sputum Gram Stain - Final Complete 09/03/16 00:00 Sputum Expectorated Sputum Sputum Culture - Final Complete Risk Factors for Resistance Unknown at this time Assessment & Plan Pt is a 76yo M being empirically treated for multifocal PNA w/ Vanco, Zithromax , Unasyn. Pseudomonas not currently covered. Per medicine notes, acute hypoxic respiratory failure with leukocytosis worsening. Currently he is afebrile. Pt suffers from CKD-IV, current pt population p'kinetics: t1/2=32hrs, ke=0.0218, Vd =0.7. If he fails to improve broadening coverage to include pseudomonas may be warranted. Sputum and MRSA nasal swab have not yet resulted. Vanco: * Received Vanco 1750mg (20mg/kg) @0117 which achieved a peak of about 29mcg/ mL. I ordered a random lvl that was 22.6mcg/mL which resulted at 0832. Based on this data he may be eliminating Vanco faster than his p'kinetics may suggest. I will order a Vanco of 500mg x1 (~6mg/kg) at 1600 today to ensure he remains therapeutic * Random lvl ordered 09/05/16 @ 0444, goal trough 15-20mcg/mL * I have ordered a MRSA nasal swab Unasy & Azithromycin: * Dosed correctly based on current renal fxn Pharmacy will continue to follow and will adjust dose/frequency as necessary. Thank you.
[2016-09-04] MEDS: SODIUM BICARBONATE 650 MG TAB PO SCH ×2 (12:03→20:30)
[2016-09-04] MEDS: METOPROLOL SUCC 25MG EXT REL TAB PO SCH ×2 (12:08→20:31)
--- NOTE | 2016-09-04 13:36 | Cardiology Consultation ---
Cardiology Consultation Date of Consultation: Sep 04, 2016. Requesting Physician: Dr. Wooten Attending Physician: Dr. Wooten Reason for Consultation: NSTEMI Pt evaluation today including: conversation w/ patient, conversation w/ family , physical exam, chart review, lab review, review of studies, review of inpatient medication list, conversation w/ attending History of Present Illness Mr. Gardner is a very pleasant 76-year-old gentleman with a history significant for AAA status post repair x2, right carotid end arterectomy, advanced chronic kidney disease with left upper extremity AV fistula in place, left lower extremity DVT following AAA repair, dyslipidemia, and hypertension. He was admitted to [facility] on 09/03/2016 with acute hypoxia and hemoptysis. The night prior to presentation, he had acute shortness of breath/PND while sleeping. He had coughing episodes with white sputum and some streaks of blood. He had no chest pain, syncope, near-syncope, palpitations, or edema. His oxygen saturation was reported to be in the mid 80s on room air upon presentation and he was found to be tachycardic. He has been having intermittent nausea as well. Throughout his hospitalization he has had imaging of his chest and there is concern for multi focal pneumonia. He is on antibiotic therapy. He has also been given furosemide 40 mg IV x 2 this morning for a total dose of 80 mg. He continues to be on BiPAP due to hypoxia. His oxygen saturation this morning with documented as 73% while on 5 L via nasal cannula. Chest x-ray has been interpreted by Radiology as noted below. He denies melena, hematochezia, or hematuria. He has not exercised much since undergoing his most recent AAA repair, which apparently had complications resulting in chronic kidney disease. He is able to perform his daily activities however without exertional chest discomfort or shortness of breath. Review of systems: As above review of systems otherwise negative/unremarkable. Past Medical/Surgical History 1. Chronic kidney disease 2. AAA repair x2 3. Hypertension 4. Dyslipidemia 5. Right carotid endarterectomy/carotid artery stenosis 6. Colon cancer status post partial colectomy in 1995. 7. BPH 8. Dubose's esophagus 9. Left lower extremity DVT following AAA repair 10. Left upper extremity AV fistula 11. Reported cardiac arrest following AAA repair Family History No known premature CAD. Social History Smoking Status: Former Smoker History of Alcohol Use: No Quit smoking in 2013. No alcohol. He lives alone. His daughter, Gemma, accompanies him at the bedside. He has no other children. He has 4 grandchildren. 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 Allergies Coded Allergies: Hydrochlorothiazide (Verified Allergy, Unknown, PT. DOESN'T REMEMBER REACTION, 09/03/16) Aspirin (Verified Adverse Reaction, Intermediate, LARGE DOSES ASPIRIN- BLEEDING AND ABDOMINAL IRRITATION, 09/03/16) CAN TAKE 81 MG. ASPIRIN Q2D Paroxetine (Verified Adverse Reaction, Mild, UPSET STOMACH, 09/03/16) Sertraline (Verified Adverse Reaction, Mild, UPSET STOMACH, 09/03/16) Clopidogrel (Verified Adverse Reaction, Unknown, UPSET STOMACH, 09/03/16) Medications Current Inpatient Medications Medications (Trade) Dose Ordered Sig/Edilson Route Start Time Stop Time Status Last Admin Dose Admin Felodipine (Plendil Tabcr) 2.5 mg QAM PO 09/04/16 09:00 10/04/16 08:59 Metoprolol Succinate (Toprol Xl Tab) 75 mg BID PO 09/03/16 21:00 10/03/16 20:59 09/04/16 12:08 75 MG Pantoprazole Sodium (Protonix Tab) 40 mg QAM PO 09/04/16 09:00 10/04/16 08:59 09/04/16 07:46 40 MG Simvastatin (Zocor Tab) 60 mg QPM PO 09/03/16 21:00 10/03/16 20:59 09/03/16 21:26 60 MG Ascorbic Acid (Vitamin C Tab) 250 mg QAM PO 09/04/16 09:00 10/04/16 08:59 09/04/16 07:46 250 MG Acetaminophen (Tylenol Tab) 650 mg Q4H PRN PO 09/03/16 11:30 10/03/16 11:29 Al Hydrox/Mg Hydrox/Simethicone (Maalox Max Susp) 15 ml Q4H PRN PO 09/03/16 11:30 10/03/16 11:29 Magnesium Hydroxide (Milk Of Magnesia Susp) 30 ml Q12H PRN PO 09/03/16 11:30 10/03/16 11:29 Zolpidem Tartrate (Ambien Tab) 5 mg HSZ PRN PO 09/03/16 11:30 10/03/16 11:29 09/04/16 02:18 5 MG Ondansetron HCl (Zofran Inj) 4 mg Q6H PRN IV 09/03/16 11:30 10/03/16 11:29 09/04/16 00:47 4 MG Nitroglycerin (Nitrostat Tab) 0.4 mg UD PRN SL 09/03/16 11:30 10/03/16 11:29 Morphine Sulfate (MoRPHine SULFATE INJ) 2 mg Q30M PRN IV 09/03/16 11:30 09/17/16 11:29 09/04/16 05:18 2 MG Polyethylene (Miralax Powder Packet) 17 gm DAILY PRN PO 09/03/16 11:30 10/03/16 11:29 Albuterol/ Ipratropium (Duoneb) 3 ml Q6R INH 09/03/16 15:00 10/03/16 14:59 09/04/16 07:15 3 ML Ampicillin Sodium/ Sulbactam Sodium 3000 mg/Sodium Chloride 108 ml @ 200 mls/hr Q12@0400,1600 IV 09/03/16 16:00 09/10/16 15:59 09/04/16 05:17 200 MLS/HR Azithromycin 500 mg/Dextrose 255 ml @ 125 mls/hr DAILY@1600 IV 09/03/16 16:00 09/10/16 15:59 09/03/16 16:00 125 MLS/HR Albuterol Sulfate (Ventolin 0.083% 2.5MG/3ML Neb) 2.5 mg Q4H PRN INH 09/03/16 14:30 10/03/16 14:29 09/04/16 05:00 2.5 MG Ampicillin Sodium/ Sulbactam Sodium (Consult) 1 ea UD PRN N/A 09/03/16 15:15 10/03/16 15:14 Miscellaneous Information 1 ea UD PRN N/A 09/03/16 15:15 10/03/16 15:14 Methylprednisolone Sodium Succinate 60 mg/Syringe 0.96 ml @ 1.5 mls/min Q6H IV 09/04/16 00:30 10/04/16 00:29 09/04/16 12:09 1.5 MLS/MIN Vancomycin HCl (Consult) 1 ea UD PRN N/A 09/04/16 00:45 10/04/16 00:44 Benzonatate (Tessalon Perles Cap) 100 mg TID PO 09/04/16 09:00 10/04/16 08:59 09/04/16 07:44 100 MG Sodium Bicarbonate (Sodium Bicarbonate Tab) 650 mg BID PO 09/04/16 09:00 10/04/16 08:59 Vancomycin HCl 500 mg/Sodium Chloride 260 ml @ 125 mls/hr TODAY@1600 ONCE IV 09/04/16 16:00 09/04/16 18:04 Physical Exam Vital Signs Past 12 Hours Date Time Temp Pulse Resp B/P (MAP) Pulse Ox O2 Delivery O2 Flow Rate FiO2 09/04/16 11:27 36.7 84 22 106/71 (83) 93 BiPAP 09/04/16 07:40 BiPAP 60 09/04/16 07:24 36.5 85 18 91/57 (68) 92 BiPAP 09/04/16 07:15 83 36 92 BiPAP/CPAP 60 09/04/16 07:15 83 92 60 09/04/16 05:01 86 94 60 09/04/16 05:00 89 28 94 BiPAP/CPAP 60 09/04/16 04:40 36.4 98 18 101/67 (78) 73 5.0 09/04/16 04:00 Nasal Cannula 6.0 09/04/16 03:00 88 18 94 Nasal Cannula 6.0 Gen.: No acute distress. Alert and oriented. He is currently on BiPAP. HEENT: Anicteric sclera. Neck: No appreciable JVD. No bruits. Normal carotid upstrokes bilaterally. Cardiac: PMI was nonpalpable. No ventricular heave. Regular. Normal S1-S2. No murmurs, rubs, or gallops. Pulmonary: Coarse breath sounds bilaterally. Decreased breath sounds bilaterally. Abdomen: Soft, nontender, nondistended, with normoactive bowel sounds. No bruits noted. Extremities: 2+ radial pulses bilaterally. 2+ posterior tibialis pulses bilaterally. No pitting edema or cyanosis. Psychiatric: Affect appears appropriate. Data Laboratory Results: Last 24 Hours Test 09/03/16 14:50 09/03/16 20:04 09/04/16 02:55 09/04/16 08:32 Troponin I 4.190 ng/ml 15.800 ng/ml Sodium Level 141 mmol/L 140 mmol/L Potassium Level 5.4 mmol/L 5.7 mmol/L Chloride Level 114 mmol/L 115 mmol/L Carbon Dioxide Level 14 mmol/L 15 mmol/L Anion Gap 13.0 mmol/L 10.0 mmol/L Blood Urea Nitrogen 47 mg/dl 52 mg/dl Creatinine 3.40 mg/dl 3.40 mg/dl Est Creatinine Clear Calc Drug Dose 20.9 ml/min 20.9 ml/min Estimated GFR () 19.2 19.2 Estimated GFR (Non- 16.6 16.6 BUN/Creatinine Ratio 13.7 15.4 Random Glucose 168 mg/dl 149 mg/dl Calcium Level 8.9 mg/dl 8.4 mg/dl White Blood Count 22.05 K/uL Red Blood Count 4.52 M/uL Hemoglobin 14.7 g/dL Hematocrit 43.6 % Mean Corpuscular Volume 96.5 fL Mean Corpuscular Hemoglobin 32.5 pg Mean Corpuscular Hemoglobin Concent 33.7 g/dl RDW Standard Deviation 49.5 fL RDW Coefficient of Variation 14.1 % Platelet Count 120 K/uL Mean Platelet Volume 11.8 fL Nucleated RBC Absolute Count (auto) 0.02 K/uL Nucleated Red Blood Cells % 0.1 % Phosphorus Level 3.7 mg/dl Magnesium Level 1.9 mg/dl Random Vancomycin Level 22.6 mcg/ml ECGs personally reviewed. ECG 09/03/2016 at 10:05 a.m.: Possible atrial flutter but now the telemetry has been personally reviewed, rhythm appears to have been sinus tachycardia with first-degree AV block. RBBB. Anterior ST/T-wave abnormality. Inferior ST /T-wave abnormality. ECG 09/03/2016 at 10:10 a.m.: Sinus rhythm 98 bpm. RBBB. T-wave inversion anterior leads. ST/T-wave abnormality in inferior leads. ECG 09/03/2016 at 7:28 p.m.: Sinus rhythm with first-degree AV block. Improvement in inferior and anterior ST/T-wave abnormalities. RBBB. ECG 09/04/2016 at 9:35 a.m.: Sinus rhythm with first-degree AV block. RBBB. Anterolateral T-wave abnormality. Echo 09/03/2016: 1. Normal left ventricular size with moderately reduced systolic function. EF 35-40%. Global hypokinesis. No left ventricular hypertrophy. 2. The left atrium is mildly dilated. 3. There is mild mitral regurgitation. 4. Patient was tachycardic with heart rate mostly in the 120s to 130s throughout the study. 5. Mildly elevated right ventricular systolic pressure; 40 mmHg. 6. No prior study available for comparison. Telemetry personally reviewed. Sinus rhythm. Heart rate was tachycardic and then slowly trended downward. CT scan chest 09/03/2016: Multi focal pneumonia superimposed on diffuse emphysema per Radiology. Bilateral small parapneumonic effusions. V/Q scan 09/03/2016: Markedly heterogeneous ventilation and perfusion. Findings are indeterminate for PE. Chest x-ray 09/03/2016 personally reviewed: Diffuse bilateral airspace opacities. Radiology has interpreted this as possible pneumonia, pulmonary edema, ARDS, and/or pulmonary hemorrhage. Small pleural effusions. Advanced emphysema. Assessment & Plan 1. Non ST-elevation myocardial infarction: He did not present with acute coronary syndrome and has not had any angina. He has significant pulmonary findings on imaging. He is being treated for pneumonia. Radiology is also discuss potential ARDS. We discussed elevated troponins. This may be due to underlying coronary artery disease in the setting of hypoxia and acute illness and therefore could be demand ischemia rather than ruptured plaque. His ST abnormalities have improved significantly since presentation. We discussed treatment strategies. He does not wish to undergo coronary angiography due to the fact that he would be high risk for requiring hemodialysis given his baseline renal insufficiency. Risks and benefits were discussed with him. He prefers medical therapy. Continue beta-minoo therapy. Recommend aspirin 81 mg daily. He states that he will take aspirin every other day due to the fact that it has caused gastrointestinal issues in the past. Recommend Plavix, however he states that he is intolerant to Plavix due to GI issues. Continue statin therapy. 2. Cardiomyopathy: Could be due to acute illness versus ischemic, or potentially other etiology. No ischemic evaluation as noted above per patient wishes. Also, he is quite ill and would not recommend cardiac catheterization in his current situation unless it is urgent. There is no urgent indication for cardiac catheterization at this time. Continue beta-minoo. He is on metoprolol succinate at home. No BELKIS-inhibitor at this time due to his renal function. Will repeat echocardiogram likely as an outpatient. 3. Mild pulmonary hypertension: RVSP was mildly elevated on echocardiogram. This could be secondary to emphysema described by Radiology with the acute pulmonary issues as noted above. This can be monitored over time with echocardiogram. 4. Hypertension: Blood pressure acceptable. 5. Hypoxia: He does not appear significantly hypervolemic. Likely due to pulmonary issues. As per primary service. 6. Disposition: I will be referred hospital for the next [address] Plaza be available for any questions or concerns. Plan of care has been discussed with Dr. Wooten of the primary service. Thank you for allowing me to participate in the care of your patient. Please call for any other questions or concerns. Sincerely, Thai Clemons M.D.
[2016-09-04 14:57] LABS: BUN/CREATININE RATIO 16.5 (10-20); CALCIUM 8.2 mg/dl (8.5-10.1); POTASSIUM 5.6 mmol/L (3.5-5.1)
--- NOTE | 2016-09-04 15:00 | Pulmonary Consultation ---
History General Date of Service: Sep 04, 2016. Stated Complaint: Chf, Hemoptysis HPI The patient is a 76 year old male who presents to [facility] with complaints of Chf, Hemoptysis. The patient's primary care provider is Davis Kendall M.D.. Mr. Gardner is 76-year-old man with past medical history hypertension, dyslipidemia , chronic kidney disease with AV fistula , left lower extremity DVT, AAA status post repair 2, right carotid endarterectomy presented to [facility] on 09/03/2016 with complaints of acute shortness of breath that awakened him from sleeping. He states that he has had cough and was associated blood- streaked sputum. He is unable to quantify the amount. He denies any fever, chills, chest pain, palpitation, lower extremity swelling or edema. He denies any weight loss, night sweats, decreased appetite. He denies any sick contacts or recent travel. On initial presentation, his pulse oximetry was 88% on room air which improved to 94% on 2 L. Initial workup in the ER showed diffuse bilateral airspace disease, some emphysematous changes as well as small pleural effusion. A CT chest without contrast that showed multifocal pneumonia with superimposed diffuse emphysema, with small bilateral parapneumonic effusions. A V/Q scan was done which was indeterminate for PE. His laboratory data was significant for troponin of 4.19 which is trended higher to 15.8, carbon dioxide level of 14, BUN of 47, creatinine of 3.4. Today s white count is significant for leukocytosis of 22. He is currently being treated for an NSTEMI, acute hypoxic respiratory failure and multifocal pneumonia. He is currently on vancomycin, Unasyn and azithromycin as well as albuterol and ipratropium nebulizations. He was started this morning on BIPAP after episode of desaturation to the 70's. Cardiology and nephrology have been consulted. Review of Systems Constitutional: reports: as stated in HPI Eyes: reports: as stated in HPI ENT: reports: as stated in HPI Cardiovascular: reports: as stated in HPI Respiratory: reports: as stated in HPI, cough, shortness of breath, sputum production, hemoptysis, denies: orthopnea, wheezing Gastrointestinal: reports: nausea Musculoskeletal: reports: no symptoms Integumentary: reports: no symptoms Neurologic: reports: no symptoms Psychiatric: reports: no symptoms Endocrine: no symptoms Hematologic / Lymphatic: no symptoms Allergic / Immunologic: no symptoms All Other Symptoms All Other Systems: Reviewed and Negative Past Medical History Past Medical History: Hypertension Dyslipidemia BPH CKD Stage IV with AV fistula Colon cancer status post partial colectomy, 1995 AAA repair 2 Carotid artery stenosis status post Right carotid endarterectomy Barretts esophagus Lower extremity DVT Cardiac arrest Social History Hx Tobacco Use In Past Year?: Yes (SMOKED QUIT 07/2013) Smoking Status: Former Smoker Alcohol: no current use Drug Use: none Marital status: Occupational Status: retired Immunizations History of Influenza Vaccine: No History of Tetanus Vaccine?: No History of Pneumococcal: No History of Hepatitis B Vaccine: No History of MDRO History of MDRO: No Allergies Coded Allergies: Hydrochlorothiazide (Verified Allergy, Unknown, PT. DOESN'T REMEMBER REACTION, 09/03/16) Aspirin (Verified Adverse Reaction, Intermediate, LARGE DOSES ASPIRIN- BLEEDING AND ABDOMINAL IRRITATION, 09/03/16) CAN TAKE 81 MG. ASPIRIN Q2D Paroxetine (Verified Adverse Reaction, Mild, UPSET STOMACH, 09/03/16) Sertraline (Verified Adverse Reaction, Mild, UPSET STOMACH, 09/03/16) Clopidogrel (Verified Adverse Reaction, Unknown, UPSET STOMACH, 09/03/16) Current Medications Reported Home Medications Medications Dose Route/Sig Max Daily Dose Days Date Category Cyanocobalamin 1,000 Mcg/Ml Inj 1 Ml INJ Q4WK 09/03/16 Reported Vitamin D 82932 Unit (Ergocalciferol) 50,000 Unit Cap 50,000 Unit PO Q4WK 09/03/16 Reported Protonix (Pantoprazole Sodium) 40 Mg Tab 40 Mg PO QAM 09/20/14 Reported Vitamin C (Ascorbic Acid) 100 Mg Tab 100 Mg PO QAM 10/03/13 Reported Zocor (Simvastatin) 40 Mg Tab 60 Mg PO QPM 10/03/13 Reported Toprol-Xl (Metoprolol Succinate) 50 Mg Tabcr 75 Mg PO BID 10/03/13 Reported Felodipine ER (Felodipine) 5 Mg Tabcr 2.5 Mg PO QAM 10/03/13 Reported Physical Physical Exam Vital Signs: Date Time Temp Pulse Resp B/P (MAP) Pulse Ox O2 Delivery O2 Flow Rate FiO2 09/04/16 14:24 84 97 60 09/04/16 14:24 84 26 97 BiPAP/CPAP 60 09/04/16 12:15 90 Oxymask 10.0 09/04/16 11:27 36.7 84 22 106/71 (83) 93 BiPAP 09/04/16 07:40 BiPAP 60 09/04/16 07:24 36.5 85 18 91/57 (68) 92 BiPAP 09/04/16 07:15 83 36 92 BiPAP/CPAP 60 09/04/16 07:15 83 92 60 09/04/16 05:01 86 94 60 09/04/16 05:00 89 28 94 BiPAP/CPAP 60 09/04/16 04:40 36.4 98 18 101/67 (78) 73 5.0 09/04/16 04:00 Nasal Cannula 6.0 09/04/16 03:00 88 18 94 Nasal Cannula 6.0 09/03/16 23:59 Nasal Cannula 5.0 09/03/16 23:32 36.8 93 18 114/73 (87) 90 5.0 09/03/16 20:00 Nasal Cannula 6.0 09/03/16 19:05 86 18 94 Nasal Cannula 6.0 09/03/16 18:58 36.6 96 22 111/71 (84) 92 Nasal Cannula 5.0 09/03/16 16:00 91 Nasal Cannula 2.0 09/03/16 15:04 36.8 114 20 137/81 (99) 91 Nasal Cannula 2.0 General Appearance: moderate distress Head: NORMOCEPHALIC, ATRAUMATIC Eyes: PERRLA, SCLERAE NORMAL, CONJUNCTIVAE NORMAL ENT: other (the patient is currently on BiPAP) Neck: NORMAL RANGE OF MOTION, NO TENDERNESS, SUPPLE Respiratory: accessory muscle use, respiratory distress, rhonchi Cardiovasular: REGULAR RATE/RHYTHM, NORMAL S1S2 Abdomen: NON TENDER, NORMAL BOWEL SOUNDS Lower Extremities: NO EDEMA Neuro: ALERT, ORIENTED x 3 Psychiatric: NORMAL AFFECT, NO SUICIDAL IDEATION Diagnostics Labs Results Past 24 Hours Test 09/03/16 14:50 09/03/16 20:04 09/04/16 02:55 09/04/16 08:32 Range/Units Troponin I 4.190 15.800 0-0.045 ng/ml Sodium Level 141 140 136-145 mmol/L Potassium Level 5.4 5.7 3.5-5.1 mmol/L Chloride Level 114 115 98-107 mmol/L Carbon Dioxide Level 14 15 21-32 mmol/L Anion Gap 13.0 10.0 3-11 mmol/L Blood Urea Nitrogen 47 52 7-18 mg/dl Creatinine 3.40 3.40 0.60-1.40 mg/dl Est Creatinine Clear Calc Drug Dose 20.9 20.9 ml/min Estimated GFR () 19.2 19.2 Estimated GFR (Non- 16.6 16.6 BUN/Creatinine Ratio 13.7 15.4 10-20 Random Glucose 168 149 70-99 mg/dl Calcium Level 8.9 8.4 8.5-10.1 mg/dl White Blood Count 22.05 4.8-10.8 K/uL Red Blood Count 4.52 4.7-6.1 M/uL Hemoglobin 14.7 14.0-18.0 g/dL Hematocrit 43.6 42-52 % Mean Corpuscular Volume 96.5 80-100 fL Mean Corpuscular Hemoglobin 32.5 25-34 pg Mean Corpuscular Hemoglobin Concent 33.7 32-36 g/dl RDW Standard Deviation 49.5 36.4-46.3 fL RDW Coefficient of Variation 14.1 11.5-14.5 % Platelet Count 120 130-400 K/uL Mean Platelet Volume 11.8 7.4-10.4 fL Nucleated RBC Absolute Count (auto) 0.02 0-0 K/uL Nucleated Red Blood Cells % 0.1 % Phosphorus Level 3.7 2.5-4.9 mg/dl Magnesium Level 1.9 1.8-2.4 mg/dl Random Vancomycin Level 22.6 mcg/ml Test 09/04/16 13:56 Range/Units Microbiology Results 09/04/16 MRSA DNA Surveillance Screen - Final, Complete Specimen Negative for MRSA by DNA Probe Diagnostic Radiology CT scan chest 09/03/2016: Multi focal pneumonia superimposed on diffuse emphysema per Radiology. Bilateral small parapneumonic effusions. V/Q scan 09/03/2016: Markedly heterogeneous ventilation and perfusion. Findings are indeterminate for PE. Chest x-ray 09/03/2016: Advanced emphysema. Diffuse bilateral airspace opacity, right greater than left. This could represent pneumonia, pulmonary edema, ARDS, and/or pulmonary hemorrhage. Clinical correlation will be required. Small pleural effusions. Echo 09/03/2016: 1. Normal left ventricular size with moderately reduced systolic function. EF 35-40%. Global hypokinesis. No left ventricular hypertrophy. 2. The left atrium is mildly dilated. 3. There is mild mitral regurgitation. 4. Patient was tachycardic with heart rate mostly in the 120s to 130s throughout the study. 5. Mildly elevated right ventricular systolic pressure; 40 mmHg. 6. No prior study available for comparison. Impression Assessment and Plan Hypoxic respiratory failure Multifocal pneumonia Hemoptysis NSTEMI CKD stage IV Patient has acute hypoxic respiratory failure that is most likely multifactorial in nature. He is a former smoker with imaging suggestive of emphysema as well as multifocal pneumonia. Continue with oxygenation to keep an SaO2 between 88-92%, the PaO2 greater than 60. I agree with BiPAP at this time as it can assist with the work of breathing. He is currently on on pressure settings of 12 over 5. I explained to patient that if he should further decompensate he would need to be intubated for ventilatory support. He understood and agreed. I would recommend ABG, sputum culture, urine Legionella antigen, serum mycoplasma antibody, and pneumococcal urine antigen. I agree with empiric antibiotics of vancomycin, azithromycin and Unasyn, to cover for gram negatives, atypicals, and gram negative /anerobes. Due to diffuse disease in degree of hypoxia I will start patient on systemic corticosteroids Solu-Medrol 40 mg every 8 hours. In terms of hemoptysis, this is most likely secondary to pneumonia and should resolve spontaneously as the infection resolves. I would repeat chest x-ray in a day or 2 to assess for interval improvement. Please continue all other management per primary physician. I appreciate the consult and will continue to follow with you. Please call me if you have any questions or concerns.
--- NOTE | 2016-09-04 15:10 | Cardiology Consultation ---
Cardiology Consultation Date of Consultation: Sep 04, 2016. Pt evaluation today including: conversation w/ patient, conversation w/ family , physical exam, chart review, lab review, review of inpatient medication list History of Present Illness This is a PGY1 Resident's note - Dr. Clemons's note is separate. Mr. Gardner is a pleasant 76 year old gentleman who was feeling generally well until the night before his presentation, when he woke up from his sleep with a sudden onset of SOB and a cough productive of white sputum that was streaked with blood. He denies chest pain, nausea, vomiting, syncope or diaphoresis at this time but states that he felt feverish. His past medical history is significant for an open AAA repair done in 2002, CKD stage 4, and an AVF was placed in his left arm in April of 2015, but has not been used yet as he was meant to begin dialysis at the end of this month. He also has HTN, HPL, right sided carotid artery stenosis, DVT in his right leg since 2008, and colon cancer necessitating a partial colectomy in 1995. He has not been as active since his AAA repair, but is able to perform his ADL' s without chest pain or SOB. He is retired and lives alone at home. Past Medical/Surgical History PMH & PSH: - HTN - HPL - AAA - repaired in 2002 - BPH - CKD stage 4 - DVT right leg since 2008 - Colon ca with partial colectomy - Right carotid artery stenosis & stent - Dubose's esophagus Social History Smoking Status: Former Smoker History of Alcohol Use: No Review of Systems Constitutional: No fever, No chills, No sweats, No weight loss Respiratory: + cough, + sputum, + shortness of breath Cardiac: No chest pain, No orthopnea, No PND, No edema Abdomen: No pain, No nausea, No vomiting, No diarrhea, No constipation, No GI bleeding All Other Systems: Reviewed and Negative Allergies Coded Allergies: Hydrochlorothiazide (Verified Allergy, Unknown, PT. DOESN'T REMEMBER REACTION, 09/03/16) Aspirin (Verified Adverse Reaction, Intermediate, LARGE DOSES ASPIRIN- BLEEDING AND ABDOMINAL IRRITATION, 09/03/16) CAN TAKE 81 MG. ASPIRIN Q2D Paroxetine (Verified Adverse Reaction, Mild, UPSET STOMACH, 09/03/16) Sertraline (Verified Adverse Reaction, Mild, UPSET STOMACH, 09/03/16) Clopidogrel (Verified Adverse Reaction, Unknown, UPSET STOMACH, 09/03/16) Medications Current Inpatient Medications Medications (Trade) Dose Ordered Sig/Edilson Route Start Time Stop Time Status Last Admin Dose Admin Felodipine (Plendil Tabcr) 2.5 mg QAM PO 09/04/16 09:00 10/04/16 08:59 Metoprolol Succinate (Toprol Xl Tab) 75 mg BID PO 09/03/16 21:00 10/03/16 20:59 09/04/16 12:08 75 MG Pantoprazole Sodium (Protonix Tab) 40 mg QAM PO 09/04/16 09:00 10/04/16 08:59 09/04/16 07:46 40 MG Simvastatin (Zocor Tab) 60 mg QPM PO 09/03/16 21:00 10/03/16 20:59 09/03/16 21:26 60 MG Ascorbic Acid (Vitamin C Tab) 250 mg QAM PO 09/04/16 09:00 10/04/16 08:59 09/04/16 07:46 250 MG Acetaminophen (Tylenol Tab) 650 mg Q4H PRN PO 09/03/16 11:30 10/03/16 11:29 Al Hydrox/Mg Hydrox/Simethicone (Maalox Max Susp) 15 ml Q4H PRN PO 09/03/16 11:30 10/03/16 11:29 Magnesium Hydroxide (Milk Of Magnesia Susp) 30 ml Q12H PRN PO 09/03/16 11:30 10/03/16 11:29 Zolpidem Tartrate (Ambien Tab) 5 mg HSZ PRN PO 09/03/16 11:30 10/03/16 11:29 09/04/16 02:18 5 MG Ondansetron HCl (Zofran Inj) 4 mg Q6H PRN IV 09/03/16 11:30 10/03/16 11:29 09/04/16 00:47 4 MG Nitroglycerin (Nitrostat Tab) 0.4 mg UD PRN SL 09/03/16 11:30 10/03/16 11:29 Morphine Sulfate (MoRPHine SULFATE INJ) 2 mg Q30M PRN IV 09/03/16 11:30 09/17/16 11:29 09/04/16 05:18 2 MG Polyethylene (Miralax Powder Packet) 17 gm DAILY PRN PO 09/03/16 11:30 10/03/16 11:29 Albuterol/ Ipratropium (Duoneb) 3 ml Q6R INH 09/03/16 15:00 10/03/16 14:59 09/04/16 07:15 3 ML Ampicillin Sodium/ Sulbactam Sodium 3000 mg/Sodium Chloride 108 ml @ 200 mls/hr Q12@0400,1600 IV 09/03/16 16:00 09/10/16 15:59 09/04/16 05:17 200 MLS/HR Azithromycin 500 mg/Dextrose 255 ml @ 125 mls/hr DAILY@1600 IV 09/03/16 16:00 09/10/16 15:59 09/03/16 16:00 125 MLS/HR Albuterol Sulfate (Ventolin 0.083% 2.5MG/3ML Neb) 2.5 mg Q4H PRN INH 09/03/16 14:30 10/03/16 14:29 09/04/16 05:00 2.5 MG Ampicillin Sodium/ Sulbactam Sodium (Consult) 1 UD PRN N/A 09/03/16 15:15 10/03/16 15:14 Miscellaneous Information 1 UD PRN N/A 09/03/16 15:15 10/03/16 15:14 Methylprednisolone Sodium Succinate 60 mg/Syringe 0.96 ml @ 1.5 mls/min Q6H IV 09/04/16 00:30 10/04/16 00:29 09/04/16 12:09 1.5 MLS/MIN Vancomycin HCl (Consult) 1 UD PRN N/A 09/04/16 00:45 10/04/16 00:44 Benzonatate (Tessalon Perles Cap) 100 mg TID PO 09/04/16 09:00 10/04/16 08:59 09/04/16 07:44 100 MG Sodium Bicarbonate (Sodium Bicarbonate Tab) 650 mg BID PO 09/04/16 09:00 10/04/16 08:59 Vancomycin HCl 500 mg/Sodium Chloride 260 ml @ 125 mls/hr TODAY@1600 ONCE IV 09/04/16 16:00 09/04/16 18:04 Aspirin (Ecotrin Tab) 81 mg Q2D@0900 PO 09/05/16 09:00 10/05/16 08:59 Physical Exam Vital Signs Past 12 Hours Date Time Temp Pulse Resp B/P (MAP) Pulse Ox O2 Delivery O2 Flow Rate FiO2 09/04/16 12:15 90 Oxymask 10.0 09/04/16 11:27 36.7 84 22 106/71 (83) 93 BiPAP 09/04/16 07:40 BiPAP 60 09/04/16 07:24 36.5 85 18 91/57 (68) 92 BiPAP 09/04/16 07:15 83 36 92 BiPAP/CPAP 60 09/04/16 07:15 83 92 60 09/04/16 05:01 86 94 60 09/04/16 05:00 89 28 94 BiPAP/CPAP 60 09/04/16 04:40 36.4 98 18 101/67 (78) 73 5.0 09/04/16 04:00 Nasal Cannula 6.0 09/04/16 03:00 88 18 94 Nasal Cannula 6.0 Head: normocephalic, atraumatic Neck: supple, trachea midline Lungs: Auscultation: no wheezing, decreased breath sounds, rales/crackles on the right Cardiovascular: Apical Impulse: not displaced Heart Auscultation: RRR, normal S1, normal S2, no murmurs, no rubs, no gallops Peripheral Pulses: Radial Pulse: normal on the right Abdomen: Bowel Sounds: normal Inspection & Palpation: soft, non-distended, no tenderness, guarding & rebound, no masses, no CVA tenderness Data Laboratory Results: Last 24 Hours Test 09/03/16 14:50 09/03/16 20:04 09/04/16 02:55 09/04/16 08:32 Troponin I 4.190 ng/ml 15.800 ng/ml Sodium Level 141 mmol/L 140 mmol/L Potassium Level 5.4 mmol/L 5.7 mmol/L Chloride Level 114 mmol/L 115 mmol/L Carbon Dioxide Level 14 mmol/L 15 mmol/L Anion Gap 13.0 mmol/L 10.0 mmol/L Blood Urea Nitrogen 47 mg/dl 52 mg/dl Creatinine 3.40 mg/dl 3.40 mg/dl Est Creatinine Clear Calc Drug Dose 20.9 ml/min 20.9 ml/min Estimated GFR () 19.2 19.2 Estimated GFR (Non- 16.6 16.6 BUN/Creatinine Ratio 13.7 15.4 Random Glucose 168 mg/dl 149 mg/dl Calcium Level 8.9 mg/dl 8.4 mg/dl White Blood Count 22.05 K/uL Red Blood Count 4.52 M/uL Hemoglobin 14.7 g/dL Hematocrit 43.6 % Mean Corpuscular Volume 96.5 fL Mean Corpuscular Hemoglobin 32.5 pg Mean Corpuscular Hemoglobin Concent 33.7 g/dl RDW Standard Deviation 49.5 fL RDW Coefficient of Variation 14.1 % Platelet Count 120 K/uL Mean Platelet Volume 11.8 fL Nucleated RBC Absolute Count (auto) 0.02 K/uL Nucleated Red Blood Cells % 0.1 % Phosphorus Level 3.7 mg/dl Magnesium Level 1.9 mg/dl Random Vancomycin Level 22.6 mcg/ml Imaging: EKG: Telemetry reviewed: Assessment & Plan Multifocal Pneumonia with Emphysema - confirmed by CT - continue vancomycin, unasyn and zithromax - Continue BiPAP as he desaturates to 80s without it NSTEMI - Troponins elevated from 4.19 to 15.8 in the setting of T wave inversions in the lateral leads - Unsure if this is an acute NSTEMI or increased demand from acute onset of pneumonia and worsening CKD - ECHO from 09/03 showed global hypokinesis, EF 35-40% and normal LV size - Mr. Gardner would likely benefit from a cath to determine the nature and extent of his coronary artery disease, however he has CKD stage 4, and the contrast from the cath might further worsen his CKD and necessitate earlier dialysis. This was explained to Mr. Gardner and he opted for medical management instead - Continue aspirin 81mg every other day as he is unable to tolerate a higher dose due to GI upset. He is also unable to tolerate plavix as this also causes GI problems - No heparin in setting of recent hemoptysis - Continue statin CARDIOLOGY ATTENDING ADDENDUM: SEE MY NOTE UNDER SEPARATE COVER. Resident Tracking Resident Involvement: Resident Care Provided Care Provided: Adult Hospital Medicine
[2016-09-04] MEDS ORDERED: VANCOMYCIN INJ 500 MG in SODIUM CHLORIDE 0.9% 250ML 250 ML IV ONE (16:00)
[2016-09-04] MEDS: FELODIPINE 2.5 MG TABCR PO SCH (16:37)
--- NOTE | 2016-09-04 16:38 | DIAGNOSTIC IMAGING REPORT ---
VENOUS DOPPLER LW EXT BILAT HISTORY: Pain. Edema. Pain and swelling COMPARISON STUDY: None. FINDINGS: There is normal compressibility, flow, and augmentation within the bilateral lower extremity deep venous systems. IMPRESSION: No DVT within the right or left lower extremity. The above report was generated using voice recognition software. It may contain grammatical, syntax or spelling errors. Electronically signed by: Germán May M.D. 09/04/2016 4:37 PM Dictated Date/Time: 09/04/2016 4:37 PM
[2016-09-04] MEDS: AZITHROMYCIN IV 500 MG in DEXTROSE 5% 250ML 250 ML IV SCH (16:40)
[2016-09-04 20:12] LABS: ARTERIAL BLD GAS O2 SATURATION 89.4 % (90-95); ARTERIAL BLOOD GAS BASE EXCESS -11.7 mEq/L (-9-1.8); ARTERIAL BLOOD GAS HCO3 14 mmol/L (19-24); ARTERIAL BLOOD GAS PO2 61 mm/Hg (80-95); ARTERIAL BLOOD GAS pH 7.29 (7.35-7.45)
[2016-09-04 20:15] LABS: ALLEN TEST POS (POS); O2 ADMINISTRATION 8 LITERS
[2016-09-04] MEDS: SIMVASTATIN 20 MG TAB PO SCH (20:30)
[2016-09-04] MEDS: METHYLPREDNISOLONE IV 40 MG in SYRINGE 0 ML IV SCH (23:48)
[2016-09-05] VITALS (14 sets, daily range): BP systolic 98–114; BP diastolic 65–74; PULSE 84–118; TEMP 36.4–36.7; O2SAT 89–98
[2016-09-05] MEDS: ALBUT/IPRATROP 3MG/0.5MG NEB 3 ML VIAL INH SCH ×4 (01:39→19:07)
[2016-09-05] MEDS: AMPICILLIN/SULBACTAM SOD INJ 3,000 MG in SODIUM CHLORIDE 0.9% 100ML 100 ML IV SCH ×2 (03:29→16:43)
[2016-09-05] MEDS ORDERED: METOPROLOL TARTRATE 25 MG TAB PO STA (04:08)
[2016-09-05 05:04] LABS: BUN/CREATININE RATIO 16.2 (10-20); CALCIUM 8.1 mg/dl (8.5-10.1); CREATININE 4.6 mg/dl (0.60-1.40); POTASSIUM 4.6 mmol/L (3.5-5.1)
[2016-09-05 05:12] LABS: HEMATOCRIT 38.5 % (42-52); MEAN CELL VOLUME 95.8 fL (80-100); MEAN CORPUSCULAR HEMOGLOBIN 31.1 pg (25-34); MEAN CORPUSCULAR HGB CONC 32.5 g/dl (32-36); PLATELET COUNT 94 K/uL (130-400); PLT ESTIMATE DECREASED; RED BLOOD COUNT 4.02 M/uL (4.7-6.1); WHITE BLOOD COUNT 20.18 K/uL (4.8-10.8)
[2016-09-05] MEDS: ONDANSETRON INJ 2 MG/ML 2 ML VIAL IV PRN (06:35)
[2016-09-05] MEDS: PANTOprazole SOD 40 MG TAB PO SCH (07:46)
[2016-09-05] MEDS: METOPROLOL SUCC 25MG EXT REL TAB PO SCH (07:46)
[2016-09-05] MEDS: METHYLPREDNISOLONE IV 40 MG in SYRINGE 0 ML IV SCH ×2 (07:46→16:43)
[2016-09-05] MEDS: ASCORBIC ACID 500 MG TAB PO SCH (07:47)
[2016-09-05] MEDS: BENZONATATE 100MG CAP PO SCH ×3 (07:48→20:13)
[2016-09-05] MEDS: SODIUM BICARBONATE 650 MG TAB PO SCH ×2 (07:48→20:13)
[2016-09-05] MEDS: FELODIPINE 2.5 MG TABCR PO SCH (08:44)
[2016-09-05] MEDS ORDERED: ASPIRIN 81 MG ECTAB PO SCH (09:00)
--- NOTE | 2016-09-05 09:24 | Nephrology Progress Note ---
Nephrology Progress Note Date of Service Sep 05, 2016. Chief Complaint Assess need for HD in this patient w/ advanced stage IV CKD Subjective Mr. Gardner was seen & examined in the PCU this morning. His medical plan was discussed w/ the hospitalist service this morning. Mr. Gardner reports poor oral intake. He has not been drinking fluids and c/o nausea this morning. Mr. Gardner remains dyspneic at rest. He requires O2 at 8 L / min via FM. He had two episodes of hemoptysis overnight. Review of Systems Constitutional: No fever Cardiovascular: No chest pain Respiratory: + dyspnea at rest, + hemoptysis Abdomen: + nausea, No pain Genitourinary - Male: No dysuria Extremities: No leg edema A complete review of systems was performed. Pertinent positives are noted above. All other systems are negative. Vital Signs Last 8 Hrs Date Time Temp Pulse Resp B/P (MAP) Pulse Ox O2 Delivery O2 Flow Rate FiO2 09/05/16 07:56 115 110/68 (82) 09/05/16 07:44 106 20 90 Mask 8.0 09/05/16 07:42 36.4 108 20 105/68 (80) 89 Nasal Cannula 8.0 09/05/16 04:00 Oxymask 8.0 09/05/16 03:28 36.7 118 20 112/74 (87) 90 Oxymask 8.0 09/05/16 01:39 84 20 92 Mask 8.0 Last Recorded Weight Weight (Kilograms): 82.600 Physical Exam General Appearance: + mild distress Head: normocephalic, atraumatic Eyes: PERRL, EOMI Neck: no adenopathy Respiratory/Chest: + crackles (inspiratory rales throughout all lung mercado) Cardiovascular: + tachycardia Abdomen/GI: non tender (no bowel sounds ), soft Extremities/Musculoskelatal: no calf tenderness, no pedal edema Neurologic/Psych: alert, oriented x 3 Family History Negative for CKD / ESRD Social History Marital Status: Occupation: retired . Retired. Former smoker Laboratory Results Past 24 Hours 09/05/16 04:25 09/04/16 13:56 09/05/16 04:25 Test 09/04/16 13:56 09/04/16 17:20 09/04/16 19:51 09/05/16 00:05 Anion Gap 10.0 mmol/L (3-11) Est Creatinine Clear Calc Drug Dose 17.8 ml/min Estimated GFR () 15.8 Estimated GFR (Non- 13.6 BUN/Creatinine Ratio 16.5 (10-20) Calcium Level 8.2 mg/dl (8.5-10.1) Arterial Blood pH 7.29 (7.35-7.45) Arterial Blood Partial Pressure CO2 29 mmHg (35-46) Arterial Blood Partial Pressure O2 61 mm/Hg (80-95) Arterial Blood HCO3 14 mmol/L (19-24) Arterial Blood Oxygen Saturation 89.4 % (90-95) Arterial Blood Base Excess -11.7 mEq/L (-9-1.8) Arterial Blood Gas Delivery 8 LITERS Carlos Test POS (POS) Test 09/05/16 04:25 Red Blood Count 4.02 M/uL (4.7-6.1) Mean Corpuscular Volume 95.8 fL (80-100) Mean Corpuscular Hemoglobin 31.1 pg (25-34) Mean Corpuscular Hemoglobin Concent 32.5 g/dl (32-36) RDW Standard Deviation 49.1 fL (36.4-46.3) RDW Coefficient of Variation 14.0 % (11.5-14.5) Mean Platelet Volume 12.0 fL (7.4-10.4) Platelet Estimate DECREASED Anion Gap 12.0 mmol/L (3-11) Est Creatinine Clear Calc Drug Dose 15.4 ml/min Estimated GFR () 13.3 Estimated GFR (Non- 11.5 BUN/Creatinine Ratio 16.2 (10-20) Calcium Level 8.1 mg/dl (8.5-10.1) Random Vancomycin Level 19.5 mcg/ml Date/Time Source Procedure Growth Status 09/04/16 11:45 Nasal MRSA DNA Surveillance Screen - Final Specimen Negative for MRSA by DNA Probe Complete Allergies Coded Allergies: Hydrochlorothiazide (Verified Allergy, Unknown, PT. DOESN'T REMEMBER REACTION, 09/03/16) Aspirin (Verified Adverse Reaction, Intermediate, LARGE DOSES ASPIRIN- BLEEDING AND ABDOMINAL IRRITATION, 09/03/16) CAN TAKE 81 MG. ASPIRIN Q2D Paroxetine (Verified Adverse Reaction, Mild, UPSET STOMACH, 09/03/16) Sertraline (Verified Adverse Reaction, Mild, UPSET STOMACH, 09/03/16) Clopidogrel (Verified Adverse Reaction, Unknown, UPSET STOMACH, 09/03/16) Medications Current Inpatient Medications Medications (Trade) Dose Ordered Sig/Edilson Route Start Time Stop Time Status Last Admin Dose Admin Felodipine (Plendil Tabcr) 2.5 mg QAM PO 09/04/16 09:00 10/04/16 08:59 09/05/16 08:44 2.5 MG Pantoprazole Sodium (Protonix Tab) 40 mg QAM PO 09/04/16 09:00 10/04/16 08:59 09/05/16 07:46 40 MG Simvastatin (Zocor Tab) 60 mg QPM PO 09/03/16 21:00 10/03/16 20:59 09/04/16 20:30 60 MG Ascorbic Acid (Vitamin C Tab) 250 mg QAM PO 09/04/16 09:00 10/04/16 08:59 09/05/16 07:47 250 MG Acetaminophen (Tylenol Tab) 650 mg Q4H PRN PO 09/03/16 11:30 10/03/16 11:29 Al Hydrox/Mg Hydrox/Simethicone (Maalox Max Susp) 15 ml Q4H PRN PO 09/03/16 11:30 10/03/16 11:29 Magnesium Hydroxide (Milk Of Magnesia Susp) 30 ml Q12H PRN PO 09/03/16 11:30 10/03/16 11:29 Zolpidem Tartrate (Ambien Tab) 5 mg HSZ PRN PO 09/03/16 11:30 10/03/16 11:29 09/04/16 02:18 5 MG Ondansetron HCl (Zofran Inj) 4 mg Q6H PRN IV 09/03/16 11:30 10/03/16 11:29 09/05/16 06:35 4 MG Nitroglycerin (Nitrostat Tab) 0.4 mg UD PRN SL 09/03/16 11:30 10/03/16 11:29 Morphine Sulfate (MoRPHine SULFATE INJ) 2 mg Q30M PRN IV 09/03/16 11:30 09/17/16 11:29 09/04/16 05:18 2 MG Polyethylene (Miralax Powder Packet) 17 gm DAILY PRN PO 09/03/16 11:30 10/03/16 11:29 Albuterol/ Ipratropium (Duoneb) 3 ml Q6R INH 09/03/16 15:00 10/03/16 14:59 09/05/16 07:44 3 ML Ampicillin Sodium/ Sulbactam Sodium 3000 mg/Sodium Chloride 108 ml @ 200 mls/hr Q12@0400,1600 IV 09/03/16 16:00 09/10/16 15:59 09/05/16 03:29 200 MLS/HR Azithromycin 500 mg/Dextrose 255 ml @ 125 mls/hr DAILY@1600 IV 09/03/16 16:00 09/10/16 15:59 09/04/16 16:40 125 MLS/HR Albuterol Sulfate (Ventolin 0.083% 2.5MG/3ML Neb) 2.5 mg Q4H PRN INH 09/03/16 14:30 10/03/16 14:29 09/04/16 05:00 2.5 MG Ampicillin Sodium/ Sulbactam Sodium (Consult) 1 ea UD PRN N/A 09/03/16 15:15 10/03/16 15:14 Miscellaneous Information 1 ea UD PRN N/A 09/03/16 15:15 10/03/16 15:14 Vancomycin HCl (Consult) 1 UD PRN N/A 09/04/16 00:45 10/04/16 00:44 Benzonatate (Tessalon Perles Cap) 100 mg TID PO 09/04/16 09:00 10/04/16 08:59 09/05/16 07:48 100 MG Sodium Bicarbonate (Sodium Bicarbonate Tab) 650 mg BID PO 09/04/16 09:00 10/04/16 08:59 09/05/16 07:48 650 MG Aspirin (Ecotrin Tab) 81 mg Q2D@0900 PO 09/05/16 09:00 10/05/16 08:59 09/05/16 07:47 81 MG Methylprednisolone Sodium Succinate 40 mg/Syringe 0.64 ml @ 1.5 mls/min Q8H IV 09/05/16 00:00 10/05/16 00:00 09/05/16 07:46 1.5 MLS/MIN Metoprolol Succinate (Toprol Xl Tab) 100 mg BID PO 09/05/16 21:00 10/03/16 20:59 Impression (1) Kidney disease, chronic, stage IV (GFR 15-29 ml/min) (2) Pneumonia (3) Hypoxia (4) Hemoptysis (5) Elevated troponin Mr. Gardner was admitted for evaluation of productive cough, hemoptysis and hypoxemia. Chest CT shows patchy consolidation on the R side. V/Q scan is indeterminate. Kidney function is stable w/ baseline creatinine 3.3 (EGFR 17). Metabolic acidosis is on the basis of renal insufficiency and infection. Patient appears to be euvolemic. Troponin is progressively increasing. Echocardiogram 09/03 LVEF 35 - 40% w/ global hypokinesis. PMH - CKD w/ baseline creatinine 3.3, AAA repair w/ reimplantation of L renal artery 2002, HTN, Hypercholesterolemia, PVD (s/p R CEA, AAA repair w/ reimplantation of L renal artery 2002), Colon CA s/p partial colectomy 1995, Tobacco use (quit smoking 11/05), COPD, Dubose's esophagus requiring terminal gauger PPI therapy Recommendations CHRONIC KIDNEY DISEASE: -- Kidney function has declined. Patient is clinically volume contracted. Will check FeNa and provide 1500 cc over next 24 hours. -- Electrolyte balance is acceptable. No acute indication for HD today. Will monitor. AVF checked this am and remains functional -- Will continue NaHCO3 650 mg po BID to correct metabolic acidosis -- Monitor serial PRP ID: -- Agree with empiric broad spectrum antibiotics. Recommend dosing for EGFR 17 cc/min -- Recommend follow up CXR to reassess pneumonia CV: -- No angina. Continue to monitor
--- NOTE | 2016-09-05 09:54 | DIAGNOSTIC IMAGING REPORT ---
ABDOMEN 2 VIEWS CLINICAL HISTORY: abdominal distension, constipation, pneumonia pain COMPARISON STUDY: No previous studies for comparison. FINDINGS: Extensive postoperative change throughout the abdomen and pelvis. Mild nonobstructive ileus. No significant colonic distention. Diffuse bibasilar parenchymal infiltrative change IMPRESSION: Mild nonobstructive ileus. Diffuse bibasilar parenchymal infiltrative change. The above report was generated using voice recognition software. It may contain grammatical, syntax or spelling errors. Electronically signed by: Germán May M.D. 09/05/2016 9:52 AM Dictated Date/Time: 09/05/2016 9:51 AM
[2016-09-05] MEDS: SODIUM CHLORIDE 0.9% 1000ML 1,000 ML IV SCH ×2 (10:30→22:33)
--- NOTE | 2016-09-05 13:30 | Pulmonology Progress Note ---
Pulmonary Progress Note Date of Service Sep 05, 2016. Attending Dr. Tobar Subjective Patient seen and examined today. He states that he had an awful night and didn t get much sleep. He continues to have decreased appetite and some mild midsternal chest pain. She denies abdominal pain at the current time. Overnight patient was on 10 L Oxymask , with episodes of irregular rate to 110s 120s on telemetry monitoring . He had episode of desaturation to 76 morning and was placed back on BiPAP. Objective Vital signs: Temperature 36.4C, blood pressure 112/74, pulse between 84 and 118 pulse ox 89-92% on BiPAP of 01/26, 60%. His cumulative ins and outs are 705 mL positive balance. General: He appears to be in [id number] respiratory distress. Speaking in full sentences on BiPAP. CVS: S1-S2, tachycardic Lungs: Crackles bilaterally on anterior chest. No wheezing. Abdomen soft nontender nondistended Extremities no edema cyanosis or clubbing Sputum culture from 09/05/2016normal vi Urinary Legionella antigen, mycoplasma pneumonia antibody, and pneumococcal antibodies are pending. Imaging reviewed. Venous Doppler of bilateral lower extremities 09/04/2016no DVT with a right or left lower extremities. Abdominal x-ray 09/05/2016mild nonobstructive ileus. Diffuse bibasilar parenchymal infiltrative change. Assessment & Plan Hypoxic respiratory failure Multifocal pneumonia Hemoptysis Pulmonary hypertension (most likely type II and type III) NSTEMI CKD stage IV Combined respiratory and metabolic acidosis Patient has acute hypoxic respiratory failure that is most likely multifactorial in nature. He is a former smoker with imaging suggestive of emphysema as well as multifocal pneumonia. On further questioning patient states that he had an episode of vomiting earlier in the week and this may be an aspiration pneumonia. At this point and well continue to maintain patient on BiPAP as this will help with the work of breathing. Try to maintain oxygen between an SaO2 of 88-92%. Continue with empiric antibiotics, bronchodilators and systemic steroids. We should try to keep him in a negative balance however with his worsening renal function a diuretic should not be given at this time. In terms of pulmonary hypertension seen on echo from 09/03/2016 this may be secondary to both pulmonary and cardiac etiologies and also an elevated in acute pulmonary processes. This should be reevaluated when patient is clinically stable. If he should further decompensate he should be promptly intubated. Data Medications: Current Inpatient Medications Medications (Trade) Dose Ordered Sig/Edilson Route Start Time Stop Time Status Last Admin Dose Admin Felodipine (Plendil Tabcr) 2.5 mg QAM PO 09/04/16 09:00 10/04/16 08:59 09/05/16 08:44 2.5 MG Pantoprazole Sodium (Protonix Tab) 40 mg QAM PO 09/04/16 09:00 10/04/16 08:59 09/05/16 07:46 40 MG Simvastatin (Zocor Tab) 60 mg QPM PO 09/03/16 21:00 10/03/16 20:59 09/04/16 20:30 60 MG Ascorbic Acid (Vitamin C Tab) 250 mg QAM PO 09/04/16 09:00 10/04/16 08:59 09/05/16 07:47 250 MG Acetaminophen (Tylenol Tab) 650 mg Q4H PRN PO 09/03/16 11:30 10/03/16 11:29 Al Hydrox/Mg Hydrox/Simethicone (Maalox Max Susp) 15 ml Q4H PRN PO 09/03/16 11:30 10/03/16 11:29 Magnesium Hydroxide (Milk Of Magnesia Susp) 30 ml Q12H PRN PO 09/03/16 11:30 10/03/16 11:29 Zolpidem Tartrate (Ambien Tab) 5 mg HSZ PRN PO 09/03/16 11:30 10/03/16 11:29 09/04/16 02:18 5 MG Ondansetron HCl (Zofran Inj) 4 mg Q6H PRN IV 09/03/16 11:30 10/03/16 11:29 09/05/16 06:35 4 MG Nitroglycerin (Nitrostat Tab) 0.4 mg UD PRN SL 09/03/16 11:30 10/03/16 11:29 Morphine Sulfate (MoRPHine SULFATE INJ) 2 mg Q30M PRN IV 09/03/16 11:30 09/17/16 11:29 09/04/16 05:18 2 MG Polyethylene (Miralax Powder Packet) 17 gm DAILY PRN PO 09/03/16 11:30 10/03/16 11:29 Albuterol/ Ipratropium (Duoneb) 3 ml Q6R INH 09/03/16 15:00 10/03/16 14:59 09/05/16 07:44 3 ML Ampicillin Sodium/ Sulbactam Sodium 3000 mg/Sodium Chloride 108 ml @ 200 mls/hr Q12@0400,1600 IV 09/03/16 16:00 09/10/16 15:59 09/05/16 03:29 200 MLS/HR Azithromycin 500 mg/Dextrose 255 ml @ 125 mls/hr DAILY@1600 IV 09/03/16 16:00 09/10/16 15:59 09/04/16 16:40 125 MLS/HR Albuterol Sulfate (Ventolin 0.083% 2.5MG/3ML Neb) 2.5 mg Q4H PRN INH 09/03/16 14:30 10/03/16 14:29 09/04/16 05:00 2.5 MG Ampicillin Sodium/ Sulbactam Sodium (Consult) 1 ea UD PRN N/A 09/03/16 15:15 10/03/16 15:14 Miscellaneous Information 1 ea UD PRN N/A 09/03/16 15:15 10/03/16 15:14 Benzonatate (Tessalon Perles Cap) 100 mg TID PO 09/04/16 09:00 10/04/16 08:59 09/05/16 07:48 100 MG Sodium Bicarbonate (Sodium Bicarbonate Tab) 650 mg BID PO 09/04/16 09:00 10/04/16 08:59 09/05/16 07:48 650 MG Aspirin (Ecotrin Tab) 81 mg Q2D@0900 PO 09/05/16 09:00 10/05/16 08:59 09/05/16 07:47 81 MG Methylprednisolone Sodium Succinate 40 mg/Syringe 0.64 ml @ 1.5 mls/min Q8H IV 09/05/16 00:00 10/05/16 00:00 09/05/16 07:46 1.5 MLS/MIN Metoprolol Succinate (Toprol Xl Tab) 100 mg BID PO 09/05/16 21:00 10/03/16 20:59 Sodium Chloride 1,000 ml @ 80 mls/hr [id number] IV 09/05/16 10:30 09/06/16 05:14 09/05/16 10:30 80 MLS/HR Vital Signs: Date Time Temp Pulse Resp B/P (MAP) Pulse Ox O2 Delivery O2 Flow Rate FiO2 09/05/16 12:03 36.4 109 20 112/74 (87) 89 Nasal Cannula 8.0 09/05/16 12:00 Oxymask 8.0 09/05/16 08:00 Oxymask 8.0 09/05/16 07:56 115 110/68 (82) 09/05/16 07:44 106 20 90 Mask 8.0 09/05/16 07:42 36.4 108 20 105/68 (80) 89 Nasal Cannula 8.0 09/05/16 04:00 Oxymask 8.0 09/05/16 03:28 36.7 118 20 112/74 (87) 90 Oxymask 8.0 09/05/16 01:39 84 20 92 Mask 8.0 09/05/16 00:01 Oxymask 8.0 09/04/16 23:10 36.6 92 24 103/66 (78) 92 Oxymask 8.0 09/04/16 20:00 Oxymask 8.0 09/04/16 19:58 84 20 92 Mask 8.0 09/04/16 19:42 36.4 82 19 97/59 (72) 91 Mask 7.0 09/04/16 16:00 97 BiPAP 60 09/04/16 15:47 81 96 55 09/04/16 15:40 36.3 84 25 104/65 (78) 96 BiPAP 09/04/16 14:24 84 97 60 09/04/16 14:24 84 26 97 BiPAP/CPAP 60 Laboratory Results: Last 24 Hours Test 09/04/16 13:56 09/04/16 17:20 09/04/16 19:51 09/05/16 00:05 Sodium Level 142 mmol/L Potassium Level 5.6 mmol/L Chloride Level 115 mmol/L Carbon Dioxide Level 17 mmol/L Anion Gap 10.0 mmol/L Blood Urea Nitrogen 66 mg/dl Creatinine 4.00 mg/dl Est Creatinine Clear Calc Drug Dose 17.8 ml/min Estimated GFR () 15.8 Estimated GFR (Non- 13.6 BUN/Creatinine Ratio 16.5 Random Glucose 217 mg/dl Calcium Level 8.2 mg/dl Arterial Blood pH 7.29 Arterial Blood Partial Pressure CO2 29 mmHg Arterial Blood Partial Pressure O2 61 mm/Hg Arterial Blood HCO3 14 mmol/L Arterial Blood Oxygen Saturation 89.4 % Arterial Blood Base Excess -11.7 mEq/L Arterial Blood Gas Delivery 8 LITERS Carlos Test POS Test 09/05/16 04:25 09/05/16 10:20 White Blood Count 20.18 K/uL Red Blood Count 4.02 M/uL Hemoglobin 12.5 g/dL Hematocrit 38.5 % Mean Corpuscular Volume 95.8 fL Mean Corpuscular Hemoglobin 31.1 pg Mean Corpuscular Hemoglobin Concent 32.5 g/dl RDW Standard Deviation 49.1 fL RDW Coefficient of Variation 14.0 % Platelet Count 94 K/uL Mean Platelet Volume 12.0 fL Platelet Estimate DECREASED Sodium Level 144 mmol/L Potassium Level 4.6 mmol/L Chloride Level 113 mmol/L Carbon Dioxide Level 19 mmol/L Anion Gap 12.0 mmol/L Blood Urea Nitrogen 76 mg/dl Creatinine 4.60 mg/dl Est Creatinine Clear Calc Drug Dose 15.4 ml/min Estimated GFR () 13.3 Estimated GFR (Non- 11.5 BUN/Creatinine Ratio 16.2 Random Glucose 155 mg/dl Calcium Level 8.1 mg/dl Random Vancomycin Level 19.5 mcg/ml Urine Random Creatinine 130.0 mg/dl Urine Random Sodium 12 mEq/L
--- NOTE | 2016-09-05 15:40 | Progress Note ---
Subjective Date of Service: Sep 05, 2016. Subjective Pt evaluation today including: conversation w/ patient, conversation w/ family (daughter at the bedside), physical exam, lab review, conversation w/ jd edwards consultant , review of inpatient medication list Pain: no pain PO Intake: adequate Voiding: crawford catheter in place patient requiring BIPAP again today, however, for being hypoxic, he is not in distress, speaking in full sentences minimal cough no chest pain, no abdominal pain but he does have some bloating reviewed labs, cr going up to 4.7, K now normal at 4.6 WBC down slightly to 20 from 22 Abdomina x-ray: non obstructive ileus Problem List Medical Problems: (1) Hypoxia Status: Acute Review of Systems Constitutional: + weakness, + fatigue Respiratory: + cough, + shortness of breath, + hemoptysis Abdomen: + pain, + constipation Psychiatric: + insomnia All Other Systems: Reviewed and Negative Medications Current Inpatient Medications Medications (Trade) Dose Ordered Sig/Edilson Route Start Time Stop Time Status Last Admin Dose Admin Felodipine (Plendil Tabcr) 2.5 mg QAM PO 09/04/16 09:00 10/04/16 08:59 09/05/16 08:44 2.5 MG Pantoprazole Sodium (Protonix Tab) 40 mg QAM PO 09/04/16 09:00 10/04/16 08:59 09/05/16 07:46 40 MG Simvastatin (Zocor Tab) 60 mg QPM PO 09/03/16 21:00 10/03/16 20:59 09/04/16 20:30 60 MG Ascorbic Acid (Vitamin C Tab) 250 mg QAM PO 09/04/16 09:00 10/04/16 08:59 09/05/16 07:47 250 MG Acetaminophen (Tylenol Tab) 650 mg Q4H PRN PO 09/03/16 11:30 10/03/16 11:29 Al Hydrox/Mg Hydrox/Simethicone (Maalox Max Susp) 15 ml Q4H PRN PO 09/03/16 11:30 10/03/16 11:29 Magnesium Hydroxide (Milk Of Magnesia Susp) 30 ml Q12H PRN PO 09/03/16 11:30 10/03/16 11:29 Zolpidem Tartrate (Ambien Tab) 5 mg HSZ PRN PO 09/03/16 11:30 10/03/16 11:29 09/04/16 02:18 5 MG Ondansetron HCl (Zofran Inj) 4 mg Q6H PRN IV 09/03/16 11:30 10/03/16 11:29 09/05/16 06:35 4 MG Nitroglycerin (Nitrostat Tab) 0.4 mg UD PRN SL 09/03/16 11:30 10/03/16 11:29 Morphine Sulfate (MoRPHine SULFATE INJ) 2 mg Q30M PRN IV 09/03/16 11:30 09/17/16 11:29 09/04/16 05:18 2 MG Polyethylene (Miralax Powder Packet) 17 gm DAILY PRN PO 09/03/16 11:30 10/03/16 11:29 Albuterol/ Ipratropium (Duoneb) 3 ml Q6R INH 09/03/16 15:00 10/03/16 14:59 09/05/16 13:45 3 ML Ampicillin Sodium/ Sulbactam Sodium 3000 mg/Sodium Chloride 108 ml @ 200 mls/hr Q12@0400,1600 IV 09/03/16 16:00 09/10/16 15:59 09/05/16 03:29 200 MLS/HR Azithromycin 500 mg/Dextrose 255 ml @ 125 mls/hr DAILY@1600 IV 09/03/16 16:00 09/10/16 15:59 09/04/16 16:40 125 MLS/HR Albuterol Sulfate (Ventolin 0.083% 2.5MG/3ML Neb) 2.5 mg Q4H PRN INH 09/03/16 14:30 10/03/16 14:29 09/04/16 05:00 2.5 MG Ampicillin Sodium/ Sulbactam Sodium (Consult) 1 ea UD PRN N/A 09/03/16 15:15 10/03/16 15:14 Miscellaneous Information 1 ea UD PRN N/A 09/03/16 15:15 10/03/16 15:14 Benzonatate (Tessalon Perles Cap) 100 mg TID PO 09/04/16 09:00 10/04/16 08:59 09/05/16 07:48 100 MG Sodium Bicarbonate (Sodium Bicarbonate Tab) 650 mg BID PO 09/04/16 09:00 10/04/16 08:59 09/05/16 07:48 650 MG Aspirin (Ecotrin Tab) 81 mg Q2D@0900 PO 09/05/16 09:00 10/05/16 08:59 09/05/16 07:47 81 MG Methylprednisolone Sodium Succinate 40 mg/Syringe 0.64 ml @ 1.5 mls/min Q8H IV 09/05/16 00:00 10/05/16 00:00 09/05/16 07:46 1.5 MLS/MIN Metoprolol Succinate (Toprol Xl Tab) 100 mg BID PO 09/05/16 21:00 10/03/16 20:59 Sodium Chloride 1,000 ml @ 80 mls/hr [id number] IV 09/05/16 10:30 09/06/16 05:14 09/05/16 10:30 80 MLS/HR Objective Vital Signs Date Time Temp Pulse Resp B/P (MAP) Pulse Ox O2 Delivery O2 Flow Rate FiO2 09/05/16 13:46 95 26 94 BiPAP/CPAP 60 09/05/16 12:03 36.4 109 20 112/74 (87) 89 Nasal Cannula 8.0 09/05/16 12:00 Oxymask 8.0 09/05/16 08:00 Oxymask 8.0 09/05/16 07:56 115 110/68 (82) 09/05/16 07:44 106 20 90 Mask 8.0 09/05/16 07:42 36.4 108 20 105/68 (80) 89 Nasal Cannula 8.0 09/05/16 04:00 Oxymask 8.0 09/05/16 03:28 36.7 118 20 112/74 (87) 90 Oxymask 8.0 09/05/16 01:39 84 20 92 Mask 8.0 09/05/16 00:01 Oxymask 8.0 09/04/16 23:10 36.6 92 24 103/66 (78) 92 Oxymask 8.0 09/04/16 20:00 Oxymask 8.0 09/04/16 19:58 84 20 92 Mask 8.0 09/04/16 19:42 36.4 82 19 97/59 (72) 91 Mask 7.0 09/04/16 16:00 97 BiPAP 60 09/04/16 15:47 81 96 55 09/04/16 15:40 36.3 84 25 104/65 (04) 96 BiPAP Physical Exam General Appearance: WD/WN, no apparent distress Neck: supple, no adenopathy, no JVD, trachea midline Respiratory/Chest: chest non-tender, no respiratory distress, no accessory muscle use, + decreased breath sounds, + crackles Cardiovascular: no edema, no gallop, no JVD, no murmur, + tachycardia Abdomen: normal bowel sounds, non tender, soft, no organomegaly Extremities: normal range of motion, non-tender, normal inspection, no pedal edema, no calf tenderness Neurologic/Psychiatric: safety inspector II-XII nml as tested, no motor/sensory deficits, alert, normal mood/affect, oriented x 3 Skin: normal color, warm/dry, no rash Laboratory Results Last 24 Hours Test 09/04/16 17:20 09/04/16 19:51 09/05/16 00:05 09/05/16 04:25 Arterial Blood pH 7.29 Arterial Blood Partial Pressure CO2 29 mmHg Arterial Blood Partial Pressure O2 61 mm/Hg Arterial Blood HCO3 14 mmol/L Arterial Blood Oxygen Saturation 89.4 % Arterial Blood Base Excess -11.7 mEq/L Arterial Blood Gas Delivery 8 LITERS Carlos Test POS White Blood Count 20.18 K/uL Red Blood Count 4.02 M/uL Hemoglobin 12.5 g/dL Hematocrit 38.5 % Mean Corpuscular Volume 95.8 fL Mean Corpuscular Hemoglobin 31.1 pg Mean Corpuscular Hemoglobin Concent 32.5 g/dl RDW Standard Deviation 49.1 fL RDW Coefficient of Variation 14.0 % Platelet Count 94 K/uL Mean Platelet Volume 12.0 fL Platelet Estimate DECREASED Sodium Level 144 mmol/L Potassium Level 4.6 mmol/L Chloride Level 113 mmol/L Carbon Dioxide Level 19 mmol/L Anion Gap 12.0 mmol/L Blood Urea Nitrogen 76 mg/dl Creatinine 4.60 mg/dl Est Creatinine Clear Calc Drug Dose 15.4 ml/min Estimated GFR () 13.3 Estimated GFR (Non- 11.5 BUN/Creatinine Ratio 16.2 Random Glucose 155 mg/dl Calcium Level 8.1 mg/dl Random Vancomycin Level 19.5 mcg/ml Test 09/05/16 10:20 Urine Random Creatinine 130.0 mg/dl Urine Random Sodium 12 mEq/L Assessment and Plan 76 y/o M Hx HTN, HPL, BPH, AAA, CKD IV - patient woke up suddenly with coughing spell, no dyspnea or cough prior to going to sleep. He then had a few episodes of hemoptysis described as sputum mixed with bright red blood. On arrival to the ER he was tachycardic and hypoxic into the mid 80s. - Severe sepsis secondary to multifocal pneumonia, POA: continue Unasyn and Zithromax, stop Vanco since MRSA swab negative still afebrile, WBC down to 20 from 22, blood cultures negative consult pulmonology for recommendations going forward strong suspicion for aspiration event, on further questioning he admits that he was vomiting recently could have vomited at night with aspiration - Acute hypoxic respiratory failure: now back on BIPAP, breathing comfortably not really in distress, talking in full sentences if he deteriorates then go to ICU for intubation V/Q indeterminate, dopplers negative for DVT - NSTEMI: troponin fouzia to 15 yesterday, never had chest pain, ST depression on tele monitor echocardiogram shows EF 35-40% with global hypokinesis aspirin 81mg every other day on metoprolol and Zocor difficult situation with CKD stage IV, heart cath could potentially push him into ESRD consult cardiology for recommendations - CKD stage IV: worsening renal function, Cr up to 4.6, K now normal at 4.6 little urine output, d/w Dr. Romero, will give NSS at 80cc/hr - Ileus: follow for any vomiting, continue diet, may need NGT if he is vomiting - HTN: continue Metoprolol - Dyslipidemia: Zocor - BPH: Flomax full code DVT prophylaxis: hold on chemical prophylaxis with reported hemoptysis prognosis is guarded, move to ICU if he gets worse updated daughter at the bedside today, she is aware of prognosis
[2016-09-05] MEDS: AZITHROMYCIN IV 500 MG in DEXTROSE 5% 250ML 250 ML IV SCH (16:43)
[2016-09-05] MEDS: METOPROLOL SUCC 50MG EXT REL TAB PO SCH ×2 (20:12→22:33)
[2016-09-05] MEDS: SIMVASTATIN 20 MG TAB PO SCH (20:14)
[2016-09-05] MEDS: ZOLPIDEM TARTRATE 5 MG TAB PO PRN (21:57)
[2016-09-06] VITALS (18 sets, daily range): BP systolic 92–114; BP diastolic 60–72; PULSE 90–103; TEMP 36.4–36.9; O2SAT 84–99
[2016-09-06] MEDS: METHYLPREDNISOLONE IV 40 MG in SYRINGE 0 ML IV SCH ×4 (00:59→23:44)
[2016-09-06] MEDS ORDERED: NURSING VERBAL MED ORDER ONE (01:30)
[2016-09-06] MEDS: ALBUT/IPRATROP 3MG/0.5MG NEB 3 ML VIAL INH SCH ×4 (02:01→19:16)
[2016-09-06] MEDS: AMPICILLIN/SULBACTAM SOD INJ 3,000 MG in SODIUM CHLORIDE 0.9% 100ML 100 ML IV SCH ×2 (05:08→16:12)
[2016-09-06 07:08] LABS: HEMATOCRIT 35.1 % (42-52); MEAN CELL VOLUME 96.4 fL (80-100); MEAN CORPUSCULAR HEMOGLOBIN 32.1 pg (25-34); MEAN CORPUSCULAR HGB CONC 33.3 g/dl (32-36); PLATELET COUNT 72 K/uL (130-400); RED BLOOD COUNT 3.64 M/uL (4.7-6.1); WHITE BLOOD COUNT 13.33 K/uL (4.8-10.8)
--- NOTE | 2016-09-06 07:52 | DIAGNOSTIC IMAGING REPORT ---
CHEST ONE VIEW PORTABLE CLINICAL HISTORY: hypoxia, bilateral pneumonia dyspnea COMPARISON STUDY: 09/03/2016 FINDINGS: Similar to perhaps slightly improved diffuse bilateral parenchymal infiltrative change. Differential is as described previously. Heart remains top limits normal. No evidence pneumothorax. IMPRESSION: Unchanged to slightly improved parenchymal infiltrative/pulmonary edematous change throughout both hemithoraces. Differential is as noted previously The above report was generated using voice recognition software. It may contain grammatical, syntax or spelling errors. Electronically signed by: Germán May M.D. 09/06/2016 7:51 AM Dictated Date/Time: 09/06/2016 7:50 AM
[2016-09-06 07:53] LABS: BUN/CREATININE RATIO 18.7 (10-20); CALCIUM 8.2 mg/dl (8.5-10.1); CREATININE 5.4 mg/dl (0.60-1.40)
[2016-09-06] MEDS: BENZONATATE 100MG CAP PO SCH (09:00)
[2016-09-06] MEDS: PANTOprazole SOD 40 MG TAB PO SCH (09:00)
[2016-09-06] MEDS: ASCORBIC ACID 500 MG TAB PO SCH (09:00)
[2016-09-06] MEDS: FELODIPINE 2.5 MG TABCR PO SCH (09:00)
[2016-09-06] MEDS: SODIUM BICARBONATE 650 MG TAB PO SCH ×2 (09:00→20:48)
[2016-09-06] MEDS: METOPROLOL SUCC 50MG EXT REL TAB PO SCH ×2 (09:03→20:48)
--- NOTE | 2016-09-06 09:19 | Progress Note ---
Subjective Date of Service: Sep 06, 2016. Subjective Pt evaluation today including: conversation w/ patient, conversation w/ family (daughter Gemma over the phone), physical exam, lab review, review of studies, conversation w/ risk and insurance consultant, review of inpatient medication list Pain: denies pain PO Intake: poor Voiding: crawford catheter in place patient was able to sleep last night after he was given an Ambien however, his breathing has continued to deteriorate, requiring 60% FiO2 up from 35% yesterday, still only on 01/26 setting on BIPAP not in a great deal of distress, although HR higher today 525cc urine output all day yesterday so still above olugiric range, however, Cr trending up to 5.4 from 4.6, metabolic acidosis, K up slightly to 5.0 per RN, patient had a BM last night CXR this AM viewed by myself, bilateral diffuse interstitial changes, worsening by my read lungs with diffuse crackles, course, some accessory muscle use will transfer to the ICU as precaution in case he deteriorate further and requires intubation also, he may be working towards needing HD, certainly not emergent as he is making urine and electrolytes are acceptable but if he needs HD it can be done safely in the ICU patient's status and the plan to transfer to ICU discussed with patient's daughter Gemma over the phone this AM Problem List Medical Problems: (1) Hypoxia Status: Acute Review of Systems Constitutional: + weakness, + fatigue Respiratory: + cough, + shortness of breath Abdomen: + pain Neurologic: + weakness All Other Systems: Reviewed and Negative Medications Current Inpatient Medications Medications (Trade) Dose Ordered Sig/Edilson Route Start Time Stop Time Status Last Admin Dose Admin Felodipine (Plendil Tabcr) 2.5 mg QAM PO 09/04/16 09:00 10/04/16 08:59 09/05/16 08:44 2.5 MG Pantoprazole Sodium (Protonix Tab) 40 mg QAM PO 09/04/16 09:00 10/04/16 08:59 09/05/16 07:46 40 MG Simvastatin (Zocor Tab) 60 mg QPM PO 09/03/16 21:00 10/03/16 20:59 09/05/16 20:14 60 MG Ascorbic Acid (Vitamin C Tab) 250 mg QAM PO 09/04/16 09:00 10/04/16 08:59 09/05/16 07:47 250 MG Acetaminophen (Tylenol Tab) 650 mg Q4H PRN PO 09/03/16 11:30 10/03/16 11:29 Al Hydrox/Mg Hydrox/Simethicone (Maalox Max Susp) 15 ml Q4H PRN PO 09/03/16 11:30 10/03/16 11:29 Magnesium Hydroxide (Milk Of Magnesia Susp) 30 ml Q12H PRN PO 09/03/16 11:30 10/03/16 11:29 Ondansetron HCl (Zofran Inj) 4 mg Q6H PRN IV 09/03/16 11:30 10/03/16 11:29 09/05/16 06:35 4 MG Nitroglycerin (Nitrostat Tab) 0.4 mg UD PRN SL 09/03/16 11:30 10/03/16 11:29 Morphine Sulfate (MoRPHine SULFATE INJ) 2 mg Q30M PRN IV 09/03/16 11:30 09/17/16 11:29 09/04/16 05:18 2 MG Polyethylene (Miralax Powder Packet) 17 gm DAILY PRN PO 09/03/16 11:30 10/03/16 11:29 Albuterol/ Ipratropium (Duoneb) 3 ml Q6R INH 09/03/16 15:00 10/03/16 14:59 09/06/16 07:13 3 ML Ampicillin Sodium/ Sulbactam Sodium 3000 mg/Sodium Chloride 108 ml @ 200 mls/hr Q12@0400,1600 IV 09/03/16 16:00 09/10/16 15:59 09/06/16 05:08 200 MLS/HR Azithromycin 500 mg/Dextrose 255 ml @ 125 mls/hr DAILY@1600 IV 09/03/16 16:00 09/10/16 15:59 09/05/16 16:43 125 MLS/HR Albuterol Sulfate (Ventolin 0.083% 2.5MG/3ML Neb) 2.5 mg Q4H PRN INH 09/03/16 14:30 10/03/16 14:29 09/04/16 05:00 2.5 MG Ampicillin Sodium/ Sulbactam Sodium (Consult) 1 ea UD PRN N/A 09/03/16 15:15 10/03/16 15:14 Miscellaneous Information 1 ea UD PRN N/A 09/03/16 15:15 10/03/16 15:14 Benzonatate (Tessalon Perles Cap) 100 mg TID PO 09/04/16 09:00 10/04/16 08:59 09/05/16 20:13 100 MG Sodium Bicarbonate (Sodium Bicarbonate Tab) 650 mg BID PO 09/04/16 09:00 10/04/16 08:59 09/05/16 20:13 650 MG Aspirin (Ecotrin Tab) 81 mg Q2D@0900 PO 09/05/16 09:00 10/05/16 08:59 09/05/16 07:47 81 MG Methylprednisolone Sodium Succinate 40 mg/Syringe 0.64 ml @ 1.5 mls/min Q8H IV 09/05/16 00:00 10/05/16 00:00 09/06/16 00:59 1.5 MLS/MIN Metoprolol Succinate (Toprol Xl Tab) 100 mg BID PO 09/05/16 21:00 10/03/16 20:59 09/05/16 22:33 100 MG Objective Vital Signs Date Time Temp Pulse Resp B/P (MAP) Pulse Ox O2 Delivery O2 Flow Rate FiO2 09/06/16 07:56 36.4 103 22 101/60 (74) 92 BiPAP 09/06/16 07:13 101 20 88 BiPAP/CPAP 60 09/06/16 04:00 97 BiPAP 60 09/06/16 04:00 36.6 100 18 114/67 (83) 97 BiPAP 09/06/16 02:01 98 20 93 BiPAP/CPAP 60 09/06/16 00:00 96 BiPAP 60 09/05/16 23:40 36.5 109 22 114/71 (85) 98 BiPAP 09/05/16 22:33 104 104/66 (79) 09/05/16 22:00 110 93 55 09/05/16 20:15 91 Oxymask 15.0 09/05/16 19:29 36.4 97 20 98/65 (76) 94 Mask 15.0 09/05/16 19:07 98 20 93 Mask 15.0 09/05/16 16:00 BiPAP 60 09/05/16 15:12 36.4 92 19 103/68 (80) 95 BiPAP 09/05/16 13:46 95 26 94 BiPAP/CPAP 60 09/05/16 12:03 36.4 109 20 112/74 (87) 89 Nasal Cannula 8.0 09/05/16 12:00 Oxymask 8.0 Physical Exam General Appearance: WD/WN, no apparent distress Eyes: normal inspection, EOMI, sclerae normal ENT: normal ENT inspection, hearing grossly normal, pharynx normal Neck: supple, no adenopathy, no JVD, trachea midline Respiratory/Chest: chest non-tender, no respiratory distress, + decreased breath sounds, + accessory muscle use, + crackles Cardiovascular: no edema, no gallop, no JVD, + tachycardia, + systolic murmur Abdomen: non tender, soft, no organomegaly, + abnormal bowel sounds (hypoactive ) Extremities: normal range of motion, non-tender, normal inspection, no pedal edema, no calf tenderness Neurologic/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 Differential is as described previously. Heart remains top limits normal. No evidence pneumothorax. IMPRESSION: Unchanged to slightly improved parenchymal infiltrative/pulmonary edematous change throughout both hemithoraces. Differential is as noted previously Last 24 Hours Test 09/05/16 10:20 09/06/16 06:21 Urine Random Creatinine 130.0 mg/dl Urine Random Sodium 12 mEq/L White Blood Count 13.33 K/uL Red Blood Count 3.64 M/uL Hemoglobin 11.7 g/dL Hematocrit 35.1 % Mean Corpuscular Volume 96.4 fL Mean Corpuscular Hemoglobin 32.1 pg Mean Corpuscular Hemoglobin Concent 33.3 g/dl RDW Standard Deviation 50.6 fL RDW Coefficient of Variation 14.5 % Platelet Count 72 K/uL Mean Platelet Volume 13.0 fL Sodium Level 143 mmol/L Potassium Level 5.0 mmol/L Chloride Level 113 mmol/L Carbon Dioxide Level 18 mmol/L Anion Gap 12.0 mmol/L Blood Urea Nitrogen 101 mg/dl Creatinine 5.40 mg/dl Est Creatinine Clear Calc Drug Dose 13.1 ml/min Estimated GFR () 11.0 Estimated GFR (Non- 9.5 BUN/Creatinine Ratio 18.7 Random Glucose 153 mg/dl Calcium Level 8.2 mg/dl Assessment and Plan 76 y/o M Hx HTN, HPL, BPH, AAA, CKD IV - patient woke up suddenly with coughing spell, no dyspnea or cough prior to going to sleep. He then had a few episodes of hemoptysis described as sputum mixed with bright red blood. On arrival to the ER he was tachycardic and hypoxic into the mid 80s. - Severe sepsis secondary to multifocal pneumonia, POA: continue Unasyn and Zithromax, stopped Vanco on 09/05 since MRSA swab negative still afebrile, WBC down to 13 from 20, blood cultures all negative, will try to obtain sputum cultures if possible strong suspicion for aspiration event, on further questioning he admits that he was vomiting recently could have vomited at night with aspiration - Acute hypoxic respiratory failure, possible ARDS: placed back on BIPAP on 09/05 still not in distress but using accessory muscles, coarse breath sounds bilaterally could consider this to be ARDS, however, he does have systolic failure so the edema could be cardiogenic V/Q indeterminate, dopplers negative for DVT so doubt that this is related to a PE - NSTEMI: troponin fouzia to 15 after admission, never had chest pain, ST depression on tele monitor echocardiogram shows EF 35-40% with global hypokinesis aspirin 81mg every other day on metoprolol and Zocor difficult situation with CKD stage IV, heart cath could potentially push him into ESRD consult cardiology for recommendations, just continue to treat medically, no cath planned - CKD stage IV: worsening renal function, Cr up to 5.4 today, K trending up slightly to 5.0 but still normal range non-oliguric with UO of 525cc yesterday no emergent need for HD this AM but patient may end up needing in near future , has fistula in place Dr. Romero following closely still with metabolic acidosis - Ileus: hypoactive bowel sounds, no obstructive process on KUB yesterday per RN, patient had a BM yesterday - Systolic heart failure: EF of 35% on echo after admission, unclear if edema is cardiogenic or non-cardiogenic UO 525cc yesterday continue metoprolol - HTN: continue Metoprolol to decrease strain on heart, dose increased to 100mg - Dyslipidemia: Zocor - BPH: Flomax full code DVT prophylaxis: hold on chemical prophylaxis with reported hemoptysis GI prophylaxis: Protonix started will move to ICU today, prognosis is guarded, may get worse before he gets better
--- NOTE | 2016-09-06 09:29 | Nephrology Progress Note ---
Nephrology Progress Note Date of Service Sep 06, 2016. Chief Complaint Assess need for HD in this patient w/ advanced stage IV CKD Subjective Mr. Gardner was seen & examined in the PCU this morning. He reports that his breathing is worse this morning. He is back on BiPAP therapy. FeNa was < 1% but IVF stopped due to worsening pulmonary status. Patient will be transferred to the ICU for close respiratory monitoring. Review of Systems Constitutional: No fever Cardiovascular: No chest pain Respiratory: + dyspnea at rest, + hemoptysis Abdomen: + nausea, No pain Extremities: No leg edema A complete review of systems was performed. Pertinent positives are noted above. All other systems are negative. Vital Signs Last 8 Hrs Date Time Temp Pulse Resp B/P (MAP) Pulse Ox O2 Delivery O2 Flow Rate FiO2 09/06/16 07:56 36.4 103 22 101/60 (74) 92 BiPAP 09/06/16 07:13 101 20 88 BiPAP/CPAP 60 09/06/16 04:00 97 BiPAP 60 09/06/16 04:00 36.6 100 18 114/67 (83) 97 BiPAP 09/06/16 02:01 98 20 93 BiPAP/CPAP 60 Last Recorded Weight Weight (Kilograms): 86.600 Physical Exam General Appearance: + mild distress (requires BiPAP therapy) Head: normocephalic, atraumatic Eyes: PERRL Neck: no adenopathy Respiratory/Chest: + rales (throughout both lung mercado) Cardiovascular: + tachycardia Abdomen/GI: non tender (no bowel sounds), soft Extremities/Musculoskelatal: no calf tenderness, no pedal edema Neurologic/Psych: alert, oriented x 3 Family History Negative for CKD / ESRD Social History Marital Status: Occupation: retired . Retired. Former smoker Laboratory Results Past 24 Hours 09/06/16 06:21 09/06/16 06:21 Test 09/05/16 10:20 09/06/16 06:21 Urine Random Creatinine 130.0 mg/dl Urine Random Sodium 12 mEq/L Red Blood Count 3.64 M/uL (4.7-6.1) Mean Corpuscular Volume 96.4 fL (80-100) Mean Corpuscular Hemoglobin 32.1 pg (25-34) Mean Corpuscular Hemoglobin Concent 33.3 g/dl (32-36) RDW Standard Deviation 50.6 fL (36.4-46.3) RDW Coefficient of Variation 14.5 % (11.5-14.5) Mean Platelet Volume 13.0 fL (7.4-10.4) Anion Gap 12.0 mmol/L (3-11) Est Creatinine Clear Calc Drug Dose 13.1 ml/min Estimated GFR () 11.0 Estimated GFR (Non- 9.5 BUN/Creatinine Ratio 18.7 (10-20) Calcium Level 8.2 mg/dl (8.5-10.1) Allergies Coded Allergies: Hydrochlorothiazide (Verified Allergy, Unknown, PT. DOESN'T REMEMBER REACTION, 09/03/16) Aspirin (Verified Adverse Reaction, Intermediate, LARGE DOSES ASPIRIN- BLEEDING AND ABDOMINAL IRRITATION, 09/03/16) CAN TAKE 81 MG. ASPIRIN Q2D Paroxetine (Verified Adverse Reaction, Mild, UPSET STOMACH, 09/03/16) Sertraline (Verified Adverse Reaction, Mild, UPSET STOMACH, 09/03/16) Clopidogrel (Verified Adverse Reaction, Unknown, UPSET STOMACH, 09/03/16) Medications Current Inpatient Medications Medications (Trade) Dose Ordered Sig/Edilson Route Start Time Stop Time Status Last Admin Dose Admin Felodipine (Plendil Tabcr) 2.5 mg QAM PO 09/04/16 09:00 10/04/16 08:59 Future Hold 09/05/16 08:44 2.5 MG Pantoprazole Sodium (Protonix Tab) 40 mg QAM PO 09/04/16 09:00 10/04/16 08:59 09/05/16 07:46 40 MG Simvastatin (Zocor Tab) 60 mg QPM PO 09/03/16 21:00 10/03/16 20:59 09/05/16 20:14 60 MG Ascorbic Acid (Vitamin C Tab) 250 mg QAM PO 09/04/16 09:00 10/04/16 08:59 09/05/16 07:47 250 MG Acetaminophen (Tylenol Tab) 650 mg Q4H PRN PO 09/03/16 11:30 10/03/16 11:29 Al Hydrox/Mg Hydrox/Simethicone (Maalox Max Susp) 15 ml Q4H PRN PO 09/03/16 11:30 10/03/16 11:29 Magnesium Hydroxide (Milk Of Magnesia Susp) 30 ml Q12H PRN PO 09/03/16 11:30 10/03/16 11:29 Ondansetron HCl (Zofran Inj) 4 mg Q6H PRN IV 09/03/16 11:30 10/03/16 11:29 09/05/16 06:35 4 MG Nitroglycerin (Nitrostat Tab) 0.4 mg UD PRN SL 09/03/16 11:30 10/03/16 11:29 Morphine Sulfate (MoRPHine SULFATE INJ) 2 mg Q30M PRN IV 09/03/16 11:30 09/17/16 11:29 09/04/16 05:18 2 MG Polyethylene (Miralax Powder Packet) 17 gm DAILY PRN PO 09/03/16 11:30 10/03/16 11:29 Albuterol/ Ipratropium (Duoneb) 3 ml Q6R INH 09/03/16 15:00 10/03/16 14:59 09/06/16 07:13 3 ML Ampicillin Sodium/ Sulbactam Sodium 3000 mg/Sodium Chloride 108 ml @ 200 mls/hr Q12@0400,1600 IV 09/03/16 16:00 09/10/16 15:59 09/06/16 05:08 200 MLS/HR Azithromycin 500 mg/Dextrose 255 ml @ 125 mls/hr DAILY@1600 IV 09/03/16 16:00 09/10/16 15:59 09/05/16 16:43 125 MLS/HR Albuterol Sulfate (Ventolin 0.083% 2.5MG/3ML Neb) 2.5 mg Q4H PRN INH 09/03/16 14:30 10/03/16 14:29 09/04/16 05:00 2.5 MG Ampicillin Sodium/ Sulbactam Sodium (Consult) 1 ea UD PRN N/A 09/03/16 15:15 10/03/16 15:14 Miscellaneous Information 1 ea UD PRN N/A 09/03/16 15:15 10/03/16 15:14 Benzonatate (Tessalon Perles Cap) 100 mg TID PO 09/04/16 09:00 10/04/16 08:59 09/05/16 20:13 100 MG Sodium Bicarbonate (Sodium Bicarbonate Tab) 650 mg BID PO 09/04/16 09:00 10/04/16 08:59 09/05/16 20:13 650 MG Aspirin (Ecotrin Tab) 81 mg Q2D@0900 PO 09/05/16 09:00 10/05/16 08:59 09/05/16 07:47 81 MG Methylprednisolone Sodium Succinate 40 mg/Syringe 0.64 ml @ 1.5 mls/min Q8H IV 09/05/16 00:00 10/05/16 00:00 09/06/16 09:03 1.5 MLS/MIN Metoprolol Succinate (Toprol Xl Tab) 100 mg BID PO 09/05/16 21:00 10/03/16 20:59 09/06/16 09:03 100 MG Impression (1) Kidney disease, chronic, stage IV (GFR 15-29 ml/min) (2) Pneumonia (3) Hypoxia (4) Hemoptysis (5) Elevated troponin Mr. Gardner was admitted for evaluation of productive cough, hemoptysis and hypoxemia. Chest CT shows patchy consolidation on the R side. V/Q scan is indeterminate. LE doppler was negative for DVT. Patient has developed nonoliguric acute on CKD. Baseline creatinine has been 3.3 (EGFR 17). Chronic renal impairment is on the basis of HTN and renal vascular disease. Metabolic acidosis is due to acute renal insufficiency and infection. Troponin is progressively increasing. Echocardiogram 09/03 LVEF 35 - 40% w/ global hypokinesis. 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 No acute indication for HD today. Will reassess in am. AVF was checked this am and remains functional -- Stop IV fluid. Will provide one dose IV Furosemide due to worsening pulmonary and radiographic findings -- Monitor serial PRP CHRONIC KIDNEY DISEASE: -- Baseline creatinine 3.3 w/ EGFR 17 cc/min due to HTN and renal vascular disease ID: -- Agree with empiric broad spectrum antibiotics. Recommend dosing for EGFR < 15 cc/min -- Recommend follow up CXR in am to reassess pneumonia -- Await further Pulmonology and ID input CV: -- No angina. Continue to monitor
--- NOTE | 2016-09-06 09:37 | Pulmonology Progress Note ---
Pulmonary Progress Note Date of Service Sep 06, 2016. Attending Dr. Tobar Subjective The patient seen and examined this morning. States that he is tired. He was given Ambien last night and had episodes of disorientation. He remained on BiPAP overnight. Objective Vitals seen and listed below. General: He appears more lethargic today, but arousable. Alert and oriented 3. Mild respiratory distress. CVS: S1-S2, regular rate and rhythm Lungs: Crackles bilaterally on anterior chest. No wheezing. Abdomen soft nontender nondistended Extremities no edema cyanosis or clubbing Sputum culture from 09/03/2016 and 09/04/2016normal vi Urinary Legionella antigen, mycoplasma pneumonia antibody, and pneumococcal antibodies are pending. Imaging reviewed. Chest x-ray from 09/06/2016 IMPRESSION: Unchanged to slightly improved parenchymal infiltrative/pulmonary edematous change throughout both hemithoraces. Differential is as noted previously Venous Doppler of bilateral lower extremities 09/04/2016no DVT with a right or left lower extremities. Abdominal x-ray 09/05/2016mild nonobstructive ileus. Diffuse bibasilar parenchymal infiltrative change. Assessment & Plan Hypoxic respiratory failure Multifocal pneumonia Hemoptysis Pulmonary hypertension (most likely type II and type III) NSTEMI CKD stage IV Metabolic acidosis This morning patient appears to be tiring. I spoke with Dr. Wooten , the hospitalist on service he states that he is going to upgrade him to medical ICU for further monitoring. Patient is currently on BiPAP of 12 over 5, 60% FiO2. I recommend stat ABG with lactate at this time. Chest x-ray appears to be slightly improved from previous on 09/03/2016. This may be a combination of CHF , worsening pneumonia. Patient has adequate urine output, with worsening kidney function. Continue with BiPAP as tolerated Try to maintain oxygen between an SaO2 of 88-92%. Continue with empiric antibiotics, bronchodilators and systemic steroids. We should try to keep him in a negative balance however with his worsening renal function a diuretic should not be given at this time. In terms of pulmonary hypertension seen on echo from 09/03/2016 this may be secondary to both pulmonary and cardiac etiologies and also an elevated in acute pulmonary processes. This should be reevaluated when patient is clinically stable. If he should further decompensate he should be promptly intubated. Data Medications: Current Inpatient Medications Medications (Trade) Dose Ordered Sig/Edilson Route Start Time Stop Time Status Last Admin Dose Admin Felodipine (Plendil Tabcr) 2.5 mg QAM PO 09/04/16 09:00 10/04/16 08:59 09/05/16 08:44 2.5 MG Pantoprazole Sodium (Protonix Tab) 40 mg QAM PO 09/04/16 09:00 10/04/16 08:59 09/05/16 07:46 40 MG Simvastatin (Zocor Tab) 60 mg QPM PO 09/03/16 21:00 10/03/16 20:59 09/05/16 20:14 60 MG Ascorbic Acid (Vitamin C Tab) 250 mg QAM PO 09/04/16 09:00 10/04/16 08:59 09/05/16 07:47 250 MG Acetaminophen (Tylenol Tab) 650 mg Q4H PRN PO 09/03/16 11:30 10/03/16 11:29 Al Hydrox/Mg Hydrox/Simethicone (Maalox Max Susp) 15 ml Q4H PRN PO 09/03/16 11:30 10/03/16 11:29 Magnesium Hydroxide (Milk Of Magnesia Susp) 30 ml Q12H PRN PO 09/03/16 11:30 10/03/16 11:29 Ondansetron HCl (Zofran Inj) 4 mg Q6H PRN IV 09/03/16 11:30 10/03/16 11:29 09/05/16 06:35 4 MG Nitroglycerin (Nitrostat Tab) 0.4 mg UD PRN SL 09/03/16 11:30 10/03/16 11:29 Morphine Sulfate (MoRPHine SULFATE INJ) 2 mg Q30M PRN IV 09/03/16 11:30 09/17/16 11:29 09/04/16 05:18 2 MG Polyethylene (Miralax Powder Packet) 17 gm DAILY PRN PO 09/03/16 11:30 10/03/16 11:29 Albuterol/ Ipratropium (Duoneb) 3 ml Q6R INH 09/03/16 15:00 10/03/16 14:59 09/06/16 07:13 3 ML Ampicillin Sodium/ Sulbactam Sodium 3000 mg/Sodium Chloride 108 ml @ 200 mls/hr Q12@0400,1600 IV 09/03/16 16:00 09/10/16 15:59 09/06/16 05:08 200 MLS/HR Azithromycin 500 mg/Dextrose 255 ml @ 125 mls/hr DAILY@1600 IV 09/03/16 16:00 09/10/16 15:59 09/05/16 16:43 125 MLS/HR Albuterol Sulfate (Ventolin 0.083% 2.5MG/3ML Neb) 2.5 mg Q4H PRN INH 09/03/16 14:30 10/03/16 14:29 09/04/16 05:00 2.5 MG Ampicillin Sodium/ Sulbactam Sodium (Consult) 1 ea UD PRN N/A 09/03/16 15:15 10/03/16 15:14 Miscellaneous Information 1 ea UD PRN N/A 09/03/16 15:15 10/03/16 15:14 Benzonatate (Tessalon Perles Cap) 100 mg TID PO 09/04/16 09:00 10/04/16 08:59 09/05/16 20:13 100 MG Sodium Bicarbonate (Sodium Bicarbonate Tab) 650 mg BID PO 09/04/16 09:00 10/04/16 08:59 09/05/16 20:13 650 MG Aspirin (Ecotrin Tab) 81 mg Q2D@0900 PO 09/05/16 09:00 10/05/16 08:59 09/05/16 07:47 81 MG Methylprednisolone Sodium Succinate 40 mg/Syringe 0.64 ml @ 1.5 mls/min Q8H IV 09/05/16 00:00 10/05/16 00:00 09/06/16 09:03 1.5 MLS/MIN Metoprolol Succinate (Toprol Xl Tab) 100 mg BID PO 09/05/16 21:00 10/03/16 20:59 09/06/16 09:03 100 MG Vital Signs: Date Time Temp Pulse Resp B/P (MAP) Pulse Ox O2 Delivery O2 Flow Rate FiO2 09/06/16 07:56 36.4 103 22 101/60 (74) 92 BiPAP 09/06/16 07:13 101 20 88 BiPAP/CPAP 60 09/06/16 04:00 97 BiPAP 60 09/06/16 04:00 36.6 100 18 114/67 (83) 97 BiPAP 09/06/16 02:01 98 20 93 BiPAP/CPAP 60 09/06/16 00:00 96 BiPAP 60 09/05/16 23:40 36.5 109 22 114/71 (85) 98 BiPAP 09/05/16 22:33 104 104/66 (79) 09/05/16 22:00 110 93 55 09/05/16 20:15 91 Oxymask 15.0 09/05/16 19:29 36.4 97 20 98/65 (76) 94 Mask 15.0 09/05/16 19:07 98 20 93 Mask 15.0 09/05/16 16:00 BiPAP 60 09/05/16 15:12 36.4 92 19 103/68 (80) 95 BiPAP 09/05/16 13:46 95 26 94 BiPAP/CPAP 60 09/05/16 12:03 36.4 109 20 112/74 (87) 89 Nasal Cannula 8.0 09/05/16 12:00 Oxymask 8.0 Laboratory Results: Last 24 Hours Test 09/05/16 10:20 09/06/16 06:21 Urine Random Creatinine 130.0 mg/dl Urine Random Sodium 12 mEq/L White Blood Count 13.33 K/uL Red Blood Count 3.64 M/uL Hemoglobin 11.7 g/dL Hematocrit 35.1 % Mean Corpuscular Volume 96.4 fL Mean Corpuscular Hemoglobin 32.1 pg Mean Corpuscular Hemoglobin Concent 33.3 g/dl RDW Standard Deviation 50.6 fL RDW Coefficient of Variation 14.5 % Platelet Count 72 K/uL Mean Platelet Volume 13.0 fL Sodium Level 143 mmol/L Potassium Level 5.0 mmol/L Chloride Level 113 mmol/L Carbon Dioxide Level 18 mmol/L Anion Gap 12.0 mmol/L Blood Urea Nitrogen 101 mg/dl Creatinine 5.40 mg/dl Est Creatinine Clear Calc Drug Dose 13.1 ml/min Estimated GFR () 11.0 Estimated GFR (Non- 9.5 BUN/Creatinine Ratio 18.7 Random Glucose 153 mg/dl Calcium Level 8.2 mg/dl
--- NOTE | 2016-09-06 11:20 | Critical Care Consultation ---
Critical Care Consultation Date of Consultation: Sep 06, 2016. Attending Physician: Rasta Wooten D.O. Reason for Consultation: Hypoxemic respiratory failure-- History of Present Illness He was admitted with respiratory symptoms and diagnosed with pneumonia. This is in the setting of Stage 4 renal disease and vascular disease. He was started on IV antibiotics and supplemental oxygen. He has required substantial supplemental oxygen in the setting of his metabolic acidosis and respiratory acidosis. Because of worsening performance he was moved to the ICU for close monitoring and care. He reports congestion. Does not report worsening dyspnea. No target pain. He is speaking in full sentences with me today. Cough sounding congested. Past Medical/Surgical History AAA-repair Stage 4 renal disease ASCAD HTN Social History Smoking Status: Former Smoker Marital Status: Occupation Status: retired Allergies Coded Allergies: Hydrochlorothiazide (Verified Allergy, Unknown, PT. DOESN'T REMEMBER REACTION, 09/03/16) Aspirin (Verified Adverse Reaction, Intermediate, LARGE DOSES ASPIRIN- BLEEDING AND ABDOMINAL IRRITATION, 09/03/16) CAN TAKE 81 MG. ASPIRIN Q2D Paroxetine (Verified Adverse Reaction, Mild, UPSET STOMACH, 09/03/16) Sertraline (Verified Adverse Reaction, Mild, UPSET STOMACH, 09/03/16) Clopidogrel (Verified Adverse Reaction, Unknown, UPSET STOMACH, 09/03/16) Home Medications Scheduled Ascorbic Acid (Vitamin C), 100 MG PO QAM Cyanocobalamin (Cyanocobalamin), 1 ML INJ Q4WK Ergocalciferol (Vitamin D 50656 Unit), 50,000 UNIT PO Q4WK Felodipine (Felodipine ER), 2.5 MG PO QAM Metoprolol Succ (Toprol Xl) (Toprol-Xl), 75 MG PO BID Pantoprazole (Protonix), 40 MG PO QAM Simvastatin (Zocor), 60 MG PO QPM Current Inpatient Medications Current Inpatient Medications Medications (Trade) Dose Ordered Sig/Edilson Route Start Time Stop Time Status Last Admin Dose Admin Felodipine (Plendil Tabcr) 2.5 mg QAM PO 09/04/16 09:00 10/04/16 08:59 Future Hold 09/05/16 08:44 2.5 MG Pantoprazole Sodium (Protonix Tab) 40 mg QAM PO 09/04/16 09:00 10/04/16 08:59 09/05/16 07:46 40 MG Simvastatin (Zocor Tab) 60 mg QPM PO 09/03/16 21:00 10/03/16 20:59 09/05/16 20:14 60 MG Ascorbic Acid (Vitamin C Tab) 250 mg QAM PO 09/04/16 09:00 10/04/16 08:59 09/05/16 07:47 250 MG Acetaminophen (Tylenol Tab) 650 mg Q4H PRN PO 09/03/16 11:30 10/03/16 11:29 Al Hydrox/Mg Hydrox/Simethicone (Maalox Max Susp) 15 ml Q4H PRN PO 09/03/16 11:30 10/03/16 11:29 Magnesium Hydroxide (Milk Of Magnesia Susp) 30 ml Q12H PRN PO 09/03/16 11:30 10/03/16 11:29 Ondansetron HCl (Zofran Inj) 4 mg Q6H PRN IV 09/03/16 11:30 10/03/16 11:29 09/05/16 06:35 4 MG Nitroglycerin (Nitrostat Tab) 0.4 mg UD PRN SL 09/03/16 11:30 10/03/16 11:29 Morphine Sulfate (MoRPHine SULFATE INJ) 2 mg Q30M PRN IV 09/03/16 11:30 09/17/16 11:29 09/04/16 05:18 2 MG Polyethylene (Miralax Powder Packet) 17 gm DAILY PRN PO 09/03/16 11:30 10/03/16 11:29 Albuterol/ Ipratropium (Duoneb) 3 ml Q6R INH 09/03/16 15:00 10/03/16 14:59 09/06/16 07:13 3 ML Ampicillin Sodium/ Sulbactam Sodium 3000 mg/Sodium Chloride 108 ml @ 200 mls/hr Q12@0400,1600 IV 09/03/16 16:00 09/10/16 15:59 09/06/16 05:08 200 MLS/HR Azithromycin 500 mg/Dextrose 255 ml @ 125 mls/hr DAILY@1600 IV 09/03/16 16:00 09/10/16 15:59 09/05/16 16:43 125 MLS/HR Albuterol Sulfate (Ventolin 0.083% 2.5MG/3ML Neb) 2.5 mg Q4H PRN INH 09/03/16 14:30 10/03/16 14:29 09/04/16 05:00 2.5 MG Ampicillin Sodium/ Sulbactam Sodium (Consult) 1 ea UD PRN N/A 09/03/16 15:15 10/03/16 15:14 Miscellaneous Information 1 ea UD PRN N/A 09/03/16 15:15 10/03/16 15:14 Benzonatate (Tessalon Perles Cap) 100 mg TID PO 09/04/16 09:00 10/04/16 08:59 09/05/16 20:13 100 MG Sodium Bicarbonate (Sodium Bicarbonate Tab) 650 mg BID PO 09/04/16 09:00 10/04/16 08:59 09/05/16 20:13 650 MG Aspirin (Ecotrin Tab) 81 mg Q2D@0900 PO 09/05/16 09:00 10/05/16 08:59 09/05/16 07:47 81 MG Methylprednisolone Sodium Succinate 40 mg/Syringe 0.64 ml @ 1.5 mls/min Q8H IV 09/05/16 00:00 10/05/16 00:00 09/06/16 09:03 1.5 MLS/MIN Metoprolol Succinate (Toprol Xl Tab) 100 mg BID PO 09/05/16 21:00 10/03/16 20:59 09/06/16 09:03 100 MG Furosemide 80 mg/ Syringe 8 ml @ 4 mls/min NOW IV 09/06/16 10:00 10/06/16 09:59 UNV Review of Systems Cough with congestion noted. Dyspnea with any exertion. No chills. No ongoing bleeding. No new neuro complaints. No GI/ concerns. The remaining 14 point unhelpful at this point. Physical Exam Date Time Temp Pulse Resp B/P (MAP) Pulse Ox O2 Delivery O2 Flow Rate FiO2 09/06/16 10:26 36.4 103 22 95 15.0 09/06/16 08:00 95 BiPAP 60 09/06/16 07:56 36.4 103 22 101/60 (74) 92 BiPAP 09/06/16 07:13 101 20 88 BiPAP/CPAP 60 09/06/16 04:00 97 BiPAP 60 09/06/16 04:00 36.6 100 18 114/67 (83) 97 BiPAP 09/06/16 02:01 98 20 93 BiPAP/CPAP 60 09/06/16 00:00 96 BiPAP 60 09/05/16 23:40 36.5 109 22 114/71 (85) 98 BiPAP 09/05/16 22:33 104 104/66 (79) 09/05/16 22:00 110 93 55 09/05/16 20:15 91 Oxymask 15.0 09/05/16 19:29 36.4 97 20 98/65 (76) 94 Mask 15.0 09/05/16 19:07 98 20 93 Mask 15.0 09/05/16 16:00 BiPAP 60 09/05/16 15:12 36.4 92 19 103/68 (80) 95 BiPAP 09/05/16 13:46 95 26 94 BiPAP/CPAP 60 09/05/16 12:03 36.4 109 20 112/74 (87) 89 Nasal Cannula 8.0 09/05/16 12:00 Oxymask 8.0 Gen--frail appearing with mild increased respiratory effort HEENT--Neck veins not elevated Pulmonary--course--diffuse changes. No wheezing Cardio--rate in the 90 range. B/P stable. Perfusion is adequate GI--a bit distended. Bowel sounds ok --neg Musculo--frail--no issues Neuro--nonfocal evaluation Psych--calm and appropriate with me today. Laboratory Results Last 24 Hours Test 09/06/16 06:21 White Blood Count 13.33 K/uL Red Blood Count 3.64 M/uL Hemoglobin 11.7 g/dL Hematocrit 35.1 % Mean Corpuscular Volume 96.4 fL Mean Corpuscular Hemoglobin 32.1 pg Mean Corpuscular Hemoglobin Concent 33.3 g/dl RDW Standard Deviation 50.6 fL RDW Coefficient of Variation 14.5 % Platelet Count 72 K/uL Mean Platelet Volume 13.0 fL Sodium Level 143 mmol/L Potassium Level 5.0 mmol/L Chloride Level 113 mmol/L Carbon Dioxide Level 18 mmol/L Anion Gap 12.0 mmol/L Blood Urea Nitrogen 101 mg/dl Creatinine 5.40 mg/dl Est Creatinine Clear Calc Drug Dose 13.1 ml/min Estimated GFR () 11.0 Estimated GFR (Non- 9.5 BUN/Creatinine Ratio 18.7 Random Glucose 153 mg/dl Calcium Level 8.2 mg/dl Assessment & Plan Hypoxemic Respiratory failure/Pneumonia/Underlying chronic lung disease--This in the setting of PVD/AAA repair and advanced renal dysfunction-- 1. Pulmonary--will start HFNC and monitor closely. Antibiotics and general pulmonary toilette in place. I spoke with Dr. Tobar who is assisting with the care. 2. Cardio--limit volume 3. Renal--dialysis probably tomorrow per nephrology 4. GI--no changes 5. Heme--looks like ITP 6. ID-antibiotic coverage looking good. Will track with primary team.
[2016-09-06] MEDS ORDERED: FUROSEMIDE INJ 80 MG in SYRINGE 0 ML IV ONE (11:30)
[2016-09-06 14:39] LABS: URINE APPEARANCE CLEAR (CLEAR); URINE BILIRUBIN NEG (NEG); URINE COLOR YELLOW; URINE NITRITE NEG (NEG); URINE SPECIFIC GRAVITY 1.021 (1.000-1.030); UROBILINOGEN NEG (NEG)
[2016-09-06 14:41] LABS: MANUAL MICROSCOPIC REQUIRED? NO; REVIEW REQ? NO
[2016-09-06] MEDS: AZITHROMYCIN IV 500 MG in DEXTROSE 5% 250ML 250 ML IV SCH (16:12)
[2016-09-06] MEDS: SIMVASTATIN 20 MG TAB PO SCH (20:49)
[2016-09-07] VITALS (12 sets, daily range): BP systolic 35–125; BP diastolic 11–76; PULSE 67–111; TEMP 36.6–36.7; O2SAT 90–96
[2016-09-07] MEDS ORDERED: NURSING VERBAL MED ORDER ONE (01:45)
[2016-09-07] MEDS ORDERED: ACETAMINOPHEN IV 650 MG / 65ML IV PRN (02:00)
[2016-09-07] MEDS: ALBUT/IPRATROP 3MG/0.5MG NEB 3 ML VIAL INH SCH ×2 (02:25→07:11)
[2016-09-07] MEDS: AMPICILLIN/SULBACTAM SOD INJ 3,000 MG in SODIUM CHLORIDE 0.9% 100ML 100 ML IV SCH (04:18)
[2016-09-07 05:13] LABS: HEMATOCRIT 34.5 % (42-52); MEAN CELL VOLUME 95.8 fL (80-100); MEAN CORPUSCULAR HEMOGLOBIN 31.9 pg (25-34); MEAN CORPUSCULAR HGB CONC 33.3 g/dl (32-36); PLATELET COUNT 95 K/uL (130-400); WHITE BLOOD COUNT 11.06 K/uL (4.8-10.8)
[2016-09-07 05:56] LABS: BUN/CREATININE RATIO 22.4 (10-20); CALCIUM 7.4 mg/dl (8.5-10.1); CREATININE 5.6 mg/dl (0.60-1.40); POTASSIUM 4.1 mmol/L (3.5-5.1)
--- NOTE | 2016-09-07 08:04 | Cardiology Follow-Up ---
Subjective Date of Service: Sep 07, 2016. Pt evaluation today including: conversation w/ patient, physical exam, chart review, lab review, review of studies, conversation w/ oracle identity management consultant (Dr. Watson of ICU and Dr. Branch of Nephrology), review of inpatient medication list History of Present Illness He denies angina, syncope, bleeding, or palpitations. He was transferred to the ICU over the weekend given his respiratory issues. Nephrology ordered Lasix yesterday and as per nursing staff, he had very little urine output throughout the day, approximately 250 mL following Lasix administration 80 mg IV. Metoprolol succinate was held last evening due to transient hypotension. He has been having brief episodes of SVT, nonsustained, on telemetry he is currently on high flow nasal cannula and his main complaints at this time are that he is unable to sleep due to feeling congested and that his mouth is dry. Review of systems: As above. Social History Smoking Status: Former Smoker History of Alcohol Use: No Medications Current Inpatient Medications Medications (Trade) Dose Ordered Sig/Edilson Route Start Time Stop Time Status Last Admin Dose Admin Felodipine (Plendil Tabcr) 2.5 mg QAM PO 09/04/16 09:00 10/04/16 08:59 Future Hold 09/05/16 08:44 2.5 MG Pantoprazole Sodium (Protonix Tab) 40 mg QAM PO 09/04/16 09:00 10/04/16 08:59 09/05/16 07:46 40 MG Simvastatin (Zocor Tab) 60 mg QPM PO 09/03/16 21:00 10/03/16 20:59 09/06/16 20:49 60 MG Ascorbic Acid (Vitamin C Tab) 250 mg QAM PO 09/04/16 09:00 10/04/16 08:59 09/05/16 07:47 250 MG Acetaminophen (Tylenol Tab) 650 mg Q4H PRN PO 09/03/16 11:30 10/03/16 11:29 09/06/16 22:01 650 MG Al Hydrox/Mg Hydrox/Simethicone (Maalox Max Susp) 15 ml Q4H PRN PO 09/03/16 11:30 10/03/16 11:29 Magnesium Hydroxide (Milk Of Magnesia Susp) 30 ml Q12H PRN PO 09/03/16 11:30 10/03/16 11:29 Ondansetron HCl (Zofran Inj) 4 mg Q6H PRN IV 09/03/16 11:30 10/03/16 11:29 09/05/16 06:35 4 MG Nitroglycerin (Nitrostat Tab) 0.4 mg UD PRN SL 09/03/16 11:30 10/03/16 11:29 Morphine Sulfate (MoRPHine SULFATE INJ) 2 mg Q30M PRN IV 09/03/16 11:30 09/17/16 11:29 09/04/16 05:18 2 MG Polyethylene (Miralax Powder Packet) 17 gm DAILY PRN PO 09/03/16 11:30 10/03/16 11:29 Albuterol/ Ipratropium (Duoneb) 3 ml Q6R INH 09/03/16 15:00 10/03/16 14:59 09/07/16 07:11 3 ML Ampicillin Sodium/ Sulbactam Sodium 3000 mg/Sodium Chloride 108 ml @ 200 mls/hr Q12@0400,1600 IV 09/03/16 16:00 09/10/16 15:59 09/07/16 04:18 200 MLS/HR Azithromycin 500 mg/Dextrose 255 ml @ 125 mls/hr DAILY@1600 IV 09/03/16 16:00 09/10/16 15:59 09/06/16 16:12 125 MLS/HR Albuterol Sulfate (Ventolin 0.083% 2.5MG/3ML Neb) 2.5 mg Q4H PRN INH 09/03/16 14:30 10/03/16 14:29 09/04/16 05:00 2.5 MG Ampicillin Sodium/ Sulbactam Sodium (Consult) 1 ea UD PRN N/A 09/03/16 15:15 10/03/16 15:14 Miscellaneous Information 1 ea UD PRN N/A 09/03/16 15:15 10/03/16 15:14 Sodium Bicarbonate (Sodium Bicarbonate Tab) 650 mg BID PO 09/04/16 09:00 10/04/16 08:59 09/06/16 20:48 650 MG Aspirin (Ecotrin Tab) 81 mg Q2D@0900 PO 09/05/16 09:00 10/05/16 08:59 09/05/16 07:47 81 MG Methylprednisolone Sodium Succinate 40 mg/Syringe 0.64 ml @ 1.5 mls/min Q8H IV 09/05/16 00:00 10/05/16 00:00 09/06/16 23:44 1.5 MLS/MIN Metoprolol Succinate (Toprol Xl Tab) 100 mg BID PO 09/05/16 21:00 09/07/16 07:38 09/06/16 09:03 100 MG Acetaminophen 650 mg/Empty Bag 65 ml @ 260 mls/hr Q4H PRN IV 09/07/16 02:00 10/07/16 01:59 Objective Vital Signs Past 12 Hours Date Time Temp Pulse Resp B/P (MAP) Pulse Ox O2 Delivery O2 Flow Rate FiO2 09/07/16 07:11 104 27 91 Nasal Cannula 50.0 100 09/07/16 06:00 102 20 110/64 (79) 93 09/07/16 04:00 High Flow Oxygen 50.0 93 09/07/16 04:00 36.6 108 22 103/68 (80) 90 High Flow Oxygen 50.0 90 09/07/16 02:25 101 20 92 Nasal Cannula 50.0 100 09/07/16 02:00 102 26 110/75 (87) 09/07/16 00:00 High Flow Oxygen 50.0 93 09/07/16 00:00 36.7 99 20 106/63 (77) 93 High Flow Oxygen 50.0 90 09/06/16 22:00 90 24 96/64 (75) 92 High Flow Oxygen 50.0 90 09/06/16 20:00 36.5 90 19 99/61 (74) 95 High Flow Oxygen 50.0 90 09/06/16 20:00 High Flow Oxygen 50.0 90 Last Recorded Weight-Kilograms: 86.600 Intake & Output 09/06/16 09/07/16 09/08/16 07:59 07:59 07:59 Intake Total 1949 ml 1302 ml Output Total 450 ml 825 ml Balance 1499 ml 477 ml Physical Exam Lungs: Auscultation: rales/crackles on the right Cardiovascular: Apical Impulse: not displaced Gen.: No acute distress. Alert and oriented. He is currently on highflow nasal cannula. HEENT: Anicteric sclera. Neck: JVD noted to mandible sitting at approximately 45 degrees. Cardiac: No ventricular heave. Regular. Normal S1-S2. No murmurs, rubs, or gallops. Pulmonary: Coarse breath sounds bilaterally with rales. Decreased breath sounds bilaterally. Abdomen: Soft, nontender, nondistended, with normoactive bowel sounds. No bruits noted. Extremities: Left upper extremity AV fistula with palpable thrill and audible bruit. No pitting edema or cyanosis. Psychiatric: Affect appears appropriate. Data Laboratory Results: Last 24 Hours Test 09/06/16 11:13 09/06/16 13:40 09/06/16 15:35 09/06/16 20:43 Bedside Glucose 162 mg/dl 146 mg/dl 165 mg/dl Urine Color YELLOW Urine Appearance CLEAR Urine pH 5.0 Urine Specific [place] 1.021 Urine Protein TRACE Urine Glucose (UA) NEG Urine Ketones NEG Urine Occult Blood 3+ Urine Nitrite NEG Urine Bilirubin NEG Urine Urobilinogen NEG Urine Leukocyte Esterase TRACE Urine WBC (Auto) 1-5 /hpf Urine RBC (Auto) >30 /hpf Urine Hyaline Casts (Auto) 1-5 /lpf Urine Epithelial Cells (Auto) 5-10 /lpf Urine Bacteria (Auto) NEG Test 09/07/16 04:59 09/07/16 07:38 White Blood Count 11.06 K/uL Red Blood Count 3.60 M/uL Hemoglobin 11.5 g/dL Hematocrit 34.5 % Mean Corpuscular Volume 95.8 fL Mean Corpuscular Hemoglobin 31.9 pg Mean Corpuscular Hemoglobin Concent 33.3 g/dl RDW Standard Deviation 49.8 fL RDW Coefficient of Variation 14.3 % Platelet Count 95 K/uL Mean Platelet Volume 13.0 fL Nucleated RBC Absolute Count (auto) 0.06 K/uL Nucleated Red Blood Cells % 0.5 % Sodium Level 142 mmol/L Potassium Level 4.1 mmol/L Chloride Level 110 mmol/L Carbon Dioxide Level 17 mmol/L Anion Gap 15.0 mmol/L Blood Urea Nitrogen 128 mg/dl Creatinine 5.60 mg/dl Est Creatinine Clear Calc Drug Dose 12.7 ml/min Estimated GFR () 10.5 Estimated GFR (Non- 9.1 BUN/Creatinine Ratio 22.4 Random Glucose 184 mg/dl Calcium Level 7.4 mg/dl Imaging: CXR image personally reviewed. Chest x-ray 09/07/2016: Unchanged to slightly improved parenchymal infiltrate of/pulmonary edematous changes throughout both hemithoraces as per Radiology. Telemetry reviewed: Sinus rhythm with sinus tachycardia. Brief episodes of SVT. Assessment and Plan 1. Respiratory failure/hypoxia: Likely multifactorial. He has chronic lung issues and is now being treated for pneumonia. He also appears hypervolemic which is likely due to LV systolic dysfunction as well as renal failure with low urine output. Would recommend improvement volume status as possible, which may require hemodialysis. Other supportive care as per ICU team and primary service. 2. Non ST-elevation myocardial infarction: He did not present with acute coronary syndrome and has not had any angina. He had declined cardiac catheterization, and there is no urgent indication at this time given the fact that he has other significant comorbidities with multi system organ failure. Continue aspirin 81 mg daily. Recommended Plavix however he states that he is intolerant to Plavix. Continue statin therapy. Will begin high-intensity statin therapy in place of simvastatin. ECG ordered. 3. Cardiomyopathy: Etiology could be due to acute illness, ischemic, or other etiology. No angina. Continue metoprolol succinate but will lower the dose given transient hypotension, which resulted in holding of his medication. No Giovany inhibitor or ARB due to renal failure. He has declined cardiac catheterization to evaluate for ischemic heart disease. 4. Acute systolic CHF: He does appear hypervolemic, which also could be due to the fact that he has very low urine output with worsening acute on chronic renal failure. He did not have any significant response that IV Lasix 80 mg yesterday. Recommend net negative fluid balance. Daily weights. Strict I & Os. 5. Mild pulmonary hypertension: RVSP was mildly elevated on echocardiogram. This could be secondary to emphysema described by Radiology with the acute pulmonary issues as noted above, with also potential hypervolemia. This can be monitored over time with echocardiogram. 6. Paroxysmal SVT: Resume metoprolol succinate but will lower the dose to 50 mg twice daily. His home doses 75 mg twice daily. This can be titrated as blood pressure allows. 7. Thrombocytopenia: As per primary service. 8. Acute on chronic renal failure: As per Nephrology. This was discussed with Dr. Branch via telephone today. Hemodialysis is contemplated for today. 9. Disposition: Multi system organ failure. Poor prognosis. Cardiology will continue to follow. Patient care has been discussed with Dr. Watson and also Dr. Branch.
[2016-09-07] MEDS ORDERED: NOREPINEPHRINE BIT INJ 8 MG in DEXTROSE 5% 500ML 500 ML IV PRN (08:15)
[2016-09-07] MEDS ORDERED: RAPID SEQUENCE INDUCTION BAG ONE (08:16)
[2016-09-07] MEDS ORDERED: EPINEPHRINE HCL 4 MG in DEXTROSE 5% 250ML IV PRN (08:30)
[2016-09-07] MEDS ORDERED: FENTANYL CITRATE INJ 50 MCG/1 ML 2 ML VIAL IV ONE (08:30)
--- NOTE | 2016-09-07 08:38 | Anesthesiology Progress Note ---
Anesthesia Progress Note Date of Service Sep 07, 2016. Progress Notes Arrived to ICU following overhead code blue. ACLS including chest compressions already underway under direction of human performance consultant. Secure airway was not in place. I did intubate the patient without any medications given using a #3 glide scope and a 7.5ETT. Continuous ETCO2 was confirmed. Tube was secured at 23cm at the lip. The patient did regain spontaneous circulation following the procedure and epinephrine. ACLS measures were continued by the code team.
[2016-09-07] MEDS ORDERED: MIDAZOLAM 125MG/250ML D5W 250 ML IV PRN (09:00)
[2016-09-07] MEDS ORDERED: DOBUTAMINE 500MG / D5W IV PRN (09:00)
[2016-09-07] MEDS ORDERED: METOPROLOL SUCC 50MG EXT REL TAB PO SCH (09:00)
[2016-09-07] MEDS ORDERED: FENTANYL CITRATE INJ 50 MCG/1 ML 2 ML VIAL IV STA (09:06)
[2016-09-07] MEDS ORDERED: MIDAZOLAM HCL 5 MG/ML 2ML VIAL IV ONE (09:30)
--- NOTE | 2016-09-07 09:33 | Nephrology Progress Note ---
Nephrology Progress Note Date of Service Sep 07, 2016. Chief Complaint F/U for ESRD Subjective Mr. Gardner was seen and examined in his room this am., intubated, sedated. Tramaine santiago team was still in his room and he was just resuscitated successfully and intubated after he developed complete heart block. BP still low on pressor. Renal function progressively worsening, UO low in response to diuretics. Review of Systems ROS was not possible as pt intubated. Vital Signs Last 8 Hrs Date Time Temp Pulse Resp B/P (MAP) Pulse Ox O2 Delivery O2 Flow Rate FiO2 09/07/16 07:11 104 27 91 Nasal Cannula 50.0 100 09/07/16 06:00 102 20 110/64 (79) 93 09/07/16 04:00 High Flow Oxygen 50.0 93 09/07/16 04:00 36.6 108 22 103/68 (80) 90 High Flow Oxygen 50.0 90 09/07/16 02:25 101 20 92 Nasal Cannula 50.0 100 09/07/16 02:00 102 26 110/75 (87) Last Recorded Weight Weight (Kilograms): 86.600 Physical Exam General Appearance: + pertinent finding (Intubated, sedated) Respiratory/Chest: + decreased breath sounds Cardiovascular: + pertinent finding (Paced rhythm.) Abdomen/GI: non tender, soft Extremities/Musculoskelatal: no pedal edema Neurologic/Psych: + pertinent finding (sedated.) Family History Negative for CKD / ESRD Social History Marital Status: Occupation: retired . Retired. Former smoker Laboratory Results Past 24 Hours 09/07/16 04:59 09/07/16 04:59 Test 09/06/16 11:13 09/06/16 13:40 09/06/16 15:35 09/06/16 20:43 Bedside Glucose 162 mg/dl (70-99) 146 mg/dl (70-99) 165 mg/dl (70-99) Urine Color YELLOW Urine Appearance CLEAR (CLEAR) Urine pH 5.0 (4.5-7.5) Urine Specific [place] 1.021 (1.000-1.030) Urine Protein TRACE (NEG) Urine Glucose (UA) NEG (NEG) Urine Ketones NEG (NEG) Urine Occult Blood 3+ (NEG) Urine Nitrite NEG (NEG) Urine Bilirubin NEG (NEG) Urine Urobilinogen NEG (NEG) Urine Leukocyte Esterase TRACE (NEG) Urine WBC (Auto) 1-5 /hpf (0-5) Urine RBC (Auto) >30 /hpf (0-4) Urine Hyaline Casts (Auto) 1-5 /lpf (0-5) Urine Epithelial Cells (Auto) 5-10 /lpf (0-5) Urine Bacteria (Auto) NEG (NEG) Test 09/07/16 04:59 Red Blood Count 3.60 M/uL (4.7-6.1) Mean Corpuscular Volume 95.8 fL (80-100) Mean Corpuscular Hemoglobin 31.9 pg (25-34) Mean Corpuscular Hemoglobin Concent 33.3 g/dl (32-36) RDW Standard Deviation 49.8 fL (36.4-46.3) RDW Coefficient of Variation 14.3 % (11.5-14.5) Mean Platelet Volume 13.0 fL (7.4-10.4) Nucleated RBC Absolute Count (auto) 0.06 K/uL (0-0) Nucleated Red Blood Cells % 0.5 % Anion Gap 15.0 mmol/L (3-11) Est Creatinine Clear Calc Drug Dose 12.7 ml/min Estimated GFR () 10.5 Estimated GFR (Non- 9.1 BUN/Creatinine Ratio 22.4 (10-20) Calcium Level 7.4 mg/dl (8.5-10.1) Date/Time Source Procedure Growth Status 09/06/16 10:40 Nasal MRSA DNA Surveillance Screen - Final Specimen Negative for MRSA by DNA Probe Complete Allergies Coded Allergies: Hydrochlorothiazide (Verified Allergy, Unknown, PT. DOESN'T REMEMBER REACTION, 09/03/16) Aspirin (Verified Adverse Reaction, Intermediate, LARGE DOSES ASPIRIN- BLEEDING AND ABDOMINAL IRRITATION, 09/03/16) CAN TAKE 81 MG. ASPIRIN Q2D Paroxetine (Verified Adverse Reaction, Mild, UPSET STOMACH, 09/03/16) Sertraline (Verified Adverse Reaction, Mild, UPSET STOMACH, 09/03/16) Clopidogrel (Verified Adverse Reaction, Unknown, UPSET STOMACH, 09/03/16) Medications Current Inpatient Medications Medications (Trade) Dose Ordered Sig/Edilson Route Start Time Stop Time Status Last Admin Dose Admin Felodipine (Plendil Tabcr) 2.5 mg QAM PO 09/04/16 09:00 8/13/17 08:59 Future Hold 09/05/16 08:44 2.5 MG Pantoprazole Sodium (Protonix Tab) 40 mg QAM PO 09/04/16 09:00 10/04/16 08:59 09/05/16 07:46 40 MG Simvastatin (Zocor Tab) 60 mg QPM PO 09/03/16 21:00 10/03/16 20:59 09/06/16 20:49 60 MG Ascorbic Acid (Vitamin C Tab) 250 mg QAM PO 09/04/16 09:00 10/04/16 08:59 09/05/16 07:47 250 MG Acetaminophen (Tylenol Tab) 650 mg Q4H PRN PO 09/03/16 11:30 10/03/16 11:29 09/06/16 22:01 650 MG Al Hydrox/Mg Hydrox/Simethicone (Maalox Max Susp) 15 ml Q4H PRN PO 09/03/16 11:30 10/03/16 11:29 Magnesium Hydroxide (Milk Of Magnesia Susp) 30 ml Q12H PRN PO 09/03/16 11:30 10/03/16 11:29 Ondansetron HCl (Zofran Inj) 4 mg Q6H PRN IV 09/03/16 11:30 10/03/16 11:29 09/05/16 06:35 4 MG Nitroglycerin (Nitrostat Tab) 0.4 mg UD PRN SL 09/03/16 11:30 10/03/16 11:29 Morphine Sulfate (MoRPHine SULFATE INJ) 2 mg Q30M PRN IV 09/03/16 11:30 09/17/16 11:29 09/04/16 05:18 2 MG Polyethylene (Miralax Powder Packet) 17 gm DAILY PRN PO 09/03/16 11:30 10/03/16 11:29 Albuterol/ Ipratropium (Duoneb) 3 ml Q6R INH 09/03/16 15:00 10/03/16 14:59 09/07/16 07:11 3 ML Ampicillin Sodium/ Sulbactam Sodium 3000 mg/Sodium Chloride 108 ml @ 200 mls/hr Q12@0400,1600 IV 09/03/16 16:00 09/10/16 15:59 09/07/16 04:18 200 MLS/HR Azithromycin 500 mg/Dextrose 255 ml @ 125 mls/hr DAILY@1600 IV 09/03/16 16:00 09/10/16 15:59 09/06/16 16:12 125 MLS/HR Albuterol Sulfate (Ventolin 0.083% 2.5MG/3ML Neb) 2.5 mg Q4H PRN INH 09/03/16 14:30 10/03/16 14:29 09/04/16 05:00 2.5 MG Ampicillin Sodium/ Sulbactam Sodium (Consult) 1 ea UD PRN N/A 09/03/16 15:15 10/03/16 15:14 Miscellaneous Information 1 ea UD PRN N/A 09/03/16 15:15 10/03/16 15:14 Sodium Bicarbonate (Sodium Bicarbonate Tab) 650 mg BID PO 09/04/16 09:00 10/04/16 08:59 09/06/16 20:48 650 MG Aspirin (Ecotrin Tab) 81 mg Q2D@0900 PO 09/05/16 09:00 10/05/16 08:59 09/05/16 07:47 81 MG Methylprednisolone Sodium Succinate 40 mg/Syringe 0.64 ml @ 1.5 mls/min Q8H IV 09/05/16 00:00 10/05/16 00:00 09/06/16 23:44 1.5 MLS/MIN Acetaminophen 650 mg/Empty Bag 65 ml @ 260 mls/hr Q4H PRN IV 09/07/16 02:00 10/07/16 01:59 Metoprolol Succinate (Toprol Xl Tab) 50 mg BID PO 09/07/16 09:00 10/03/16 20:59 Norepinephrine Bitartrate 8 mg/ Dextrose 508 ml @ 0 mls/hr Q0M PRN IV 09/07/16 08:15 10/07/16 08:14 Vitamin B Complex/ Vit C/Folic Acid (Nephrocaps) 1 cap QAM PO 09/08/16 09:00 10/08/16 08:59 UNV Impression (1) Kidney disease, chronic, stage IV (GFR 15-29 ml/min) (2) Pneumonia (3) Hypoxia (4) Hemoptysis (5) Elevated troponin (6) YVETTE (acute kidney injury) Mr. Gardner was admitted for evaluation of productive cough, hemoptysis and hypoxemia. Chest CT shows patchy consolidation on the R side. V/Q scan is indeterminate. LE doppler was negative for DVT. Patient has developed nonoliguric acute on CKD. Baseline creatinine has been 3.3 (EGFR 17). Chronic renal impairment is on the basis of HTN and renal vascular disease. Metabolic acidosis is due to acute renal insufficiency and infection. Troponin is progressively increasing. Echocardiogram 09/03 LVEF 35 - 40% w/ global hypokinesis. 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 Now reaching ESRD -- initial plan was to do first HD later this afternoon once pt clinically stable and BP improves. However, after discussion with the family and intensive care team, considering very poor prognosis, decision was to make him comfort care only.
--- NOTE | 2016-09-07 09:49 | Critical Care Progress Note ---
Critical Care Progress Note Date of Service Sep 07, 2016. Critical Care Progress Note Patient converted to comfort measures after extended CPR per request of patient' s daughter. Patient at 0931.
[2016-09-07] MEDS ORDERED: SODIUM CHLORIDE 0.9% INJ 10 ML VIAL IV ONE (10:59)
[2016-09-07] MEDS ORDERED: FENTANYL CITRATE 100 MCG 2 ML CARP IV ONE (10:59)
[2016-09-07] MEDS ORDERED: VECURONIUM BROMIDE 10 MG VIAL IV ONE (10:59)
[2016-09-07 12:10] LABS: LEGIONELLA ANTIGEN NOT DETECTED (NOT DETECTED)
--- NOTE | 2016-09-07 12:37 | Critical Care Progress Note ---
Critical Care Progress Note Date of Service Sep 07, 2016. ICU Day ICU Day Number: [address] Watson Subjective Not applicable: Patient seen by resident physician underwent cardiac arrest prior to my formal evaluation. Patient was discussed on morning rounds. Objective Patient in obvious distress Respiratory agonal respirations Cardiovascular: Pulse with chest compressions Current SOFA Score SOFA Score Response (Comments) Value Platelets (x10) < 100 2 Bilirubin (mg/dL) < 1.2 0 Flori Coma Score < 6 4 Level of Hypotension Dopamine > 15 mcq or Epi > 0.1 mcq 4 Creatinine (mg/dL) > 5.0 4 Total 14 Assessment & Plan Reason Critically Ill: Cardiomyopathy, volume overload, end-stage renal disease , hypoxic respiratory failure PLAN: Neuro: CAM ICU negative per nurses in the morning Resp: Patient suffered cardiac arrest requiring intubation by anesthesia CV: Patient went into complete heart block, requiring CPR and epinephrine administration. Rhythms would alternate between paroxysmal supraventricular tachycardia, bradycardia, complete heart block Fluids/Renal: Globally positive, minimal urine output, nephrology have been consult to for formal dialysis. Plan was to undergo dialysis today ID: No obvious infection at this time GI/Nutrition: Nothing by mouth, going to add fluid restriction of 1200 MLS Heme: Thrombocytopenia, anemia Endocrine: Blood Sugars within acceptable limits During the cardiac arrest I placed a left femoral arterial line to monitor cardiac output. Patient underwent cardiac arrest requiring multiple rounds of ACLS medications. Please see ACLS flow sheet for further details. I was able to get in touch with the patient's daughter, she reported that he did not want to undergo heroic measures, and if he was faced with a mechanical ventilator he would only want to be on it for 2-3 days. He certainly would not want to undergo tracheostomy. In the light of having suffered a cardiac arrest, requiring pacemaker, the need for most likely lifelong dialysis, and recent CPR with obvious rib fractures, the patient's daughter reported he would not want to undergo any further life-sustaining treatment. The patient was made DO NOT RESUSCITATE, terminally extubated and past peacefully with his daughter at the bedside. I have personally spent 90 minutes of critical care time in the direct management of this patient. This is a life/limb threatening event. This includes time spent evaluating patient, direct bedside care, chart review, placing orders, interpretation of diagnostic studies, discussion with consultants, patient, and family members, as well as other required patient management activities. This time is exclusive of all separately billable procedures, and teaching time and separate from and in addition to any other critical care service time. Consults & Procedures Consultants: Cardiology Nephrology Pulmonary Procedures: Left femoral arterial line placed 09/07/2016 Data Medications: Current Inpatient Medications Medications (Trade) Dose Ordered Sig/Edilson Route Start Time Stop Time Status Last Admin Dose Admin Felodipine (Plendil Tabcr) 2.5 mg QAM PO 09/04/16 09:00 10/04/16 08:59 Future Hold 09/05/16 08:44 2.5 MG Pantoprazole Sodium (Protonix Tab) 40 mg QAM PO 09/04/16 09:00 10/04/16 08:59 09/05/16 07:46 40 MG Simvastatin (Zocor Tab) 60 mg QPM PO 09/03/16 21:00 10/03/16 20:59 09/06/16 20:49 60 MG Ascorbic Acid (Vitamin C Tab) 250 mg QAM PO 09/04/16 09:00 10/04/16 08:59 09/05/16 07:47 250 MG Acetaminophen (Tylenol Tab) 650 mg Q4H PRN PO 09/03/16 11:30 10/03/16 11:29 09/06/16 22:01 650 MG Al Hydrox/Mg Hydrox/Simethicone (Maalox Max Susp) 15 ml Q4H PRN PO 09/03/16 11:30 10/03/16 11:29 Magnesium Hydroxide (Milk Of Magnesia Susp) 30 ml Q12H PRN PO 09/03/16 11:30 10/03/16 11:29 Ondansetron HCl (Zofran Inj) 4 mg Q6H PRN IV 09/03/16 11:30 10/03/16 11:29 09/05/16 06:35 4 MG Nitroglycerin (Nitrostat Tab) 0.4 mg UD PRN SL 09/03/16 11:30 10/03/16 11:29 Morphine Sulfate (MoRPHine SULFATE INJ) 2 mg Q30M PRN IV 09/03/16 11:30 09/17/16 11:29 09/04/16 05:18 2 MG Polyethylene (Miralax Powder Packet) 17 gm DAILY PRN PO 09/03/16 11:30 10/03/16 11:29 Albuterol/ Ipratropium (Duoneb) 3 ml Q6R INH 09/03/16 15:00 10/03/16 14:59 09/07/16 07:11 3 ML Ampicillin Sodium/ Sulbactam Sodium 3000 mg/Sodium Chloride 108 ml @ 200 mls/hr Q12@0400,1600 IV 09/03/16 16:00 09/10/16 15:59 09/07/16 04:18 200 MLS/HR Azithromycin 500 mg/Dextrose 255 ml @ 125 mls/hr DAILY@1600 IV 09/03/16 16:00 09/10/16 15:59 09/06/16 16:12 125 MLS/HR Albuterol Sulfate (Ventolin 0.083% 2.5MG/3ML Neb) 2.5 mg Q4H PRN INH 09/03/16 14:30 10/03/16 14:29 09/04/16 05:00 2.5 MG Ampicillin Sodium/ Sulbactam Sodium (Consult) 1 ea UD PRN N/A 09/03/16 15:15 10/03/16 15:14 Miscellaneous Information 1 ea UD PRN N/A 09/03/16 15:15 10/03/16 15:14 Aspirin (Ecotrin Tab) 81 mg Q2D@0900 PO 09/05/16 09:00 10/05/16 08:59 09/05/16 07:47 81 MG Methylprednisolone Sodium Succinate 40 mg/Syringe 0.64 ml @ 1.5 mls/min Q8H IV 09/05/16 00:00 10/05/16 00:00 09/06/16 23:44 1.5 MLS/MIN Acetaminophen 650 mg/Empty Bag 65 ml @ 260 mls/hr Q4H PRN IV 09/07/16 02:00 10/07/16 01:59 Metoprolol Succinate (Toprol Xl Tab) 50 mg BID PO 09/07/16 09:00 10/03/16 20:59 Norepinephrine Bitartrate 8 mg/ Dextrose 508 ml @ 0 mls/hr Q0M PRN IV 09/07/16 08:15 10/07/16 08:14 Vitamin B Complex/ Vit C/Folic Acid (Nephrocaps) 1 cap QAM PO 09/08/16 09:00 10/08/16 08:59 Epinephrine HCl 4 mg/Dextrose 254 ml @ 0 mls/hr Q0M PRN IV 09/07/16 08:30 10/07/16 08:29 Midazolam HCl 250 ml @ 0 mls/hr Q0M PRN IV 09/07/16 09:00 10/07/16 08:59 Dobutamine HCl 250 ml @ 0 mls/hr Q0M PRN IV 09/07/16 09:00 10/07/16 08:59 Vital Signs: Date Time Temp Pulse Resp B/P (MAP) Pulse Ox O2 Delivery O2 Flow Rate FiO2 09/07/16 09:23 111 92/52 (65) 09/07/16 09:15 70 27 116/48 (70) 09/07/16 09:03 89 16 50/28 (35) 09/07/16 09:00 67 14 35/11 (19) 09/07/16 08:03 106 23 77/49 (58) 96 High Flow Oxygen 50.0 96 09/07/16 07:30 High Flow Oxygen 50.0 96 09/07/16 07:11 104 27 91 Nasal Cannula 50.0 100 09/07/16 07:02 101 26 125/76 (92) 94 High Flow Oxygen 50.0 96 09/07/16 06:00 102 20 110/64 (79) 93 09/07/16 04:00 High Flow Oxygen 50.0 93 09/07/16 04:00 36.6 108 22 103/68 (80) 90 High Flow Oxygen 50.0 90 09/07/16 02:25 101 20 92 Nasal Cannula 50.0 100 09/07/16 02:00 102 26 110/75 (87) 09/07/16 00:00 High Flow Oxygen 50.0 93 09/07/16 00:00 36.7 99 20 106/63 (77) 93 High Flow Oxygen 50.0 90 09/06/16 22:00 90 24 96/64 (75) 92 High Flow Oxygen 50.0 90 09/06/16 20:00 36.5 90 19 99/61 (74) 95 High Flow Oxygen 50.0 90 09/06/16 20:00 High Flow Oxygen 50.0 90 09/06/16 19:16 92 16 93 Nasal Cannula 50.0 100 09/06/16 18:02 94 26 92/72 (79) 92 High Flow Oxygen 90 09/06/16 16:03 36.9 90 19 109/65 (80) 93 High Flow Oxygen 90 09/06/16 16:00 High Flow Oxygen 50.0 90 09/06/16 15:05 98 26 105/67 (80) 91 High Flow Oxygen 90 09/06/16 14:25 97 16 99 Nasal Cannula 50.0 100 09/06/16 14:02 95 30 100/65 (77) 94 High Flow Oxygen 100 09/06/16 13:03 90 23 97/61 (73) 93 High Flow Oxygen 100 Laboratory Results: Last 24 Hours Test 09/06/16 13:40 09/06/16 15:35 09/06/16 20:43 09/07/16 04:59 Urine Color YELLOW Urine Appearance CLEAR Urine pH 5.0 Urine Specific [place] 1.021 Urine Protein TRACE Urine Glucose (UA) NEG Urine Ketones NEG Urine Occult Blood 3+ Urine Nitrite NEG Urine Bilirubin NEG Urine Urobilinogen NEG Urine Leukocyte Esterase TRACE Urine WBC (Auto) 1-5 /hpf Urine RBC (Auto) >30 /hpf Urine Hyaline Casts (Auto) 1-5 /lpf Urine Epithelial Cells (Auto) 5-10 /lpf Urine Bacteria (Auto) NEG Bedside Glucose 146 mg/dl 165 mg/dl White Blood Count 11.06 K/uL Red Blood Count 3.60 M/uL Hemoglobin 11.5 g/dL Hematocrit 34.5 % Mean Corpuscular Volume 95.8 fL Mean Corpuscular Hemoglobin 31.9 pg Mean Corpuscular Hemoglobin Concent 33.3 g/dl RDW Standard Deviation 49.8 fL RDW Coefficient of Variation 14.3 % Platelet Count 95 K/uL Mean Platelet Volume 13.0 fL Nucleated RBC Absolute Count (auto) 0.06 K/uL Nucleated Red Blood Cells % 0.5 % Sodium Level 142 mmol/L Potassium Level 4.1 mmol/L Chloride Level 110 mmol/L Carbon Dioxide Level 17 mmol/L Anion Gap 15.0 mmol/L Blood Urea Nitrogen 128 mg/dl Creatinine 5.60 mg/dl Est Creatinine Clear Calc Drug Dose 12.7 ml/min Estimated GFR () 10.5 Estimated GFR (Non- 9.1 BUN/Creatinine Ratio 22.4 Random Glucose 184 mg/dl Calcium Level 7.4 mg/dl Troponin I 24.000 ng/ml Test 09/07/16 08:30
--- NOTE | 2016-09-07 12:43 | Procedure Note ---
Procedure Note Procedure Date Sep 07, 2016. Procedure Description Procedure Name: Left femoral arterial line Procedure time out: side/site verified Consent obtained: emergent consent implied Time of procedure: 08:45 Performed by: attending Indications: diagnostic Contraindications: none Description: Patient's left groin was prepped with chlorhexidine and draped in sterile fashion. Dynamic ultrasound guidance was utilized to confirm arterial placement. 3 mL's of 1% lidocaine was used to anesthetize the area. I modified Seldinger technique a guidewire was entered into the left femoral artery, position of the guidewire in the artery was confirmed by ultrasound. A 12 cm arterial catheter was inserted. After removal guidewire good waveform was noted. Patient tolerated the procedure well without complication. Complications: none Patient tolerated procedure: well Post-procedure vital signs: reviewed and stable Comments: Critical Care Medicine Point of Care Bedside Ultrasound Procedure: Procedural Ultrasound Procedure Date: 09/07/2016 Indication: Left arterial line placement Attending: Radha Watson DO Resident/Physician Internal Medicine Nurse Practitioner: Not applicable Artery AND Vein visualized: y Compressible Vein: y Artery pulsatile: Yes Guidewire or Short Catheter seen in artery: Yes Line confirmed in Artery with ultrasound: Yes Lung Sliding on side of attempt (if applicable): Not application If no lung sliding or not obtained has CXR been ordered: NA Impression: Successful placement of a left sided femoral arterial line Plan: Continued hemodynamic monitoring Images obtained are saved for permanent record
[2016-09-08] MEDS ORDERED: NEPHROCAPS PO SCH (09:00)
[2016-09-09 18:58] LABS: PNEUMOCOCCAL IGG TYPE 1 0.6; PNEUMOCOCCAL IGG TYPE 12(12F <0.3; PNEUMOCOCCAL IGG TYPE 14 <0.3; PNEUMOCOCCAL IGG TYPE 19(19F 1.7; PNEUMOCOCCAL IGG TYPE 23(23F 0.5; PNEUMOCOCCAL IGG TYPE 26 (6B 16.6; PNEUMOCOCCAL IGG TYPE 3 5.6; PNEUMOCOCCAL IGG TYPE 4 0.4; PNEUMOCOCCAL IGG TYPE 5 23.2; PNEUMOCOCCAL IGG TYPE 51 (7F 6.8; PNEUMOCOCCAL IGG TYPE 56(18C 6.3; PNEUMOCOCCAL IGG TYPE 8 0.3; PNEUMOCOCCAL IGG TYPE 9 (9N) 44.1
--- NOTE | 2016-09-16 09:10 | Death Summary ---
Summary of Admission Date Sep 03, 2016 at 11:36 Date & Time of Sep 07, 2016. 0931 Cause of Sudden cardiac arrest Secondary Diagnoses Severe sepsis secondary to multifocal pneumonia Acute hypoxic respiratory failure, possible ARDS NSTEMI CKD stage IV/V with progression to ESRD New systolic heart failure Ileus Hospital Course 76 y/o M Hx HTN, HPL, BPH, AAA, CKD IV - patient woke up suddenly with coughing spell, no dyspnea or cough prior to going to sleep. He then had a few episodes of hemoptysis described as sputum mixed with bright red blood. On arrival to the ER he was tachycardic and hypoxic into the mid 80s. Patient treated initially on telemetry for 2 days and required BIPAP to keep saturations in the 90's. Vitals otherwise were relatively stable. He was not in distress, no chest pain. Treated with IV antibiotics. Cr continued to get worse and morning of 09/06 he was transferred to the ICU due to possible further deterioration and the possible need for elective intubation and ventilation. Unfortunately he became unresponsive, bradycardia and PEA and required CPR, intubation on morning of 09/06. I was no longer on duty at that time but I was still the attending of record since no one had assumed his care. - Sudden cardiac arrest, bradycardia with heart block Code Blue called morning of 09/07 in the ICU, he was intubated and had return of circulation after CPR and medications ICU team had a discussion with patient's daughter Gemma, discussed poor prognosis, would be intubated, needing HD she said that he would not want to go on like this with poor quality of life he was electively extubated and peacefully on 09/07 - Severe sepsis secondary to multifocal pneumonia, POA: treated with Unasyn and Zithromax, stopped Vanco on 09/05 since MRSA swab negative patient responded well to antibiotics, afebrile, leukocytosis improving, blood cultures all negative, sputum cultures could not be obtained strong suspicion for aspiration event, on further questioning he admitted that he was vomiting recently could have vomited at night with aspiration - Acute hypoxic respiratory failure, possible ARDS vs cardiogenic edema: placed back on BIPAP on 09/05 and transferred to ICU on high flow nasal canula on 09/06 still not in distress but using accessory muscles, coarse breath sounds bilaterally could consider this to be ARDS, however, he does have systolic failure so the edema could be cardiogenic V/Q indeterminate, dopplers negative for DVT so doubt that this is related to a PE - NSTEMI: troponin fouzia to 15 after admission, never had chest pain, ST depression on tele monitor echocardiogram shows EF 35-40% with global hypokinesis aspirin 81mg every other day on metoprolol and Zocor difficult situation with CKD stage IV, heart cath could potentially push him into ESRD consult cardiology for recommendations, just continue to treat medically, no cath planned - CKD stage IV advanced to ESRD: worsening renal function, Cr up to 5.4 on 09/06 , K trending up slightly to 5.0 but still normal range non-oliguric with UO of 525cc yesterday planned for HD treatment on 09/07, however, patient suffered cardiac arrest prior to HD session - Ileus: hypoactive bowel sounds, no obstructive process on KUB per RN, patient had a BM 09/05 and felt better - Systolic heart failure: EF of 35% on echo after admission, unclear if edema is cardiogenic or non-cardiogenic UO 525cc yesterday continue metoprolol Copy To Seymour Romero M.D.; Davis Kendall M.D.
== END 2016-09-07 11:00 | disposition expired | DRG 871 ==
LOC: C.EDB 09:48 → C.2T 11:36 → ENRESERV 11:46 → C.MSICU 09-06 10:50
PROVIDERS: ADMIT Internal Medicine; ATTEND Internal Medicine
PROC: 03HY32Z Insertion of Monitoring Device into Upper Artery, Percutaneous Approach (ICD-10-PCS; principal; 2016-09-07)
PROC: 5A2204Z Restoration of Cardiac Rhythm, Single (ICD-10-PCS; 2016-09-07)
PROC: 5A12012 Performance of Cardiac Output, Single, Manual (ICD-10-PCS; 2016-09-07)
DX: A41.9 Sepsis, unspecified organism (principal); I21.4 Non-ST elevation (NSTEMI) myocardial infarction; N18.6 End stage renal disease; Z51.5 Encounter for palliative care; S22.49XA Multiple fractures of ribs, unspecified side, initial encounter for closed fracture; J69.0 Pneumonitis due to inhalation of food and vomit; J80 Acute respiratory distress syndrome; I13.2 Hypertensive heart and chronic kidney disease with heart failure and with stage 5 chronic kidney disease, or end stage renal disease; I42.9 Cardiomyopathy, unspecified; I50.21 Acute systolic (congestive) heart failure; I47.1 Supraventricular tachycardia; N17.9 Acute kidney failure, unspecified; I44.2 Atrioventricular block, complete; K56.7 Ileus, unspecified; E87.2 Acidosis; I46.9 Cardiac arrest, cause unspecified; N40.0 Benign prostatic hyperplasia without lower urinary tract symptoms; R65.20 Severe sepsis without septic shock; K22.70 Barrett's esophagus without dysplasia; I27.2 Other secondary pulmonary hypertension; J43.9 Emphysema, unspecified; I25.10 Atherosclerotic heart disease of native coronary artery without angina pectoris; I73.9 Peripheral vascular disease, unspecified; D69.6 Thrombocytopenia, unspecified; Z86.718 Personal history of other venous thrombosis and embolism; Z87.891 Personal history of nicotine dependence; Z86.74 Personal history of sudden cardiac arrest; Z66 Do not resuscitate; Z85.038 Personal history of other malignant neoplasm of large intestine; Y84.8 Other medical procedures as the cause of abnormal reaction of the patient, or of later complication, without mention of misadventure at the time of the procedure; Y92.239 Unspecified place in hospital as the place of occurrence of the external cause